=== PATIENT | male | born 1960 | race Caucasian/White ===

== ENCOUNTER 2022-11-27 09:00 | Emergency (ER) | payer OTHER ==
[2022-11-27 09:11] VITALS: RESP 18; TEMP 98
[2022-11-27] MEDS ORDERED: SODIUM CHLORIDE 0.9% 1,000 ML IV STA (09:35)
[2022-11-27] MEDS ORDERED: hydrALAZINE HCL 20 MG/ML 1 ML VIAL IVP STA ×2 (09:36→11:12)
[2022-11-27 10:06] LABS: ALT 23 U/L (4-49); AST 24 U/L (17-59); African American GFR (CKD) >90 (>60 ml/min/1.73 sqM); Albumin 4.6 g/dL (3.5-5.0); Alkaline Phosphatase 79 U/L (38-126); Anion Gap 8 mmol/L; Blood Urea Nitrogen 19 mg/dL (9-20); Calcium 9.2 mg/dL (8.4-10.2); Carbon Dioxide 25 mmol/L (22-30); Chloride 109 mmol/L (98-107); Glucose 100 mg/dL (74-99); Non-African American GFR(CKD) >90 (>60 ml/min/1.73 sqM); Potassium 4.1 mmol/L (3.5-5.1); Sodium 142 mmol/L (137-145); Total Bilirubin 0.6 mg/dL (0.2-1.3); Total Protein 7.4 g/dL (6.3-8.2)
[2022-11-27 10:16] LABS: Basophils # (A) 0.1 k/uL (0-0.2); Basophils % (A) 1 %; Eosinophils # (A) 0.1 k/uL (0-0.7); Eosinophils % (A) 2 %; HCT 49.6 % (39.0-53.0); HGB 16.6 gm/dL (13.0-17.5); Lymphocytes # (A) 1.2 k/uL (1.0-4.8); Lymphocytes % (A) 14 %; MCH 29.5 pg (25.0-35.0); MCHC 33.5 g/dL (31.0-37.0); MCV 88.1 fL (80.0-100.0); Mean Platelet Volume 7.5; Monocytes # (A) 0.4 k/uL (0-1.0); Monocytes % (A) 5 %; Neutrophils # (A) 7.1 k/uL (1.3-7.7); Neutrophils % (A) 78 %; Platelet Count 211 k/uL (150-450); RBC 5.63 m/uL (4.30-5.90); RDW 13.9 % (11.5-15.5)
--- NOTE | 2022-11-27 10:25 | XR ---
EXAMINATION TYPE: XR chest 2V DATE OF EXAM: 11/27/2022 COMPARISON: None HISTORY: 62-year-old male with weakness TECHNIQUE: PA and lateral views FINDINGS: Heart normal size. Aorta shows mild tortuosity. Pulmonary vasculature within normal limits. Some mini mal strandy atelectasis of the left base. No consolidation or pleural effusion. Extensive gauge mid a nd lower thoracic spine. Mild hyperinflation. IMPRESSION: Mild hyperinflation may relate to depth of inspiration or underlying emphysema. No acute cardiopulmon gulshan process. 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
[2022-11-27 10:27] VITALS: PULSE 67
[2022-11-27 10:30] LABS: Prothrombin Time 10.4 sec (9.0-12.0)
[2022-11-27 11:14] VITALS: BP 156/92
--- NOTE | 2022-11-27 11:16 | ED ---
General Adult HPI - General Chief complaint: Recheck/Abnormal Lab/Rx Stated complaint: wants a check up Time Seen by Provider: 11/27/22 09:13 Source: patient, family, RN notes reviewed Mode of arrival: ambulatory Limitations: no limitations - History of Present Illness Initial comments: 62-year-old male presents emergency Department with chief complaint of wanting a regular checkup. Patient states he has not seen a physician in a very long time. Patient states that he is brought in by family has no complaints he denies headache, dizziness, nausea, vomiting, chest pain, shortness of breath he does admit that he is a smoker at least one pack every 3 days. Patient states she does notice he urinates a large amount and friends up to be getting a large amount of water. He denies any leg pain or swelling denies any change in caliber of his stools he denies focal weakness he states he has some blurred vision but he wears glasses for this. - Related Data Previous Rx's Medication Instructions Recorded lisinopriL [Zestril] 10 mg PO DAILY #30 tab 11/27/22 Allergies Allergy/AdvReac Type Severity Reaction Status Date / Time Sulfa (Sulfonamide Allergy Swelling Verified 11/27/22 09:11 Antibiotics) Review of Systems ROS Statement: Those systems with pertinent positive or pertinent negative responses have been documented in the HPI. ROS Other: All systems not noted in ROS Statement are negative. Past Medical History Past Medical History: No Reported History History of Any Multi-Drug Resistant Organisms: None Reported Past Surgical History: No Surgical Hx Reported Past Psychological History: No Psychological Hx Reported Smoking Status: Current every day smoker Past Alcohol Use History: None Reported Past Drug Use History: None Reported General Exam Limitations: no limitations General appearance: alert, in no apparent distress Head exam: Present: atraumatic, normocephalic, normal inspection Eye exam: Present: normal appearance, PERRL, EOMI. Absent: scleral icterus, conjunctival injection, periorbital swelling ENT exam: Present: normal exam, normal oropharynx, mucous membranes moist Neck exam: Present: normal inspection, full ROM. Absent: tenderness, meningismus, lymphadenopathy Respiratory exam: Present: wheezes. Absent: normal lung sounds bilaterally, respiratory distress, rales, rhonchi, stridor Cardiovascular Exam: Present: regular rate, normal rhythm, normal heart sounds. Absent: systolic murmur, diastolic murmur, rubs, gallop, clicks GI/Abdominal exam: Present: soft, normal bowel sounds. Absent: distended, tenderness, guarding, rebound, rigid Neurological exam: Present: alert, oriented X3, CN II-XII intact, reflexes normal. Absent: motor sensory deficit Skin exam: Present: warm, dry, intact, normal color. Absent: rash Course Vital Signs 11/27/22 11/27/22 11/27/22 09:06 09:30 10:00 Temperature 98 F Pulse Rate 72 67 67 Respiratory 18 18 18 Rate Blood Pressure 221/119 195/101 180/89 O2 Sat by Pulse 99 100 100 Oximetry 11/27/22 11/27/22 10:30 11:00 Temperature Pulse Rate 69 67 Respiratory Rate Blood Pressure 176/94 156/92 O2 Sat by Pulse 100 100 Oximetry EKG Findings - EKG Comments: EKG Findings:: EKG performed at 9:28 sinus rhythm rate of 64 OH 1:30 QRS 116 QT/QTC 393/102 - EKG Results: EKG: interpreted by OMAR Medical Decision Making - Medical Decision Making Was pt. sent in by a medical professional or institution (, PA, BREAK OUT WORKER, urgent care, hospital, or skilled nursing...) When possible be specific @ -No Did you speak to anyone other than the patient for history (EMS, parent, family, police, friend...)? What history was obtained from this source @ -No Did you review nursing and triage notes (agree or disagree)? Why? @ -I reviewed and agree with nursing and triage notes Were old charts reviewed (outside hosp., previous admission, EMS record, old EKG, old radiological studies, urgent care reports/EKG's, skilled nursing records)? Report findings @ -No old charts were reviewed Differential Diagnosis (chest pain, altered mental status, abdominal pain women, abdominal pain men, vaginal bleeding, weakness, fever, dyspnea, syncope, headac he, dizziness, GI bleed, back pain, seizure, CVA, palpatations, mental health, musculoskeletal)? @ -[Hypertension, weakness, dehydration, renal failure, diabetes, this list is not all-inclusive EKG interpreted by me (3pts min.). @ -As above X-rays interpreted by me (1pt min.). @ -Chest x-ray shows DISH , otherwise no acute cardiopulmonary process CT interpreted by me (1pt min.). @ -None done U/S interpreted by me (1pt. min.). @ -None done What testing was considered but not performed or refused? (CT, X-rays, U/S, labs)? Why? @ -None What meds were considered but not given or refused? Why? @ -None Did you discuss the management of the patient with other professionals (professionals i.e. , PA, BREAK OUT WORKER, lab, RT, psych nurse, director social welfare, cork insulation installer, teacher, law enforcement officer, welfare case worker)? Give summary @ -No Was smoking cessation discussed for >3mins.? @ -I discussed smoking cessation for greater than 3 minutes. The risk of smoking were discussed with the patient including but not limited to risks of cancer, stroke, coronary artery disease and COPD. Also discussed with patient were multiple methods of quitting smoking. Lastly we discussed the financial cost of smoking. Was critical care preformed (if so, how long)? @ -No Were there social determinants of health that impacted care today? How? (Homelessness, low income, unemployed, alcoholism, drug addiction, transportation, low edu. Level, literacy, decrease access to med. care, fdc, rehab)? @ -No Was there de-escalation of care discussed even if they declined (Discuss DNR or withdrawal of care, Hospice)? DNR status @ -No What co-morbidities impacted this encounter? (DM, HTN, Smoking, COPD, CAD, Cancer, CVA, ARF, Chemo, Hep., AIDS, mental health diagnosis, sleep apnea, morbid obesity)? @ -None Was patient admitted / discharged? Hospital course, mention meds given and route, prescriptions, significant lab abnormalities, going to OR and other pertinent info. @ -Discharge patient does have hypertension blood pressures improved after hydralazine patient is asymptomatic updated lab results did have a long dis cussion regarding need for urgent follow-up close monitoring, smoking cessation Undiagnosed new problem with uncertain prognosis? @ -No Drug Therapy requiring intensive monitoring for toxicity (Heparin, Nitro, Insulin, Cardizem)? @ -No Were any procedures done? @ -No Diagnosis/symptom? @ -Hypertension Acute, or Chronic, or Acute on Chronic? @ -Acute Uncomplicated (without systemic symptoms) or Complicated (systemic symptoms)? @ -Uncomplicated Side effects of treatment? @ -No Exacerbation, Progression, or Severe Exacerbation? @ -No Poses a threat to life or bodily function? How? (Chest pain, [place], [place], pneumonia, PE, COPD, DKA, ARF, appy, cholecystitis, CVA, Diverticulitis, Homicidal, Suicidal, threat to staff... and all critical care pts) @ -No - Lab Data Result diagrams: 11/27/22 09:46 11/27/22 09:46 Lab Results 11/27/22 11/27/22 11/27/22 Range/Units 09:46 09:46 09:46 WBC 9.0 (3.8-10.6) k/uL RBC 5.63 (4.30-5.90) m/uL Hgb 16.6 (13.0-17.5) gm/dL Hct 49.6 (39.0-53.0) % MCV 88.1 (80.0-100.0) fL MCH 29.5 (25.0-35.0) pg MCHC 33.5 (31.0-37.0) g/dL RDW 13.9 (11.5-15.5) % Plt Count 211 (150-450) k/uL MPV 7.5 Neutrophils % 78 % Lymphocytes % 14 % Monocytes % 5 % Eosinophils % 2 % Basophils % 1 % Neutrophils # 7.1 (1.3-7.7) k/uL Lymphocytes # 1.2 (1.0-4.8) k/uL Monocytes # 0.4 (0-1.0) k/uL Eosinophils # 0.1 (0-0.7) k/uL Basophils # 0.1 (0-0.2) k/uL PT 10.4 (9.0-12.0) sec INR 1.0 (<1.2) APTT 22.0 (22.0-30.0) sec Sodium 142 (137-145) mmol/L Potassium 4.1 (3.5-5.1) mmol/L Chloride 109 H (98-107) mmol/L Carbon Dioxide 25 (22-30) mmol/L Anion Gap 8 mmol/L BUN 19 (9-20) mg/dL Creatinine 0.85 (0.66-1.25) mg/dL Est GFR (CKD-EPI)AfAm >90 (>60 ml/min/1.73 sqM) Est GFR (CKD-EPI)NonAf >90 (>60 ml/min/1.73 sqM) Glucose 100 H (74-99) mg/dL Plasma Lactic Acid Alexander (0.7-2.0) mmol/L Calcium 9.2 (8.4-10.2) mg/dL Magnesium 2.0 (1.6-2.3) mg/dL Total Bilirubin 0.6 (0.2-1.3) mg/dL AST 24 (17-59) U/L ALT 23 (4-49) U/L Alkaline Phosphatase 79 (38-126) U/L Troponin I (0.000-0.034) ng/mL Total Protein 7.4 (6.3-8.2) g/dL Albumin 4.6 (3.5-5.0) g/dL Urine Color Urine Appearance (Clear) Urine pH (5.0-8.0) Ur Specific Mcintosh (1.001-1.035) Urine Protein (Negative) Urine Glucose (UA) (Negative) Urine Ketones (Negative) Urine Blood (Negative) Urine Nitrite (Negative) Urine Bilirubin (Negative) Urine Urobilinogen (<2.0) mg/dL Ur Leukocyte Esterase (Negative) Urine RBC (0-5) /hpf Urine WBC (0-5) /hpf 11/27/22 11/27/22 11/27/22 Range/Units 09:46 09:46 09:46 WBC (3.8-10.6) k/uL RBC (4.30-5.90) m/uL Hgb (13.0-17.5) gm/dL Hct (39.0-53.0) % MCV (80.0-100.0) fL MCH (25.0-35.0) pg MCHC (31.0-37.0) g/dL RDW (11.5-15.5) % Plt Count (150-450) k/uL MPV Neutrophils % % Lymphocytes % % Monocytes % % Eosinophils % % Basophils % % Neutrophils # (1.3-7.7) k/uL Lymphocytes # (1.0-4.8) k/uL Monocytes # (0-1.0) k/uL Eosinophils # (0-0.7) k/uL Basophils # (0-0.2) k/uL PT (9.0-12.0) sec INR (<1.2) APTT (22.0-30.0) sec Sodium (137-145) mmol/L Potassium (3.5-5.1) mmol/L Chloride (98-107) mmol/L Carbon Dioxide (22-30) mmol/L Anion Gap mmol/L BUN (9-20) mg/dL Creatinine (0.66-1.25) mg/dL Est GFR (CKD-EPI)AfAm (>60 ml/min/1.73 sqM) Est GFR (CKD-EPI)NonAf (>60 ml/min/1.73 sqM) Glucose (74-99) mg/dL Plasma Lactic Acid Alexander 1.0 (0.7-2.0) mmol/L Calcium (8.4-10.2) mg/dL Magnesium (1.6-2.3) mg/dL Total Bilirubin (0.2-1.3) mg/dL AST (17-59) U/L ALT (4-49) U/L Alkaline Phosphatase (38-126) U/L Troponin I <0.012 (0.000-0.034) ng/mL Total Protein (6.3-8.2) g/dL Albumin (3.5-5.0) g/dL Urine Color Light Yellow Urine Appearance Clear (Clear) Urine pH 7.0 (5.0-8.0) Ur Specific Mcintosh 1.010 (1.001-1.035) Urine Protein Negative (Negative) Urine Glucose (UA) Negative (Negative) Urine Ketones Negative (Negative) Urine Blood Small H (Negative) Urine Nitrite Negative (Negative) Urine Bilirubin Negative (Negative) Urine Urobilinogen <2.0 (<2.0) mg/dL Ur Leukocyte Esterase Negative (Negative) Urine RBC 4 (0-5) /hpf Urine WBC <1 (0-5) /hpf Disposition Clinical Impression: Hypertension Disposition: HOME SELF-CARE Condition: Stable Instructions (If sedation given, give patient instructions): Hypertension (ED) Additional Instructions: Please return to the Emergency Department if symptoms worsen or any other concerns. Prescriptions: lisinopriL [Zestril] 10 mg PO DAILY #30 tab Is patient prescribed a controlled substance at d/c from ED?: No Referrals: Rex Colbert MD [REFERRING] - 1-2 days Time of Disposition: 11:43
[2022-11-27 11:24] LABS: Appearance,Urine Clear (Clear); Bilirubin,Urine Negative (Negative); Blood,Urine Small (Negative); Color,Urine Light Yellow; Glucose,Urine (UA) Negative (Negative); Ketones,Urine Negative (Negative); Leukocyte Esterase,Urine Negative (Negative); Nitrite,Urine Negative (Negative); Protein,Urine Negative (Negative); RBC,Urine 4 /hpf (0-5); Urobilinogen,Urine <2.0 mg/dL (<2.0); WBC,Urine <1 /hpf (0-5)
== END 2022-11-27 12:10 | disposition home or self-care (01) ==
LOC: EC 09:00
DX: I10 Essential (primary) hypertension (principal); F17.200 Nicotine dependence, unspecified, uncomplicated; Z88.2 Allergy status to sulfonamides
CPT/HCPCS: 36415; 93005; 80053; 83605; 83735; 84484; 85025; 85610; 85730; 81001; 71046; 99284; 96374; 96361 ×2; J0360

== ENCOUNTER 2024-01-06 11:03 | Inpatient (IN) | payer OTHER ==
[2024-01-06] MEDS: MIDAZOLAM 1 MG/ML 5 ML VIAL IV STA (11:11)
[2024-01-06] MEDS: SODIUM CHLORIDE 0.9% 1,000 ML IV STA (11:15)
[2024-01-06] MEDS ORDERED: NITROGLYCERIN SL TABS 0.4 MG TAB SUBLINGUAL PRN (11:31)
[2024-01-06] MEDS: AMIODARONE 360 MG in DEXTROSE 5% IN WATER 200 ML IV ONE (11:33)
[2024-01-06] MEDS: NOREPINEPHRINE 4 MG in SODIUM CHLORIDE 0.9% 250 ML IV ONE (11:47)
[2024-01-06 11:48] LABS: Basophils # (A) 0.1 k/uL (0-0.2); Basophils % (A) 1 %; Eosinophils # (A) 0.1 k/uL (0-0.7); Eosinophils % (A) 1 %; HCT 45.5 % (39.0-53.0); HGB 14.1 gm/dL (13.0-17.5); Hypochromasia Slight; Lymphocytes # (A) 4.5 k/uL (1.0-4.8); Lymphocytes % (A) 44 %; MCV 93.6 fL (80.0-100.0); Mean Platelet Volume 8.6; Monocytes # (A) 0.4 k/uL (0-1.0); Monocytes % (A) 4 %; Neutrophils % (A) 49 %; Platelet Count 164 k/uL (150-450); RBC 4.86 m/uL (4.30-5.90); RDW 13.7 % (11.5-15.5); WBC 10.2 k/uL (3.8-10.6)
[2024-01-06 11:52] LABS: INR 1.1 (<1.2); Partial Thromboplastin Time 24.2 sec (22.0-30.0); Prothrombin Time 12.1 sec (10.0-12.5)
[2024-01-06 11:59] LABS: ALT 32 U/L (4-49); AST 46 U/L (17-59); African American GFR (CKD) >90 (>60 ml/min/1.73 sqM); Alkaline Phosphatase 60 U/L (38-126); Anion Gap 12 mmol/L; Blood Urea Nitrogen 14 mg/dL (9-20); Carbon Dioxide 17 mmol/L (22-30); Chloride 111 mmol/L (98-107); Glucose 265 mg/dL (74-99); Non-African American GFR(CKD) 78 (>60 ml/min/1.73 sqM); Potassium 4.1 mmol/L (3.5-5.1); Sodium 140 mmol/L (137-145); Total Bilirubin 0.8 mg/dL (0.2-1.3); Total Protein 5.6 g/dL (6.3-8.2)
[2024-01-06] MEDS: NOREPINEPHRINE 32 MG in SODIUM CHLORIDE 0.9% 218 ML IV ONE (12:13)
[2024-01-06] MEDS ORDERED: NALOXONE 0.4 MG/ML 1 ML VIAL IV PRN (12:22)
[2024-01-06] MEDS: SODIUM CHLORIDE 0.9% 1,000 ML IV ONE ×2 (12:25→13:12)
--- NOTE | 2024-01-06 12:28 | XR ---
EXAMINATION TYPE: XR chest 1V portable DATE OF EXAM: 01/06/2024 12:18 PM CLINICAL INDICATION:Male, 63 years old with history of chest pain; [facility] COMPARISON: Chest radiograph from 11/27/2022 TECHNIQUE: XR chest 1V portable Frontal view of the chest. FINDINGS: ET tube tip 2.7 cm above the wendi. NG tube tip is well within the stomach. Lungs/Pleura: Cephalization of pulmonary venous flow interstitial edema Pulmonary vascularity: Unremarkable. Heart/mediastinum: Cardiomediastinal silhouette is unremarkable. Musculoskeletal: No acute osseous pathology. Other findings: None Lines/Tubes: Tracheostomy cannula tip projecting over the trachea. Nasogastric tube with distal tip projecting over the stomach. IMPRESSION: No acute cardiopulmonary disease/process. Well-positioned support lines and tubes
[2024-01-06] MEDS ORDERED: fentaNYL (PF) 50 MCG/ML 2 ML AMP ONE (12:42)
[2024-01-06] MEDS ORDERED: HEPARIN SODIUM 1,000 UN/ML (10ML VL) ONE (12:42)
--- NOTE | 2024-01-06 12:52 | P.CRDCN ---
History of Present Illness History of present illness: HISTORY OF PRESENTING ILLNESS This is a pleasant 63-year-old who presents secondary to cardiac arrest. Patient apparently had been doing fine and had gone down to the basement and then the followed him a few minutes later and found him collapsed unresponsive on the floor.patient currently unresponsive and not available to provide more history. Patient then had prolonged cardiac arrest with initial shockable rhythm ventricular fibrillation per EMS/E ER report. Patient had p rolonged CPR however good quality with mechanical CPR. Patient has had PEA and eventually had ROSC however is being maintained on norepinephrine with blood pressures in the 70s over 40s. patient with 3 mm pupils responsive to light and apparently had been breathing over the ventilator. EKG showsloss of P waves, what appears to be A. fib with widening QRS and mild ST elevation in V1 and V2. he did receive Versed for sedation. REVIEW OF SYSTEMS At the time of my exam: unable to obtain secondary to being intubated PHYSICAL EXAMINATION Vital signs reviewed. CONSTITUTIONAL: ill-appearing, intubated HEENT: Head is normocephalic. Pupils are equal, round. Sclerae anicteric. Mucous membranes of the mouth are moist. No JVD. No carotid bruit. CHEST EXAMINATION: Lungs are clear to auscultation. No chest wall tenderness is noted on palpation or with deep breathing. HEART EXAMINATION: IRRegular rate and rhythm. S1, S2 heard. No murmurs, gallops or rub. ABDOMEN: Soft, nontender. Positive bowel sounds. EXTREMITIES: trace peripheral pulses, no lower extremity edema and no calf tenderness. NEUROLOGIC EXAMINATION: Patient is intubated and sedated ASSESSMENT cardiac arrest, most likely acute coronary syndrome Non-STEMI Lactic acidosis Altered mental status, rule out hypoxic encephalopathy A. fib cardiogenic shock PLAN patient with cardiac arrest and abnormal EKG. 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 Patient and cardiogenic shock and may need support device. Check 2-D echo. Further recommendations to follow. Past Medical History Past Medical History: No Reported History History of Any Multi-Drug Resistant Organisms: None Reported Past Surgical History: No Surgical Hx Reported Past Psychological History: No Psychological Hx Reported Smoking Status: Current every day smoker Past Alcohol Use History: None Reported Past Drug Use History: None Reported Medications and Allergies Home Medications Medication Instructions Recorded Confirmed Type lisinopriL [Zestril] 10 mg PO DAILY #30 tab 11/27/22 01/06/24 Rx Tamsulosin HCl [Flomax] 0.4 mg PO HS 01/06/24 01/06/24 History Allergies Allergy/AdvReac Type Severity Reaction Status Date / Time Sulfa (Sulfonamide Allergy Swelling Verified 01/06/24 11:10 Antibiotics) Physical Exam Vitals: Vital Signs Temp Pulse Resp BP FiO2 01/06/24 12:15 66 18 78/54 01/06/24 12:10 64 18 78/57 01/06/24 12:05 72/55 01/06/24 12:03 75/57 01/06/24 11:45 61/45 01/06/24 11:40 64/47 01/06/24 11:35 65/54 01/06/24 11:30 82/61 100 01/06/24 11:24 97.2 F L 92/69 Intake and Output 01/05/24 01/06/24 01/06/24 22:59 06:59 14:59 Other: Weight 73.7 kg Results 01/06/24 11:35 01/06/24 11:35 Cardiac Enzymes 01/06/24 01/06/24 Range/Units 11:35 11:35 AST 46 (17-59) U/L Troponin I 0.086 H* (0.000-0.034) ng/mL Coagulation 01/06/24 Range/Units 11:35 PT 12.1 (10.0-12.5) sec APTT 24.2 (22.0-30.0) sec CBC 01/06/24 Range/Units 11:35 WBC 10.2 (3.8-10.6) k/uL RBC 4.86 (4.30-5.90) m/uL Hgb 14.1 (13.0-17.5) gm/dL Hct 45.5 (39.0-53.0) % Plt Count 164 (150-450) k/uL Comprehensive Metabolic Panel 01/06/24 Range/Units 11:35 Sodium 140 (137-145) mmol/L Potassium 4.1 (3.5-5.1) mmol/L Chloride 111 H (98-107) mmol/L Carbon Dioxide 17 L (22-30) mmol/L BUN 14 (9-20) mg/dL Creatinine 1.03 (0.66-1.25) mg/dL Glucose 265 H (74-99) mg/dL Calcium 8.0 L (8.4-10.2) mg/dL AST 46 (17-59) U/L ALT 32 (4-49) U/L Alkaline Phosphatase 60 (38-126) U/L Total Protein 5.6 L (6.3-8.2) g/dL Albumin 3.0 L (3.5-5.0) g/dL Current Medications Generic Name Dose Route Start Last Admin Trade Name Freq PRN Reason Stop Dose Admin Amiodarone HCl 360 mg/ 200 mls @ 33.333 mls/hr 01/06/24 12:00 01/06/24 11:33 Dextrose/Water IV 01/06/24 17:59 1 mg/min .Q6H ONE 33.333 mls/hr Administration Protocol 1 MG/MIN Amiodarone HCl 450 mg/ 250 mls @ 16.667 mls/hr 01/06/24 18:00 Dextrose/Water IV 01/07/24 11:59 .Q15H COREEN Protocol 0.5 MG/MIN Norepinephrine Bitartrate 4 mg 254 mls @ 9.996 mls/hr 01/06/24 11:41 01/06/24 11:47 / Sodium Chloride IV 01/07/24 11:40 0.03 mcg/kg/min .Q24H ONE 9.996 mls/hr Administration Protocol 0.03 MCG/KG/MIN Norepinephrine Bitartrate 32 250 mls @ 1.23 mls/hr 01/06/24 12:02 01/06/24 12:13 mg/ Sodium Chloride IV 01/07/24 12:01 0.03 mcg/kg/min .Q24H ONE 1.23 mls/hr Administration Protocol 0.03 MCG/KG/MIN Sodium Chloride 1,000 mls @ 999 mls/hr 01/06/24 12:24 01/06/24 12:25 Saline 0.9% IV 01/06/24 13:24 999 mls/hr .Q1H1M ONE Administration Naloxone HCl 0.2 mg 01/06/24 12:22 Naloxone 0.4 Mg/Ml 1 Ml Vial IV Q2M PRN Opioid Reversal Nitroglycerin 0.4 mg 01/06/24 11:31 Nitroglycerin Sl Tabs 0.4 Mg Tab SUBLINGUAL Q5M PRN Chest Pain Intake and Output 01/05/24 01/06/24 01/06/24 22:59 06:59 14:59 Other: Weight 73.7 kg Patient Weight 01/07/24 06:59 Weight 73.7 kg 01/06/24 11:35 01/06/24 11:35
[2024-01-06] MEDS: IV FLUID CONTINUATION 1,000 ML IV ONE ×2 (12:56)
[2024-01-06] MEDS: LIDOCAINE 1% INJ 10MG/ML (20 ML MDV) SQ ONE (12:57)
--- NOTE | 2024-01-06 12:58 | CT ---
EXAMINATION TYPE: CT brain wo con CT DLP: 1095.2 mGycm, Automated exposure control for dose reduction was used. DATE OF EXAM: 01/06/2024 12:41 PM COMPARISON: None. CLINICAL INDICATION:Male, 63 years old with history of Cardiac arrest with fall, Cardiac Arrest with Fall TECHNIQUE: Brain: Axial CT images of the brain were obtained with coronal and sagittal reformats created and rev iewed. Contrast used: None. Oral contrast used: None. FINDINGS: Brain: Extra-axial spaces: No abnormal extra-axial fluid collections. Ventricular system: Mildly prominent Cerebral parenchyma: No acute intraparenchymal hemorrhage or mass effect. The bojorquez-white junction is well differentiated Periventricular and deep white matter low attenuation consistent with chronic microangiopathy. Cerebellum: Unremarkable. Mass effect: No evidence of midline shift. Intracranial vasculature: unremarkable Soft tissues: Normal. Calvarium/osseous structures: No depressed skull fracture. Paranasal sinuses and mastoid air cells: Mild scattered paranasal sinus disease. Visualized orbits: Orbital contents are intact. IMPRESSION: No acute intracranial process. Involution and chronic microangiopathy.
[2024-01-06] MEDS ORDERED: ASPIRIN 81 MG ONE (13:04)
--- NOTE | 2024-01-06 13:04 | ED ---
General Adult HPI - General Chief complaint: Cardiac Arrest/CPR Stated complaint: Cardiac arrest Time Seen by Provider: 01/06/24 11:31 Source: family, EMS, RN notes reviewed, old records reviewed Mode of arrival: EMS Limitations: no limitations - History of Present Illness Initial comments: 63-year-old male with out of hospital cardiac arrest. According to family the patient had been not complaining of anything. He was in the basement doing laundry when the family heard him collapse. He was unresponsive without pulses. CPR was initiated by family and paramedics arrived relatively quickly. He was in a shockable rhythm and received 5 total defibrillations by paramedics and fire department. He regained pulses during transport. He had been intubated by paramedics in the field. Patient lost pulses again during transport and presented to the hospital in PEA rhythm. Resuscitation was continued according to ACLS guidelines. - Related Data Home Medications Medication Instructions Recorded Confirmed Tamsulosin HCl [Flomax] 0.4 mg PO HS 01/06/24 01/06/24 Previous Rx's Medication Instructions Recorded lisinopriL [Zestril] 10 mg PO DAILY #30 tab 11/27/22 Allergies Allergy/AdvReac Type Severity Reaction Status Date / Time Sulfa (Sulfonamide Allergy Swelling Verified 01/06/24 11:10 Antibiotics) Review of Systems ROS Statement: Those systems with pertinent positive or pertinent negative responses have been documented in the HPI. ROS Other: All systems not noted in ROS Statement are negative. Past Medical History Past Medical History: No Reported History History of Any Multi-Drug Resistant Organisms: None Reported Past Surgical History: No Surgical Hx Reported Past Psychological History: No Psychological Hx Reported Smoking Status: Current every day smoker Past Alcohol Use History: None Reported Past Drug Use History: None Reported General Exam General appearance: other (Cyanotic, agonal respirations) Eye exam: Present: PERRL (3 mm bilateral, sluggish root) Respiratory exam: Present: other (Decreased breath sounds bilaterally) Cardiovascular Exam: Present: other (No heart sounds) GI/Abdominal exam: Present: distended Extremities exam: Absent: pedal edema Skin exam: Present: cyanosis, pallor Course Vital Signs 01/06/24 01/06/24 01/06/24 11:24 11:30 11:35 Temperature 97.2 F L Pulse Rate [ Media Production Manager ] Respiratory Rate Blood Pressure 92/69 82/61 65/54 [Left Arm Supine] Fraction of 100 Inspired Oxygen (FIO2) 01/06/24 01/06/24 01/06/24 11:40 11:45 12:03 Temperature Pulse Rate [ Media Production Manager ] Respiratory Rate Blood Pressure 64/47 61/45 75/57 [Left Arm Supine] Fraction of Inspired Oxygen (FIO2) 01/06/24 01/06/24 01/06/24 12:05 12:10 12:15 Temperature Pulse Rate [ 64 66 Media Production Manager ] Respiratory 18 18 Rate Blood Pressure 72/55 78/57 78/54 [Left Arm Supine] Fraction of Inspired Oxygen (FIO2) Procedures - Central Line Placement Right Femoral Consent Obtained: emergent situation Patient Placed on Monitor/Pulse Ox: Yes MD Prep: gloves Central Line Prep: Chlorhexidine scrub Ultrasound Used for Placement: Yes Central Line Lumen Inserted: triple Bloods Obtained for Lab: Yes Central Line Position: good blood return, all ports aspirated, flushed, capped, sutured in place with 3-0 nylon Dressing Applied: Tegaderm Patient Tolerated Procedure: well Complications: none - Intubation Sedative: Versed Mg Given: 5 Laryngoscope: Jack Size: 4 ET Tube Size: 7.5 ET Tube Uncuffed: No Tube Secured Depth (cm): 23 Tube Secured Location: lips Tube Placement Confirmation: visualized tube passing through cords, equal breath sounds bilaterally, no breath sounds over epigastrium, confirmation by capnometry Patient Tolerated Procedure: well Intubation Complications: none Medical Decision Making - Medical Decision Making Was pt. sent in by a medical professional or institution (, PA, AEROBICS INSTRUCTOR, urgent care, hospital, or residential...) When possible be specific @ -No Did you speak to anyone other than the patient for history (EMS, parent, family, police, friend...)? What history was obtained from this source @ -No Did you review nursing and triage notes (agree or disagree)? Why? @ -I reviewed and agree with nursing and triage notes Were old charts reviewed (outside hosp., previous admission, EMS record, old EKG, old radiological studies, urgent care reports/EKG's, residential records)? Report findings @ -No old charts were reviewed Differential Diagnosis out of hospital cardiac arrest, pulmonary embolism, myocardial infarction, intracranial hemorrhage, aortic dissection EKG interpreted by me (3pts min.). @Prehospital EKG showing atrial fibrillation with elevation in aVL significant artifact limiting assessment. EKG at 1127 showing atrial fibrillation, wide-complex rhythm with ST segment elevation in V1 and V2 as well as aVL rate of 100, QRS duration 117, QTc 398 X-rays interpreted by me (1pt min.). @ -Postintubation x-ray showing appropriate placed ET tube and gastric tube. There is opacities in the bilateral lung dunlap likely pulmonary contusion from CPR. CT interpreted by me (1pt min.). @CT brain negative for intracranial hemorrhage. CT angiography of the chest negative for pulmonary embolism U/S interpreted by me (1pt. min.). @ -None done What testing was considered but not performed or refused? (CT, X-rays, U/S, labs )? Why? @ -None What meds were considered but not given or refused? Why? @ -None Did you discuss the management of the patient with other professionals (professionals i.e. Dr., PA, AEROBICS INSTRUCTOR, lab, RT, psych nurse, administrator social welfare, hazard waste handler, teacher, police liaison officer, case finisher)? Give summary @ -Case discussed with Dr. June covering for cardiology, Dr. Hagan the work and family life consultant and Dr. Marin the admitting physician. Was smoking cessation discussed for >3mins.? @ -No Was critical care preformed (if so, how long)? @ -Yes, 95 minutes Were there social determinants of health that impacted care today? How? (Homelessness, low income, unemployed, alcoholism, drug addiction, transportation, low edu. Level, literacy, decrease access to med. care, group home, rehab)? @ -No Was there de-escalation of care discussed even if they declined (Discuss DNR or withdrawal of care, Hospice)? DNR status @ -No What co-morbidities impacted this encounter? (DM, HTN, Smoking, COPD, CAD, Cancer, CVA, ARF, Chemo, Hep., AIDS, mental health diagnosis, sleep apnea, morbid obesity)? @ -hypertension Was patient admitted / discharged? Hospital course, mention meds given and route, prescriptions, significant lab abnormalities, going to OR and other pertinent info. @ -63-year-old male who does not regularly follow with a physician presenting with a out of hospital cardiac arrest. Please refer to the nursing documentat ion for details of his in-hospital resuscitation. There was prolonged CPR prior to arrival and CPR continued with intermittent episodes of return of spontaneous circulation. Patient was both in PEA as well as tracheal fibrillation and ventricular tachycardia. Patient was intubated by paramedics and reintubated by myself once in the emergency department. Patient had central line placed. His initial laboratory testing showed an elevated lactic which is consistent with prolonged downtime and and elevated troponin. The resuscitation was continued due to signs of life in the emergency department including pupillary reflex, breathing over the ventilator and cardiac activity on bedside echo. The patient had some improvement and ultimately regained an element of stability with several blood pressures in the 70s. He was continued on amiodarone and Levophed and ultimately taken to the Fisheries Director for the possibility of acute MD as a cause of his arrest. He will be admitted to the ICU. Undiagnosed new problem with uncertain prognosis? @ -No Drug Therapy requiring intensive monitoring for toxicity (Heparin, Nitro, Insulin, Cardizem)? @ -No Were any procedures done? @Yes, intubation and central line Diagnosis/symptom? @ -Out of hospital cardiac arrest with return of spontaneous circulation Acute, or Chronic, or Acute on Chronic? @Acute Uncomplicated (without systemic symptoms) or Complicated (systemic symptoms)? @ -Default Side effects of treatment? @ -No Exacerbation, Progression, or Severe Exacerbation? @ -No Poses a threat to life or bodily function? How? (Chest pain, USA, MD, pneumonia, PE, COPD, DKA, ARF, appy, cholecystitis, CVA, Diverticulitis, Homicidal, Suicidal, threat to staff... and all critical care pts) @ -[Yes, cardiac arrest, ACS - Lab Data Result diagrams: 01/07/24 15:03 01/07/24 10:17 Lab Results 01/05/24 01/06/24 01/06/24 Range/Units 23:25 11:35 11:35 WBC 10.2 (3.8-10.6) k/uL RBC 4.86 (4.30-5.90) m/uL Hgb 14.1 (13.0-17.5) gm/dL Hct 45.5 (39.0-53.0) % MCV 93.6 (80.0-100.0) fL MCH 29.0 (25.0-35.0) pg MCHC 31.0 (31.0-37.0) g/dL RDW 13.7 (11.5-15.5) % Plt Count 164 (150-450) k/uL MPV 8.6 Neutrophils % 49 % Lymphocytes % 44 % Monocytes % 4 % Eosinophils % 1 % Basophils % 1 % Neutrophils # 5.0 (1.3-7.7) k/uL Lymphocytes # 4.5 (1.0-4.8) k/uL Monocytes # 0.4 (0-1.0) k/uL Eosinophils # 0.1 (0-0.7) k/uL Basophils # 0.1 (0-0.2) k/uL Hypochromasia Slight PT 12.1 (10.0-12.5) sec INR 1.1 (<1.2) APTT 24.2 (22.0-30.0) sec ABG Lactic Acid 8.3 H* (0.5-1.6) mmol/L Sodium (137-145) mmol/L Potassium (3.5-5.1) mmol/L Chloride (98-107) mmol/L Carbon Dioxide (22-30) mmol/L Anion Gap mmol/L BUN (9-20) mg/dL Creatinine (0.66-1.25) mg/dL Est GFR (CKD-EPI)AfAm (>60 ml/min/1.73 sqM) Est GFR (CKD-EPI)NonAf (>60 ml/min/1.73 sqM) Glucose (74-99) mg/dL Lactic Ac Sepsis Rflx Plasma Lactic Acid Alexander (0.7-2.0) mmol/L Calcium (8.4-10.2) mg/dL Magnesium (1.6-2.3) mg/dL Total Bilirubin (0.2-1.3) mg/dL AST (17-59) U/L ALT (4-49) U/L Alkaline Phosphatase (38-126) U/L Troponin I (0.000-0.034) ng/mL Total Protein (6.3-8.2) g/dL Albumin (3.5-5.0) g/dL 01/06/24 01/06/24 01/06/24 Range/Units 11:35 11:35 11:35 WBC (3.8-10.6) k/uL RBC (4.30-5.90) m/uL Hgb (13.0-17.5) gm/dL Hct (39.0-53.0) % MCV (80.0-100.0) fL MCH (25.0-35.0) pg MCHC (31.0-37.0) g/dL RDW (11.5-15.5) % Plt Count (150-450) k/uL MPV Neutrophils % % Lymphocytes % % Monocytes % % Eosinophils % % Basophils % % Neutrophils # (1.3-7.7) k/uL Lymphocytes # (1.0-4.8) k/uL Monocytes # (0-1.0) k/uL Eosinophils # (0-0.7) k/uL Basophils # (0-0.2) k/uL Hypochromasia PT (10.0-12.5) sec INR (<1.2) APTT (22.0-30.0) sec ABG Lactic Acid (0.5-1.6) mmol/L Sodium 140 (137-145) mmol/L Potassium 4.1 (3.5-5.1) mmol/L Chloride 111 H (98-107) mmol/L Carbon Dioxide 17 L (22-30) mmol/L Anion Gap 12 mmol/L BUN 14 (9-20) mg/dL Creatinine 1.03 (0.66-1.25) mg/dL Est GFR (CKD-EPI)AfAm >90 (>60 ml/min/1.73 sqM) Est GFR (CKD-EPI)NonAf 78 (>60 ml/min/1.73 sqM) Glucose 265 H (74-99) mg/dL Lactic Ac Sepsis Rflx Plasma Lactic Acid Alexander 7.9 H* (0.7-2.0) mmol/L Calcium 8.0 L (8.4-10.2) mg/dL Magnesium 2.0 (1.6-2.3) mg/dL Total Bilirubin 0.8 (0.2-1.3) mg/dL AST 46 (17-59) U/L ALT 32 (4-49) U/L Alkaline Phosphatase 60 (38-126) U/L Troponin I 0.086 H* (0.000-0.034) ng/mL Total Protein 5.6 L (6.3-8.2) g/dL Albumin 3.0 L (3.5-5.0) g/dL 01/06/24 Range/Units 12:00 WBC (3.8-10.6) k/uL RBC (4.30-5.90) m/uL Hgb (13.0-17.5) gm/dL Hct (39.0-53.0) % MCV (80.0-100.0) fL MCH (25.0-35.0) pg MCHC (31.0-37.0) g/dL RDW (11.5-15.5) % Plt Count (150-450) k/uL MPV Neutrophils % % Lymphocytes % % Monocytes % % Eosinophils % % Basophils % % Neutrophils # (1.3-7.7) k/uL Lymphocytes # (1.0-4.8) k/uL Monocytes # (0-1.0) k/uL Eosinophils # (0-0.7) k/uL Basophils # (0-0.2) k/uL Hypochromasia PT (10.0-12.5) sec INR (<1.2) APTT (22.0-30.0) sec ABG Lactic Acid (0.5-1.6) mmol/L Sodium (137-145) mmol/L Potassium (3.5-5.1) mmol/L Chloride (98-107) mmol/L Carbon Dioxide (22-30) mmol/L Anion Gap mmol/L BUN (9-20) mg/dL Creatinine (0.66-1.25) mg/dL Est GFR (CKD-EPI)AfAm (>60 ml/min/1.73 sqM) Est GFR (CKD-EPI)NonAf (>60 ml/min/1.73 sqM) Glucose (74-99) mg/dL Lactic Ac Sepsis Rflx Y Plasma Lactic Acid Alexander (0.7-2.0) mmol/L Calcium (8.4-10.2) mg/dL Magnesium (1.6-2.3) mg/dL Total Bilirubin (0.2-1.3) mg/dL AST (17-59) U/L ALT (4-49) U/L Alkaline Phosphatase (38-126) U/L Troponin I (0.000-0.034) ng/mL Total Protein (6.3-8.2) g/dL Albumin (3.5-5.0) g/dL Critical Care Time Critical Care Time: Yes Total Critical Care Time: 95 Disposition Clinical Impression: Cardiac arrest Disposition: ADMITTED IP TO THIS HOSP Condition: Serious Is patient prescribed a controlled substance at d/c from ED?: No Time of Disposition: 12:30
[2024-01-06] MEDS: ASPIRIN 81 MG NG-TUBE ONE (13:05)
--- NOTE | 2024-01-06 13:05 | CT ---
EXAMINATION TYPE: CT angio chest CT DLP: 381 mGycm, Automated exposure control for dose reduction was used. DATE OF EXAM: 01/06/2024 12:42 PM COMPARISON: Chest radiograph from same day. CLINICAL INDICATION:Male, 63 years old with history of cardiac arrest; Cardiac Arrest with Fall TECHNIQUE/CONTRAST: CTA scan of the thorax is performed without and with IV Contrast, patient injected with 100 ml mL of Isovue 370, MIP images are created and reviewed these are created on a separate workstation.. FINDINGS: Pulmonary Artery: There is no evidence for a filling defect within the pulmonary vasculature to sugge st acute pulmonary embolism. The pulmonary artery is of normal size. Lungs/Pleura: There are areas of groundglass airspace disease and consolidating airspace disease depe ndently throughout both lungs. This is likely a significant bilateral pneumonia. Correlate clinically .. Airway: Endotracheal tube seen in the trachea. Heart: Heart is within normal limits for size. Vasculature: No evidence of aortic aneurysm. Mediastinum: No gross evidence of adenopathy. Musculoskeletal: No acute osseous abnormalities Soft Tissues: Unremarkable. Lower neck: No significant findings. Upper Abdomen: NG tube tip approaches greater curvature stomach.. IMPRESSION: 1. No evidence of pulmonary embolism. 2. Peripheral groundglass pulmonary opacities and consolidating airspace disease with air bronchogram s. Pleural effusions. Likely pneumonia. Correlate with WBC.
[2024-01-06] MEDS: MIDAZOLAM 2 MG/2 ML VIAL IVP ONE (13:09)
[2024-01-06] MEDS: VERAPAMIL SYRINGE (5 MG/10 ML) INTRAARTER ONE (13:10)
[2024-01-06] MEDS: HEPARIN SODIUM 1,000 UN/ML (10ML VL) IV ONE ×2 (13:11→15:43)
[2024-01-06] MEDS: IOPAMIDOL-370 100ML BTL INJ ONE ×3 (13:26→14:35)
[2024-01-06] MEDS ORDERED: TICAGRELOR 90 MG TAB ONE (13:40)
[2024-01-06] MEDS: TICAGRELOR 90 MG TAB NG-TUBE ONE (13:45)
[2024-01-06] MEDS: TICAGRELOR 90 MG TAB PO ONE (13:45)
[2024-01-06] MEDS: fentaNYL (PF) 50 MCG/ML 2 ML AMP IVP ONE (14:08)
[2024-01-06 14:27] LABS: O2 Sat Blood Gas 95.4 %
[2024-01-06 14:28] LABS: O2 Sat Blood Gas 50.8 %
[2024-01-06 14:29] LABS: O2 Sat Blood Gas 50.2 %
[2024-01-06] MEDS ORDERED: ZOLPIDEM 5 MG TAB PO PRN (14:47)
[2024-01-06] MEDS ORDERED: ATROPINE SULFATE 0.1 MG/ML 10ML SYRINGE IV PRN (14:47)
[2024-01-06] MEDS ORDERED: MAG HYDROX/AL HYDROX/SIMETH 30 ML CUP PO PRN (14:47)
[2024-01-06] MEDS ORDERED: RX INFO: IV CONTRAST WAS GIVEN 1 EACH MISC MISCELLANE PRN (14:47)
[2024-01-06] MEDS ORDERED: DEXTROSE 50% SYRINGE 50 ML IVP PRN ×2 (15:38)
[2024-01-06] MEDS ORDERED: fentaNYL (PF) 50 MCG/ML 2 ML AMP IVP PRN (15:39)
[2024-01-06 15:40] LABS: Glucose,Whole Blood 283 mg/dL (70-110)
[2024-01-06 15:43] LABS: ABG Base Excess -6.5 mmol/L; ABG HCO3 20 mmol/L (21-25); ABG Oxygen Saturation 94.8 % (94-97); ABG PCO2 42 mmHg (35-45); ABG PH 7.29 (7.35-7.45); ABG PO2 76 mmHg (83-108); ABG TCO2 21 mmol/L (19-24); Allen Test Performed? Yes
[2024-01-06] MEDS: SODIUM BICARB (1 MEQ/ML) 12.5 ML in DEXTROSE 5% IN WATER 500 ML IV SCH (15:44)
[2024-01-06] MEDS: propofoL 100 ML IV ONE (15:44)
[2024-01-06] MEDS: SODIUM CHLORIDE 0.9% 1,000 ML IV SCH (15:44)
[2024-01-06] MEDS: SODIUM CHLORIDE 0.9% 1,000 ML in EMPTY BAG 1 BAG IV SCH (15:45)
[2024-01-06] MEDS: CISATRACURIUM 2 MG/ML 5 ML VIAL IV ONE (15:45)
--- NOTE | 2024-01-06 15:51 | P.CNPUL ---
History of Present Illness Consult date: 01/06/24 Requesting physician: Tonya Salguero Reason for consult: other Chief complaint: [id number] cardiopulmonary arrest. History of present illness: Pulmonary consult dated January 06, 2024. 63-year-old male who had a [id number] cardiac arrest. The patient apparently had not been complaining of anything before the arrest. He apparently was down in the basement doing laundry, when the family heard him collapse. He apparently was unresponsive without pulses. CPR was initiated by the family, and when the paramedics arrived, he apparently was defibrillated 5 times, and, was intubated at the scene. In the route, he lost pulses again, and apparently was in PEA. He apparently was resuscitated according to ACLS guidelines. The patient was further resuscitated in the emergency department, and apparently lost his pulse numerous times, with continuation of CPR. The patient is seen in the intensive care unit. He apparently was here in the hospital, in mid November, brought in because he was not feeling well, diagnosed with hypertension, and sent home on a pill for hypertension. I believe he was on both Flomax, and lisinopril. The patient apparently has not seen a doctor in many years. He apparently was a tobacco user. The patient is seen in the intensive care unit. He is currently vented. Ventilator settings include volume assist-control, rate 16, tidal volume 450, FiO2 100%, PEEP of 8. The patient is on amiodarone at 1 mg/min, and norepinephrine at 0.5 mcg/kg/min. We placed a right radial art line. The patient ended up going to the catheterization laboratory, was found to have a 100% LAD lesion, was stented, and an Impella device was placed. Brain CT showed nothing acute. Chest x-ray showed an endotracheal tube about 3 cm above the tracheal wendi. CTA was negative for pulmonary embolism, but did show some groundglass changes, potentially consistent with pneumonia or fluid overload. Repeat chest x-ray shows primarily upper lobe airspace disease. Laboratory data includes a white count 10.2, hemoglobin 14.1, hematocrit 45.5, and a platelet count of 164,000. Sodium 140, potassium 4.1, chlorides 111, CO2 17, anion gap 12, BUN 14, and creatinine 1.03. Lactic acid 7.9. Calcium 8. Troponin 0.086. Albumin is 3. Glucose is 283. Review of Systems REVIEW OF SYSTEMS: Review of systems could not be obtained. CONSTITUTIONAL: [Negative.] NEUROLOGIC: [ Negative.] HEENT: [ Negative.] CARDIAC: [Negative.] PULMONARY: [Negative.] GI: [Negative.] : [Negative.] RHEUMATOLOGIC: [ Negative.] IMMUNOLOGIC: [ Negative.] ENDOCRINE: [Negative. ] DERMATOLOGIC: [Negative.] Past Medical History Past Medical History: No Reported History History of Any Multi-Drug Resistant Organisms: None Reported Past Surgical History: No Surgical Hx Reported Past Psychological History: No Psychological Hx Reported Smoking Status: Current every day smoker Past Alcohol Use History: None Reported Past Drug Use History: None Reported Medications and Allergies Home Medications Medication Instructions Recorded Confirmed Type lisinopriL [Zestril] 10 mg PO DAILY #30 tab 11/27/22 01/06/24 Rx Tamsulosin HCl [Flomax] 0.4 mg PO HS 01/06/24 01/06/24 History Allergies Allergy/AdvReac Type Severity Reaction Status Date / Time Sulfa (Sulfonamide Allergy Swelling Verified 01/06/24 11:10 Antibiotics) Physical Exam Osteopathic Statement: *. No significant issues noted on an osteopathic structural exam other than those noted in the History and Physical/Consult. Vitals: Vital Signs Temp Pulse Resp BP FiO2 01/06/24 13:24 100 01/06/24 12:15 66 18 78/54 01/06/24 12:10 64 18 78/57 01/06/24 12:05 72/55 01/06/24 12:03 75/57 01/06/24 11:45 61/45 01/06/24 11:40 64/47 01/06/24 11:35 65/54 01/06/24 11:30 82/61 100 01/06/24 11:24 97.2 F L 92/69 Intake and Output 01/06/24 01/06/24 01/06/24 06:59 14:59 22:59 Intake Total 450 Balance 450 Intake: IV 450 Other: Weight 73.7 kg No acute distress, sedated, with an orally placed endotracheal tube. HEENT examination is grossly unremarkable. Neck supple. Full range of motion. No adenopathy thyromegaly or neck vein distention. Cardiovascular examination reveals regular rhythm rate. S1-S2 normal. No S3 or S4. No discernible murmur noted. Heart rate 66 bpm. Heart sounds distant. Lungs reveal coarse rhonchi. Breath sounds equal. No wheezes. Few scattered crackles. Breath sounds equal. Abdomen soft without bowel sounds. No masses or tenderness. Extremities are intact. No cyanosis clubbing or edema. Skin is without rash or lesion. Neurologic examination cannot be assessed. Results - Laboratory Findings CBC and BMP: 01/06/24 11:35 01/06/24 11:35 PT/INR, D-dimer PT 12.1 sec (10.0-12.5) 01/06/24 11:35 INR 1.1 (<1.2) 01/06/24 11:35 Abnormal lab findings: Abnormal Labs 01/06/24 01/06/24 01/06/24 11:35 11:35 11:35 Chloride 111 H Carbon Dioxide 17 L Glucose 265 H Plasma Lactic Acid Alexander 7.9 H* Calcium 8.0 L Troponin I 0.086 H* Total Protein 5.6 L Albumin 3.0 L - Diagnostic Findings Chest x-ray: image reviewed CT scan - chest: image reviewed Assessment and Plan Assessment: S/P out of hospital cardiopulmonary arrest, with prolonged resuscitation, and eventual return of spontaneous circulation. S/P intubation, and mechanical ventilation, secondary to cardiopulmonary arrest. 100% LAD lesion, with stenting, and placement of an Impella device. Non-ST segment elevation myocardial infarction. Severe hypotension, secondary to cardiogenic shock. Atrial fibrillation. Lactic acidosis. Non-anion gap metabolic acidosis. Recent diagnosis of hypertension. History of chronic tobacco use. Plan: Plan dated January 06, 2024. The patient is seen in the intensive care unit. We placed a right radial art line. The patient is on amiodarone at 1 mg/min. In addition, the patient is receiving norepinephrine at 0.5 mcg/kg/min. I have asked the nurses to start vasopressin, to maintain a mean arterial pressure of 65 to 70 mmHg. The blood gas showed a pO2 of 76, pCO2 of 42, and a pH of 7.287. I have asked the nurses to give the patient 2 A of sodium bicarbonate. Labs, x-rays, medications are reviewed. The patient is overall prognosis remains very guarded given the fact that he has had such a prolonged period of resuscitation. In fact, the patient developed ventricular tachycardia, on the way to the ICU, and was cardioverted. We will continue to follow make recommendations. Time with Patient: Greater than 30
[2024-01-06 15:55] LABS: Basophils % (A) 0 %; Eosinophils # (A) 0.1 k/uL (0-0.7); Eosinophils % (A) 0 %; HCT 42.9 % (39.0-53.0); HGB 14.1 gm/dL (13.0-17.5); Lymphocytes # (A) 1.3 k/uL (1.0-4.8); Lymphocytes % (A) 6 %; MCH 29.7 pg (25.0-35.0); MCHC 32.9 g/dL (31.0-37.0); MCV 90.5 fL (80.0-100.0); Mean Platelet Volume 8.8; Monocytes # (A) 0.8 k/uL (0-1.0); Monocytes % (A) 4 %; Neutrophils # (A) 19.8 k/uL (1.3-7.7); Neutrophils % (A) 90 %; Platelet Count 208 k/uL (150-450); RBC 4.74 m/uL (4.30-5.90); RDW 14.3 % (11.5-15.5); WBC 22.1 k/uL (3.8-10.6)
[2024-01-06] MEDS: HEPARIN SOD,PORK IN 0.45% NACL 25,000 UNIT in 0.45% NACL 1 250ML.BAG IV SCH (15:56)
[2024-01-06] MEDS: SODIUM BICARB 8.4% 50 ML SYR (1 MEQ/ML) IV STA (15:57)
[2024-01-06] MEDS: INSULIN ASPART (NovoLOG) 100 UNIT/ML VIAL SQ SCH (15:59)
[2024-01-06 16:12] LABS: INR 1.3 (<1.2); Prothrombin Time 13.2 sec (10.0-12.5)
[2024-01-06] MEDS: VASOPRESSIN 60 UNIT in SODIUM CHLORIDE 0.9% 150 ML IV SCH (16:14)
[2024-01-06 16:15] LABS: African American GFR (CKD) 76 (>60 ml/min/1.73 sqM); Anion Gap 10 mmol/L; Blood Urea Nitrogen 18 mg/dL (9-20); Calcium 8.6 mg/dL (8.4-10.2); Carbon Dioxide 19 mmol/L (22-30); Chloride 111 mmol/L (98-107); Glucose 274 mg/dL (74-99); Non-African American GFR(CKD) 66 (>60 ml/min/1.73 sqM); Sodium 140 mmol/L (137-145)
[2024-01-06 16:21] LABS: Potassium 3.6 mmol/L (3.5-5.1)
[2024-01-06 16:22] LABS: Magnesium 3.2 mg/dL (1.6-2.3)
[2024-01-06 16:23] LABS: Partial Thromboplastin Time 185.7 sec (22.0-30.0)
--- NOTE | 2024-01-06 16:23 | XR ---
EXAMINATION TYPE: XR chest 1V portable DATE OF EXAM: 01/06/2024 COMPARISON: 01/06/2024 INDICATION: Line placement TECHNIQUE: Single frontal view of the chest is obtained. FINDINGS: The heart size is mildly prominent. The pulmonary vasculature is prominent. Upper lung dunlap are partially opacified. Correlate for pulmonary edema. Some focal increased infilt rates in the right infrahilar region. Atelectasis and pneumonia could be considered. Atypical pneumon ia could be considered. Endotracheal tube tip is 5.7 cm above the wendi. [place] catheter tip is in the region of the pain pulmonary artery. No pneumothorax is evident. A balloon pump appears to be present on the expected r egion of the ascending thoracic aorta near the level of the pulmonary arteries. Nasogastric tube ingram sverses the thorax with the tip in the abdomen. IMPRESSION: 1. Clinical correlation for worsening pulmonary edema bilateral upper lung dunlap. 2. Aortic pump in the mid ascending thoracic aorta. 3. Placement of a [place] catheter tip in the region of the main pulmonary artery. No pneumothorax.
[2024-01-06] MEDS: AMIODARONE 450 MG in DEXTROSE 5% IN WATER 250 ML IV SCH (17:12)
[2024-01-06 18:43] LABS: Partial Thromboplastin Time 82.9 sec (22.0-30.0)
[2024-01-06 20:41] LABS: Glucose,Whole Blood 185 mg/dL (70-110)
[2024-01-06] MEDS: ATORVASTATIN 40 MG TAB PO SCH (21:21)
[2024-01-06] MEDS: CHLORHEXIDINE GLUCONATE 15 ML CUP MUCOUS MEM SCH (21:22)
[2024-01-06] MEDS: LIDOCAINE-D5W PMX 2G/250ML 2,000 MG in DEXTROSE/WATER 1 250ML.BAG IV SCH (21:26)
--- NOTE | 2024-01-06 21:48 | OP ---
OPERATIVE REPORT DATE OF SERVICE : PROCEDURE PERFORMED: Right radial arterial line. PREOPERATIVE DIAGNOSIS: Hypotension, frequent blood draws. POSTOPERATIVE DIAGNOSIS: Hypotension, frequent blood draws. CO-SURGEON: Dr. Austin. There was informed consent and universal timeout. ARTERIAL LINE PLACEMENT: Indications: Hemodynamic monitoring. A time-out was completed verifying correct patient, procedure, site, positioning, and implant or special equipment if applicable. Lang's test was performed to ensure adequate perfusion. The patient's right wrist was prepped and draped in sterile fashion. 1% Lidocaine was used to anesthetize the area. An 18G [place] arterial line was introduced into the radial/femoral artery. The catheter was threaded over the guide wire and the needle was removed with appropriate pulsatile blood return. Blood loss was minimal. The catheter was then sutured in place to the skin and a sterile dressing applied. Perfusion to the extremity distal to the point of catheter insertion was checked and found to be adequate. There was good blood return and waveform. The patient tolerated the procedure well. The catheter was sutured in place. A sterile dressing was applied by the nurse. There was no immediate complication. The patient tolerated the procedure well. MMODL / IJN: [id number] /
[2024-01-06 22:54] LABS: African American GFR (CKD) 48 (>60 ml/min/1.73 sqM); Anion Gap 12 mmol/L; Blood Urea Nitrogen 20 mg/dL (9-20); Calcium 8.3 mg/dL (8.4-10.2); Carbon Dioxide 16 mmol/L (22-30); Chloride 112 mmol/L (98-107); Glucose 183 mg/dL (74-99); Non-African American GFR(CKD) 42 (>60 ml/min/1.73 sqM); Sodium 140 mmol/L (137-145)
[2024-01-06 23:13] LABS: Potassium 4.5 mmol/L (3.5-5.1)
[2024-01-06 23:46] LABS: HCT 41.6 % (39.0-53.0); HGB 13.4 gm/dL (13.0-17.5); MCH 28.7 pg (25.0-35.0); MCHC 32.1 g/dL (31.0-37.0); MCV 89.3 fL (80.0-100.0); Platelet Count 201 k/uL (150-450); RBC 4.66 m/uL (4.30-5.90); WBC 17.9 k/uL (3.8-10.6)
--- NOTE | 2024-01-07 00:40 | P.PRCINT ---
Percutaneous Coronary Int. - Percutaneous Coronary Intervention Percutaneous Coronary Intervention: PROCEDURES PERFORMED: Left heart catheterization, bilateral coronary angiography, ultrasound guided arterial access, Impella CP placement, left femoral angiogram, PCI proximal to mid LAD with a 5.0 x 18mm Xience ALIVIA, post dilated with a 5.5mm NC balloon, IVUS LAD, right heart catheterization INDICATION: Cardiogenic shock, acute coronary syndrome, cardiac arrest CONSENT:I have discussed the risks, benefits and alternative therapies for the above-mentioned procedure and for both sedation/analgesia as well as necessary blood product administration, if indicated, as they pertain to this patient. The patient has indicated understanding and acceptance of the risks and procedures discussed. PROCEDURE: After the risks, benefits and alternatives of the above mentioned procedure explained in detail with the patient, informed consent was obtained. Patient was taken to the catheterization lab and prepped and draped in usual fashion. Ultrasound guidance was used to assess for arterial access. 1% lidocaine was used to anesthetize the right left femoral artery. A 6-Telugu sheath was placed in the left femoral artery using modified Seldinger technique and ultrasound guidance. A 6FR pigtail catheter was inserted into the left ventricle and LVEDP/ cardiac power were consistent with cardiogenic shock and therefore decision made to place an Impella. 2 Percloses were deployed in the 10 and 2 O'clock positions. Heparin was given. The left femoral angiogram showed adequate anatomy for 14 Fr sheath placement. The Impella CP was placed in the LV over a 0.018 wire. The Impella was turned on with output of 3.2 L/min. Next a 6Fr sheath was placed using micropuncture through the 14 Fr sheath at the 12 O'Clock position. RCA angiography was performed with a 6Fr FR4 catheter. A 6Fr FL 4.0 catheter and a CLS 4.5 catheter were attempted to engage the left main however somewhat superior takeoff. A 6Fr FL 4.5 guide was used to engage the left main. The decision was made to perform PCI of the LAD. A 0.014 BMW wire was advanced into the distal LAD. Balloon angiography was performed of the proximal to mid LAD. IVUS showed reference vessel 5.5mm. A 5.0 x 18mm Xience ALIVIA was placed in the proximal to mid LAD. The stent was post dilated with a 5.5mm NC balloon. Repeat IVUS showed diffuse more proximal disease however good stent expansion and no dissection. Final angiograms were performed. Preintervention there was a 100% stenosis and LEOLA 0 flow and post intervention there was < 10% stenosis and LEOLA 3 flow. Patient did have some V fib which require cardioversion. A 6Fr sheath was placed in the right IJ under ultrasound guidance. Next a 6Fr Castine Nury catheter was placed in the RA, RV, PA, PCWP positions. Thermodilution was performed. Left femoral angiogram through the sheath showed adequate flow around the sheath and therefore 14 Fr sheath was sutured in place. Patient was transported back to the ICU on pressors and with Impella. Conscious Sedation: Patient was monitored under the direct supervision of myself for conscious sedation using Versed and fentanyl for a total duration of 60 minutes HEMODYNAMICS: Ao: 79/65 LV: 70/22, LVEDP 32 PCWP (with Implella): 32 PA: 37/23 RV: 36/11 RA: 17 Left femoral artery pulse ox (on FiO2 100%): 95% PA pulse ox (on FiO2 100%): 50% RA pulse ox (on FiO2 100%): 51% CO by DARIUS: 3.1 L/min CI by DARIUS: 1.7 L.min/m2 CO by thermodilution: 2.1 L/min CI by thermodilution: 1.2 L/min/m2 SELECTIVE CORONARY ARTERIOGRAPHY: LEFT MAIN: The left main is a large caliber vessel which gives off the LAD with an anamolous circumflex. There is 10-20% left main stenosis. LEFT ANTERIOR DESCENDING CORONARY ARTERY: LAD is a very large caliber vessel which wraps around to the apex. There is diffuse mild 20-30% proximal LAD stenosis followed by a proximal to mid 100% LAD stenosis. The LAD stops shortly after this area, only mainly giving off a small caliber diagonal 1 branch with what appears to be a TAX CLERK with right to left collaterals. ANAMOLOUS CIRCUMFLEX CORONARY ARTERY from the RCA: The circumflex is a small to moderate caliber vessel coming off the proximal RCA and has 50% proximal stenosis and a mid circumflex 100% stenosis with right to right collaterals. RIGHT CORONARY ARTERY: The right coronary artery is a large caliber vessel which gives off a PDA and PLV branch and is the dominant vessel. There is proximal RCA 50-60% stenosis and otherwise mild 10-20% stenosis. There are right to left collaterals to circumflex as well as to the apical LAD. FINAL IMPRESSION: 1. CAD as described above including 10-20% left main, 100% proximal to mid LAD, 50-60% RCA, 100% anamolous circumflex, 100% mid LAD 2. Cardiogenic shock 3. S/p Impella CP placement 4. S/p PCI proximal to mid LAD with a 5.0 x 18mm Xience ALIVIA, post dilated with a 5.5mm NC balloon 5. V fib throughout procedure 6. Likely TAX CLERK of mid LAD with flush occlusion and collaterals from the RCA. PLAN: 1. Aggressive risk factor modification per most recent ACC/AHA guidelines. 2. Continue dual antipaltelets with aspirin and Brillinta for 12 months 3. Monitor neuro status 4. Wean Impella as tolerated.
[2024-01-07] MEDS: PANTOPRAZOLE 40 MG/10 ML VIAL IVP ONE (00:53)
[2024-01-07 03:18] LABS: Partial Thromboplastin Time 76.9 sec (22.0-30.0)
[2024-01-07 03:23] LABS: ABG Base Excess -12.9 mmol/L; ABG HCO3 14 mmol/L (21-25); ABG Oxygen Saturation 98.8 % (94-97); ABG PCO2 29 mmHg (35-45); ABG PH 7.28 (7.35-7.45); ABG PO2 142 mmHg (83-108); ABG TCO2 15 mmol/L (19-24); Allen Test Performed? Yes
[2024-01-07 05:34] LABS: Basophils % (A) 0 %; Eosinophils % (A) 0 %; HCT 41.4 % (39.0-53.0); HGB 13.3 gm/dL (13.0-17.5); Lymphocytes # (A) 1.1 k/uL (1.0-4.8); Lymphocytes % (A) 7 %; MCH 29.2 pg (25.0-35.0); MCHC 32.2 g/dL (31.0-37.0); MCV 90.9 fL (80.0-100.0); Mean Platelet Volume 8.4; Monocytes # (A) 0.6 k/uL (0-1.0); Monocytes % (A) 4 %; Neutrophils # (A) 14.7 k/uL (1.3-7.7); Neutrophils % (A) 89 %; Platelet Count 176 k/uL (150-450); RBC 4.56 m/uL (4.30-5.90); RDW 14.2 % (11.5-15.5); WBC 16.6 k/uL (3.8-10.6)
[2024-01-07 06:06] LABS: ALT 423 U/L (4-49); African American GFR (CKD) 33 (>60 ml/min/1.73 sqM); Albumin 2.7 g/dL (3.5-5.0); Alkaline Phosphatase 50 U/L (38-126); Anion Gap 14 mmol/L; Blood Urea Nitrogen 23 mg/dL (9-20); Calcium 8.2 mg/dL (8.4-10.2); Carbon Dioxide 10 mmol/L (22-30); Chloride 114 mmol/L (98-107); Glucose 126 mg/dL (74-99); Non-African American GFR(CKD) 28 (>60 ml/min/1.73 sqM); Phosphorus 6.9 mg/dL (2.5-4.5); Sodium 138 mmol/L (137-145); Total Bilirubin 2.6 mg/dL (0.2-1.3); Total Protein 5.1 g/dL (6.3-8.2)
[2024-01-07 06:08] LABS: Potassium 5.4 mmol/L (3.5-5.1)
[2024-01-07 06:23] LABS: AST 1399 U/L (17-59); LDH 3106 U/L (120-246)
[2024-01-07] MEDS: EPINEPHrine 4 MG in DEXTROSE 5% IN WATER 250 ML IV SCH (06:25)
[2024-01-07] MEDS: SODIUM BICARB 8.4% 50 ML SYR (1 MEQ/ML) IV STA (06:27)
[2024-01-07 06:35] LABS: Glucose,Whole Blood 126 mg/dL (70-110)
[2024-01-07] MEDS: INSULIN ASPART (NovoLOG) 100 UNIT/ML VIAL SQ SCH (06:37)
[2024-01-07] MEDS: DEXTROSE 5% IN WATER 1,000 ML with SODIUM BICARB (1 MEQ/ML) 150 ML IV SCH (06:47)
[2024-01-07 07:13] LABS: Partial Thromboplastin Time 114.1 sec (22.0-30.0)
--- NOTE | 2024-01-07 07:28 | XR ---
EXAMINATION TYPE: XR chest 1V portable DATE OF EXAM: 01/07/2024 COMPARISON: 01/06/2024 HISTORY: SOB, Follow Up FINDINGS: Indwelling tubes and catheters are unchanged. LVAD device is unchanged in position. No change in perihilar opacities. Stable appearance of the cardio-mediastinal structures at this time. IMPRESSION: 1. Stable portable chest. Clinical correlation and follow up until resolution is recommended.
[2024-01-07 08:14] LABS: African American GFR (CKD) 31 (>60 ml/min/1.73 sqM); Non-African American GFR(CKD) 27 (>60 ml/min/1.73 sqM)
[2024-01-07] MEDS: PANTOPRAZOLE 40 MG/10 ML VIAL IVP SCH (08:45)
[2024-01-07 10:41] LABS: ABG Base Excess -11.2 mmol/L; ABG HCO3 17 mmol/L (21-25); ABG Oxygen Saturation 96.5 % (94-97); ABG PCO2 40 mmHg (35-45); ABG PH 7.22 (7.35-7.45); ABG PO2 99 mmHg (83-108); ABG TCO2 18 mmol/L (19-24)
[2024-01-07 10:43] LABS: Allen Test Performed? no
[2024-01-07] MEDS: TICAGRELOR 90 MG TAB PO SCH (10:55)
[2024-01-07] MEDS: ASPIRIN 81 MG PO SCH (10:56)
--- NOTE | 2024-01-07 11:46 | P.PN ---
Subjective Progress Note Date: 01/07/24 Principal diagnosis: Cardiogenic shock. Pulmonary consult dated January 06, 2024. 63-year-old male who had a [id number] cardiac arrest. The patient apparently had not been complaining of anything before the arrest. He apparently was down in the basement doing laundry, when the family heard him collapse. He apparently was unresponsive without pulses. CPR was initiated by the family, and when the paramedics arrived, he apparently was defibrillated 5 times, and, was intubated at the scene. In the route, he lost pulses again, and apparently was in PEA. He apparently was resuscitated according to ACLS guidelines. The patient was further resuscitated in the emergency department, and apparently lost his pulse numerous times, with continuation of CPR. The patient is seen in the intensive care unit. He apparently was here in the hospital, in mid November, brought in because he was not feeling well, diagnosed with hypertension, and sent home on a pill for hypertension. I believe he was on both Flomax, and lisinopril. The patient apparently has not seen a doctor in many years. He apparently was a tobacco user. The patient is seen in the intensive care unit. He is currently vented. Ventilator settings include volume assist-control, rate 16, tidal volume 450, FiO2 100%, PEEP of 8. The patient is on amiodarone at 1 mg/min, and norepinephrine at 0.5 mcg/kg/min. We placed a right radial art line. The patient ended up going to the catheterization laboratory, was found to have a 100% LAD lesion, was stented, and an Impella device was placed. Brain CT showed nothing acute. Chest x-ray showed an endotracheal tube about 3 cm above the tracheal wendi. CTA was negative for pulmonary embolism, but did show some groundglass changes, potentially consistent with pneumonia or fluid overload. Repeat chest x-ray shows primarily upper lobe airspace disease. Laboratory data includes a white count 10.2, hemoglobin 14.1, hematocrit 45.5, and a platelet count of 164,000. Sodium 140, potassium 4.1, chlorides 111, CO2 17, anion gap 12, BUN 14, and creatinine 1.03. Lactic acid 7.9. Calcium 8. Troponin 0.086. Albumin is 3. Glucose is 283. Progress note dated January 07, 2024. 63-year-old male, with an [id number] cardiac arrest, prolonged downtime, and prolonged cardiopulmonary resuscitation. The patient is currently seen in the intensive care unit. He remains on the ventilator. Settings include volume assist-control, rate 16, tidal volume 450, FiO2 100%, to be reduced to 90%, and PEEP of 8. Blood gases on 100% show pO2 142, pCO2 29, pH is 7.28. The patient is on propofol at 30 mcg/kg/min, norepinephrine at 35 mcg/min, lidocaine at 2 mcg/min, vasopressin at 0.03 units/min, amiodarone 0.5 mg/min, epinephrine drip at 0.03 mcg/kg/min, D5W with 3 ampoules of sodium bicarb at 100 cc an hour. In addition, the patient is on a heparin drip via weight-based protocol. Laboratory data includes a white count 16.6, hemoglobin 13.3, hematocrit 41.4, and a platelet count of 176,000. Repeat blood gases show pO2 of 99, pCO2 of 40, pH is 7.22. Sodium 138, potassium 4.3, chlorides 114, CO2 10, anion gap 14, BUN 23, creatinine 2.47. Calcium 8.2, magnesium 3.0. AST is 1399. ALT 423. Albumin is 2.7. LDH is 3106. Chest x-ray is relatively stable. Objective - Vital Signs Vital signs: Vital Signs Temp 98.2 F 01/07/24 08:00 Pulse 65 01/07/24 11:00 Resp 17 01/07/24 11:00 BP 92/76 01/06/24 21:15 Pulse Ox 96 01/06/24 22:15 FiO2 90 01/07/24 11:25 Intake & Output 01/06/24 01/07/24 01/07/24 18:59 06:59 18:59 Intake Total 892.943 0590.989 806.234 Output Total 15 451 15 Balance 309.572 6652.989 791.234 Weight 73.7 kg Intake: IV 750 1142 444 CO/CI 110 20 Dextrose 5% in Water 1, 400 000 ml @ 100 mls/hr IV . [id number] [facility] with Sodium Bicarb (1 Meq/ml) 150 ml Rx#:[id number] Pressure Bag 132 24 Sodium Chloride 0.9% 1, 300 900 000 ml @ 75 mls/hr IV . [id number] [facility] Rx#:[id number] Intake, IV Titration 77.674 451.989 362.234 Amount Amiodarone 450 mg In 223.338 Dextrose 5% in Water 250 ml @ 0.5 MG/MIN 16.667 mls/hr IV .Q15H [facility] Rx#: [id number] Heparin Sod,Pork in 0.45% 25.795 93.231 NaCl 25,000 unit In 0.45 % NaCl 1 250ml.bag @ 12 UNITS/KG/HR 8.844 mls/hr IV .Q24H [facility] Rx#: [id number] Lidocaine-D5w Pmx 2G/ 192.25 250Ml 2,000 mg In Dextrose/Water 1 250ml. bag @ 2 MG/MIN 15 mls/hr IV .[id number] [facility] Rx#: [id number] Norepinephrine 32 mg In 43.005 126.944 3.348 Sodium Chloride 0.9% 218 ml @ 0.03 MCG/KG/MIN 1.23 mls/hr IV .Q24H [facility] Rx#: [id number] Vasopressin 60 unit In 8.874 0 Sodium Chloride 0.9% 150 ml @ 0.03 UNITS/MIN 4.59 mls/hr IV .Q24H [facility] Rx#: [id number] propofoL 1,000 mg In 101.707 73.405 Empty Bag 1 bag @ 15 MCG/ KG/MIN 6.633 mls/hr IV . [id number] [facility] Rx#:[id number] Output: Gastric Drainage 400 Urine 15 51 15 Other: Voiding Method Indwelling Catheter Indwelling Catheter Indwelling Catheter ABP, PAP, CO, CI - Last Documented Arterial Blood Pressure 118/84 Pulmonary Artery Pressure 44/29 Cardiac Output 2 Cardiac Index 1.1 - Exam No acute distress, sedated, with an orally placed endotracheal tube. HEENT examination is grossly unremarkable. Neck supple. Full range of motion. No adenopathy thyromegaly or neck vein distention. Cardiovascular examination reveals regular rhythm rate. S1-S2 normal. No S3 or S4. No discernible murmur noted. Heart rate 71 bpm. Heart sounds distant. Lungs reveal coarse rhonchi. Breath sounds equal. No wheezes. Few scattered crackles. Breath sounds equal. Saturations are 93%. Abdomen soft without bowel sounds. No masses or tenderness. Extremities are intact. No cyanosis clubbing or edema. Skin is without rash or lesion. Neurologic examination cannot be assessed. - Labs CBC & Chem 7: 01/07/24 05:15 01/07/24 10:17 Labs: Abnormal Lab Results - Last 24 Hours (Table) 01/05/24 01/06/24 01/06/24 Range/Units 23:25 11:35 11:35 WBC (3.8-10.6) k/uL Neutrophils # (1.3-7.7) k/uL PT (10.0-12.5) sec INR (<1.2) APTT (22.0-30.0) sec ABG pH (7.35-7.45) ABG pCO2 (35-45) mmHg ABG pO2 (83-108) mmHg ABG HCO3 (21-25) mmol/L ABG Total CO2 (19-24) mmol/L ABG O2 Saturation (94-97) % ABG Lactic Acid 8.3 H* (0.5-1.6) mmol/L Potassium (3.5-5.1) mmol/L Chloride 111 H (98-107) mmol/L Carbon Dioxide 17 L (22-30) mmol/L BUN (9-20) mg/dL Creatinine (0.66-1.25) mg/dL Glucose 265 H (74-99) mg/dL POC Glucose (mg/dL) (70-110) mg/dL Plasma Lactic Acid Alexander (0.7-2.0) mmol/L Calcium 8.0 L (8.4-10.2) mg/dL Phosphorus (2.5-4.5) mg/dL Magnesium (1.6-2.3) mg/dL Total Bilirubin (0.2-1.3) mg/dL AST (17-59) U/L ALT (4-49) U/L Lactate Dehydrogenase (120-246) U/L Troponin I 0.086 H* (0.000-0.034) ng/mL Total Protein 5.6 L (6.3-8.2) g/dL Albumin 3.0 L (3.5-5.0) g/dL 01/06/24 01/06/24 01/06/24 Range/Units 11:35 15:30 15:30 WBC 22.1 H (3.8-10.6) k/uL Neutrophils # 19.8 H (1.3-7.7) k/uL PT (10.0-12.5) sec INR (<1.2) APTT (22.0-30.0) sec ABG pH (7.35-7.45) ABG pCO2 (35-45) mmHg ABG pO2 (83-108) mmHg ABG HCO3 (21-25) mmol/L ABG Total CO2 (19-24) mmol/L ABG O2 Saturation (94-97) % ABG Lactic Acid (0.5-1.6) mmol/L Potassium (3.5-5.1) mmol/L Chloride (98-107) mmol/L Carbon Dioxide (22-30) mmol/L BUN (9-20) mg/dL Creatinine (0.66-1.25) mg/dL Glucose (74-99) mg/dL POC Glucose (mg/dL) (70-110) mg/dL Plasma Lactic Acid Alexander 7.9 H* 5.0 H* (0.7-2.0) mmol/L Calcium (8.4-10.2) mg/dL Phosphorus (2.5-4.5) mg/dL Magnesium (1.6-2.3) mg/dL Total Bilirubin (0.2-1.3) mg/dL AST (17-59) U/L ALT (4-49) U/L Lactate Dehydrogenase (120-246) U/L Troponin I (0.000-0.034) ng/mL Total Protein (6.3-8.2) g/dL Albumin (3.5-5.0) g/dL 01/06/24 01/06/24 01/06/24 Range/Units 15:30 15:30 15:39 WBC (3.8-10.6) k/uL Neutrophils # (1.3-7.7) k/uL PT 13.2 H (10.0-12.5) sec INR 1.3 H (<1.2) APTT 185.7 H* (22.0-30.0) sec ABG pH (7.35-7.45) ABG pCO2 (35-45) mmHg ABG pO2 (83-108) mmHg ABG HCO3 (21-25) mmol/L ABG Total CO2 (19-24) mmol/L ABG O2 Saturation (94-97) % ABG Lactic Acid (0.5-1.6) mmol/L Potassium (3.5-5.1) mmol/L Chloride 111 H (98-107) mmol/L Carbon Dioxide 19 L (22-30) mmol/L BUN (9-20) mg/dL Creatinine (0.66-1.25) mg/dL Glucose 274 H (74-99) mg/dL POC Glucose (mg/dL) 283 H (70-110) mg/dL Plasma Lactic Acid Alexander (0.7-2.0) mmol/L Calcium (8.4-10.2) mg/dL Phosphorus (2.5-4.5) mg/dL Magnesium 3.2 H (1.6-2.3) mg/dL Total Bilirubin (0.2-1.3) mg/dL AST (17-59) U/L ALT (4-49) U/L Lactate Dehydrogenase (120-246) U/L Troponin I (0.000-0.034) ng/mL Total Protein (6.3-8.2) g/dL Albumin (3.5-5.0) g/dL 01/06/24 01/06/24 01/06/24 Range/Units 15:41 18:25 18:25 WBC (3.8-10.6) k/uL Neutrophils # (1.3-7.7) k/uL PT (10.0-12.5) sec INR (<1.2) APTT 82.9 H (22.0-30.0) sec ABG pH 7.29 L (7.35-7.45) ABG pCO2 (35-45) mmHg ABG pO2 76 L (83-108) mmHg ABG HCO3 20 L (21-25) mmol/L ABG Total CO2 (19-24) mmol/L ABG O2 Saturation (94-97) % ABG Lactic Acid (0.5-1.6) mmol/L Potassium (3.5-5.1) mmol/L Chloride (98-107) mmol/L Carbon Dioxide (22-30) mmol/L BUN (9-20) mg/dL Creatinine (0.66-1.25) mg/dL Glucose (74-99) mg/dL POC Glucose (mg/dL) (70-110) mg/dL Plasma Lactic Acid Alexander (0.7-2.0) mmol/L Calcium (8.4-10.2) mg/dL Phosphorus (2.5-4.5) mg/dL Magnesium (1.6-2.3) mg/dL Total Bilirubin (0.2-1.3) mg/dL AST (17-59) U/L ALT (4-49) U/L Lactate Dehydrogenase 1786 H (120-246) U/L Troponin I (0.000-0.034) ng/mL Total Protein (6.3-8.2) g/dL Albumin (3.5-5.0) g/dL 01/06/24 01/06/24 01/06/24 Range/Units 19:54 20:40 22:15 WBC (3.8-10.6) k/uL Neutrophils # (1.3-7.7) k/uL PT (10.0-12.5) sec INR (<1.2) APTT (22.0-30.0) sec ABG pH (7.35-7.45) ABG pCO2 (35-45) mmHg ABG pO2 (83-108) mmHg ABG HCO3 (21-25) mmol/L ABG Total CO2 (19-24) mmol/L ABG O2 Saturation (94-97) % ABG Lactic Acid (0.5-1.6) mmol/L Potassium (3.5-5.1) mmol/L Chloride 112 H (98-107) mmol/L Carbon Dioxide 16 L (22-30) mmol/L BUN (9-20) mg/dL Creatinine 1.73 H (0.66-1.25) mg/dL Glucose 183 H (74-99) mg/dL POC Glucose (mg/dL) 185 H (70-110) mg/dL Plasma Lactic Acid Alexander 6.9 H* (0.7-2.0) mmol/L Calcium 8.3 L (8.4-10.2) mg/dL Phosphorus (2.5-4.5) mg/dL Magnesium 3.0 H (1.6-2.3) mg/dL Total Bilirubin (0.2-1.3) mg/dL AST (17-59) U/L ALT (4-49) U/L Lactate Dehydrogenase (120-246) U/L Troponin I (0.000-0.034) ng/mL Total Protein (6.3-8.2) g/dL Albumin (3.5-5.0) g/dL 01/06/24 01/06/24 01/06/24 Range/Units 22:15 23:00 23:25 WBC 17.9 H (3.8-10.6) k/uL Neutrophils # (1.3-7.7) k/uL PT (10.0-12.5) sec INR (<1.2) APTT 70.9 H (22.0-30.0) sec ABG pH (7.35-7.45) ABG pCO2 (35-45) mmHg ABG pO2 (83-108) mmHg ABG HCO3 (21-25) mmol/L ABG Total CO2 (19-24) mmol/L ABG O2 Saturation (94-97) % ABG Lactic Acid (0.5-1.6) mmol/L Potassium (3.5-5.1) mmol/L Chloride (98-107) mmol/L Carbon Dioxide (22-30) mmol/L BUN (9-20) mg/dL Creatinine (0.66-1.25) mg/dL Glucose (74-99) mg/dL POC Glucose (mg/dL) (70-110) mg/dL Plasma Lactic Acid Alexander (0.7-2.0) mmol/L Calcium (8.4-10.2) mg/dL Phosphorus (2.5-4.5) mg/dL Magnesium (1.6-2.3) mg/dL Total Bilirubin (0.2-1.3) mg/dL AST (17-59) U/L ALT (4-49) U/L Lactate Dehydrogenase 2166 H (120-246) U/L Troponin I (0.000-0.034) ng/mL Total Protein (6.3-8.2) g/dL Albumin (3.5-5.0) g/dL 01/07/24 01/07/24 01/07/24 Range/Units 02:25 02:25 03:22 WBC (3.8-10.6) k/uL Neutrophils # (1.3-7.7) k/uL PT (10.0-12.5) sec INR (<1.2) APTT 76.9 H (22.0-30.0) sec ABG pH 7.28 L (7.35-7.45) ABG pCO2 29 L (35-45) mmHg ABG pO2 142 H (83-108) mmHg ABG HCO3 14 L (21-25) mmol/L ABG Total CO2 15 L (19-24) mmol/L ABG O2 Saturation 98.8 H (94-97) % ABG Lactic Acid (0.5-1.6) mmol/L Potassium (3.5-5.1) mmol/L Chloride (98-107) mmol/L Carbon Dioxide (22-30) mmol/L BUN (9-20) mg/dL Creatinine (0.66-1.25) mg/dL Glucose (74-99) mg/dL POC Glucose (mg/dL) (70-110) mg/dL Plasma Lactic Acid Alexander (0.7-2.0) mmol/L Calcium (8.4-10.2) mg/dL Phosphorus (2.5-4.5) mg/dL Magnesium (1.6-2.3) mg/dL Total Bilirubin (0.2-1.3) mg/dL AST (17-59) U/L ALT (4-49) U/L Lactate Dehydrogenase 2473 H (120-246) U/L Troponin I (0.000-0.034) ng/mL Total Protein (6.3-8.2) g/dL Albumin (3.5-5.0) g/dL 01/07/24 01/07/24 01/07/24 Range/Units 04:00 05:15 05:15 WBC 16.6 H (3.8-10.6) k/uL Neutrophils # 14.7 H (1.3-7.7) k/uL PT (10.0-12.5) sec INR (<1.2) APTT (22.0-30.0) sec ABG pH (7.35-7.45) ABG pCO2 (35-45) mmHg ABG pO2 (83-108) mmHg ABG HCO3 (21-25) mmol/L ABG Total CO2 (19-24) mmol/L ABG O2 Saturation (94-97) % ABG Lactic Acid 10.1 H* (0.5-1.6) mmol/L Potassium 5.4 H (3.5-5.1) mmol/L Chloride 114 H (98-107) mmol/L Carbon Dioxide 10 L (22-30) mmol/L BUN 23 H (9-20) mg/dL Creatinine 2.38 H (0.66-1.25) mg/dL Glucose 126 H (74-99) mg/dL POC Glucose (mg/dL) (70-110) mg/dL Plasma Lactic Acid Alexander (0.7-2.0) mmol/L Calcium 8.2 L (8.4-10.2) mg/dL Phosphorus 6.9 H (2.5-4.5) mg/dL Magnesium 3.0 H (1.6-2.3) mg/dL Total Bilirubin 2.6 H (0.2-1.3) mg/dL AST 1399 H (17-59) U/L ALT 423 H (4-49) U/L Lactate Dehydrogenase 3106 H (120-246) U/L Troponin I (0.000-0.034) ng/mL Total Protein 5.1 L (6.3-8.2) g/dL Albumin 2.7 L (3.5-5.0) g/dL 01/07/24 01/07/24 01/07/24 Range/Units 06:30 06:30 06:34 WBC (3.8-10.6) k/uL Neutrophils # (1.3-7.7) k/uL PT (10.0-12.5) sec INR (<1.2) APTT 114.1 H* (22.0-30.0) sec ABG pH (7.35-7.45) ABG pCO2 (35-45) mmHg ABG pO2 (83-108) mmHg ABG HCO3 (21-25) mmol/L ABG Total CO2 (19-24) mmol/L ABG O2 Saturation (94-97) % ABG Lactic Acid (0.5-1.6) mmol/L Potassium (3.5-5.1) mmol/L Chloride (98-107) mmol/L Carbon Dioxide (22-30) mmol/L BUN (9-20) mg/dL Creatinine 2.47 H (0.66-1.25) mg/dL Glucose (74-99) mg/dL POC Glucose (mg/dL) 126 H (70-110) mg/dL Plasma Lactic Acid Alexander (0.7-2.0) mmol/L Calcium (8.4-10.2) mg/dL Phosphorus (2.5-4.5) mg/dL Magnesium (1.6-2.3) mg/dL Total Bilirubin (0.2-1.3) mg/dL AST (17-59) U/L ALT (4-49) U/L Lactate Dehydrogenase (120-246) U/L Troponin I (0.000-0.034) ng/mL Total Protein (6.3-8.2) g/dL Albumin (3.5-5.0) g/dL 01/07/24 Range/Units 10:40 WBC (3.8-10.6) k/uL Neutrophils # (1.3-7.7) k/uL PT (10.0-12.5) sec INR (<1.2) APTT (22.0-30.0) sec ABG pH 7.22 L (7.35-7.45) ABG pCO2 (35-45) mmHg ABG pO2 (83-108) mmHg ABG HCO3 17 L (21-25) mmol/L ABG Total CO2 18 L (19-24) mmol/L ABG O2 Saturation (94-97) % ABG Lactic Acid (0.5-1.6) mmol/L Potassium (3.5-5.1) mmol/L Chloride (98-107) mmol/L Carbon Dioxide (22-30) mmol/L BUN (9-20) mg/dL Creatinine (0.66-1.25) mg/dL Glucose (74-99) mg/dL POC Glucose (mg/dL) (70-110) mg/dL Plasma Lactic Acid Alexander (0.7-2.0) mmol/L Calcium (8.4-10.2) mg/dL Phosphorus (2.5-4.5) mg/dL Magnesium (1.6-2.3) mg/dL Total Bilirubin (0.2-1.3) mg/dL AST (17-59) U/L ALT (4-49) U/L Lactate Dehydrogenase (120-246) U/L Troponin I (0.000-0.034) ng/mL Total Protein (6.3-8.2) g/dL Albumin (3.5-5.0) g/dL Assessment and Plan Assessment: S/P out of hospital cardiopulmonary arrest, with prolonged resuscitation, and eventual return of spontaneous circulation. Suspected significant cerebral anoxia with anoxic encephalopathy. S/P intubation, and mechanical ventilation, secondary to cardiopulmonary arrest. 100% LAD lesion, with stenting, and placement of an Impella device. Non-ST segment elevation myocardial infarction. Severe hypotension, secondary to cardiogenic shock. Atrial fibrillation. Lactic acidosis. Non-anion gap metabolic acidosis. Recent diagnosis of hypertension. History of chronic tobacco use. Plan: Plan dated January 06, 2024. The patient is seen in the intensive care unit. We placed a right radial art line. The patient is on amiodarone at 1 mg/min. In addition, the patient is receiving norepinephrine at 0.5 mcg/kg/min. I have asked the nurses to start vasopressin, to maintain a mean arterial pressure of 65 to 70 mmHg. The blood gas showed a pO2 of 76, pCO2 of 42, and a pH of 7.287. I have asked the nurses to give the patient 2 A of sodium bicarbonate. Labs, x-rays, medications are reviewed. The patient is overall prognosis remains very guarded given the fact that he has had such a prolonged period of resuscitation. In fact, the patient developed ventricular tachycardia, on the way to the ICU, and was cardioverted. We will continue to follow make recommendations. Plan dated January 07, 2024. The patient's overall prognosis remains extremely poor. His blood gases show pO2 142, pCO2 29, pH is 7.28. The FiO2 was reduced down to 90%. He remains on multiple drips including propofol, norepinephrine, lidocaine, vasopressin, amiodarone, epinephrine, and sodium bicarbonate drip. He is also receiving IV heparin. Labs, x-rays, and medications are all reviewed. We will continue to follow make recommendations along the way. The patient is now a DO NOT RESUSCITATE patient which is very appropriate. We will continue to follow. Time with Patient: Greater than 30
[2024-01-07 11:50] LABS: Glucose,Whole Blood 171 mg/dL (70-110)
--- NOTE | 2024-01-07 12:40 | CA ---
Transthoracic Echo Report Name: Josiah Panda Age: 63 Gender: M : 1960 Exam Date: 01/07/2024 09:02 Exam Location: [facility] Ht (in): 66 Wt (lb): 154 Ordering Physician: Stuart June DO ([email or web address]) Attending/Referring Phys: Tub Operator Alejandra Lozano, TIM Procedure CPT: Indications: impella Cardiac Hx: Impella Technical Quality: Good Contrast 1: Total Dose (mL): Contrast 2: Total Dose (mL): MEASUREMENTS (Male / Female) Normal Values 2D ECHO LA Volume 45.5 cm??? 18 - 58 / 22 - 52 cm??? LA Volume Index 25.1 cm???/m??? 16 - 28 cm???/m??? DOPPLER AI Peak Velocity 316.8 cm/s AI Peak Gradient 40.1 mmHg AI Pressure Half Time 946.1 ms TR Peak Velocity 250.0 cm/s TR Peak Gradient 25.0 mmHg Right Ventricular Systolic Press 40.0 mmHg FINDINGS Left Ventricle Left ventricular ejection fraction is estimated at 15-20 %. Impella cathater in LVOT tract. Severely reduced global left ventricular systolic function. Right Ventricle Mild pulmonary hypertension. Right Atrium Left Atrium Normal left atrial size. Mitral Valve Structurally normal mitral valve. Mild mitral regurgitation. Aortic Valve Mild aortic regurgitation. Tricuspid Valve Structurally normal tricuspid valve. Mild tricuspid regurgitation. Pulmonic Valve Pericardium No pericardial effusion. Aorta CONCLUSIONS Severe LV dysfunction No pericardial effusion Previewed by: Dr. Bar Sharp MD (Electronically Signed) Final Date: 07 January 2024 12:39
--- NOTE | 2024-01-07 12:42 | CA ---
Transthoracic Echo Report Name: Josiah Panda Age: 63 Gender: M : 1960 Exam Date: 01/06/2024 15:41 Exam Location: [facility] Ht (in): 66 Wt (lb): 162 Ordering Physician: Stuart June DO ([email or web address]) Attending/Referring Phys: Bicycle Mechanic Alejandra Lozano RDCS Procedure CPT: Indications: Placement of Left Ventricular Assist Device Cardiac Hx: Technical Quality: Good Contrast 1: Total Dose (mL): Contrast 2: Total Dose (mL): MEASUREMENTS (Male / Female) Normal Values 2D ECHO LV Diastolic Volume MOD BP 84.1 cm??? 67 - 155 / 56 - 104 cm??? LV Systolic Volume MOD BP 68.0 cm??? 22 - 58 / 19 - 49 cm??? LV Ejection Fraction MOD BP 19.2 % >= 55 % LV Cardiac Index MOD BP 743.7 cm???/min???m??? LV Diastolic Volume MOD 4C 86.0 cm??? LV Systolic Volume MOD 4C 71.2 cm??? LV Ejection Fraction MOD 4C 17.2 % LV Cardiac Index MOD 4C 683.9 cm???/min???m??? LV Diastolic Length 4C 8.1 cm LV Systolic Length 4C 7.6 cm LV Diastolic Volume MOD 2C 77.7 cm??? LV Systolic Volume MOD 2C 63.0 cm??? LV Ejection Fraction MOD 2C 18.9 % LV Cardiac Index MOD 2C 678.0 cm???/min???m??? LV Diastolic Length 2C 7.3 cm LV Systolic Length 2C 7.9 cm DOPPLER TR Peak Velocity 253.4 cm/s TR Peak Gradient 25.7 mmHg Right Ventricular Systolic Press 40.2 mmHg FINDINGS Left Ventricle Left ventricular ejection fraction is estimated at 15-20 %. LVAD device in place in LVOT tract. Severely reduced global left ventricular systolic function. Global left ventricular hypokinesis. Right Ventricle Mild pulmonary hypertension. Right Atrium Normal right atrial size. Left Atrium Mitral Valve Structurally normal mitral valve. Mild mitral regurgitation. Aortic Valve Trileaflet aortic valve. Mild aortic regurgitation. Tricuspid Valve Structurally normal tricuspid valve. Mild tricuspid regurgitation. Pulmonic Valve Structurally normal pulmonic valve. Trace pulmonic regurgitation. Pericardium No pericardial effusion. Aorta CONCLUSIONS Severe LV dysfunction No pericardial effusion Previewed by: Dr. Bar Sharp MD (Electronically Signed) Final Date: 07 January 2024 12:42
[2024-01-07 15:17] LABS: HCT 39.1 % (39.0-53.0); HGB 12.6 gm/dL (13.0-17.5); MCH 28.9 pg (25.0-35.0); MCHC 32.2 g/dL (31.0-37.0); MCV 89.8 fL (80.0-100.0); Mean Platelet Volume 8.8; Platelet Count 170 k/uL (150-450); RBC 4.35 m/uL (4.30-5.90); RDW 14.6 % (11.5-15.5); WBC 20.7 k/uL (3.8-10.6)
[2024-01-07] MEDS: NOREPINEPHRINE 32 MG in SODIUM CHLORIDE 0.9% 218 ML IV SCH (15:30)
[2024-01-07 16:01] LABS: Partial Thromboplastin Time 31.8 sec (22.0-30.0)
--- NOTE | 2024-01-07 16:05 | P.PN ---
Subjective HISTORY OF PRESENTING ILLNESS This is a pleasant 63-year-old who presents secondary to cardiac arrest. Patient apparently had been doing fine and had gone down to the basement and then the followed him a few minutes later and found him collapsed unresponsive on the floor.patient currently unresponsive and not available to provide more history. Patient then had prolonged cardiac arrest with initial shockable rhythm ventricular fibrillation per EMS/E ER report. Patient had prolonged CPR however good quality with mechanical CPR. Patient has had PEA and eventually had ROSC however is being maintained on norepinephrine with blood p ressures in the 70s over 40s. patient with 3 mm pupils responsive to light and apparently had been breathing over the ventilator. EKG showsloss of P waves, what appears to be A. fib with widening QRS and mild ST elevation in V1 and V2. he did receive Versed for sedation. 01/06 patient seen and examined. Patient underwent left heart catheterization 01/05 with finding of proximal to mid LAD 100% stenosis and underwent PCI of LAD with additional Impella CP placement from a left femoral approach. He had 2 episodes of V. fib requiring cardioversion and second time cardioverted back into sinus r hythm. He was switched from amiodarone to lidocaine given continued frequent ectopy. He has had varying degrees of blood pressures and has more recently required up titration of vasopressors. At approximate 7 AM he lost pulsatility and was started on epinephrine drip. Additionally he was started on norepinephrine and vasopressin. His blood pressures significantly elevated currently with a map in the 90s. We discussed the goal of 65. His lactic acid is also increased up to 11, has become more acidotic and is currently on a bicarbonate drip at 100. He has had issues with hemolysis and initially was decreased on the P7 overnight however became more hypotensive and therefore this was increased up to P8, P9. He has continued to have issues with hemolysis however able to let run blood work. he is currently intubated and sedated however not making any purposeful movements. PHYSICAL EXAMINATION Vital signs reviewed. CONSTITUTIONAL: ill-appearing, intubated HEENT: Head is normocephalic. Pupils are equal, round. Sclerae anicteric. Mucous membranes of the mouth are moist. No JVD. No carotid bruit. CHEST EXAMINATION: Lungs are clear to auscultation. No chest wall tenderness is noted on palpation or with deep breathing. HEART EXAMINATION: IRRegular rate and rhythm. S1, S2 heard. No murmurs, gallops or rub. ABDOMEN: Soft, nontender. Positive bowel sounds. EXTREMITIES: trace peripheral pulses, no lower extremity edema and no calf tenderness. NEUROLOGIC EXAMINATION: Patient is intubated and sedated ASSESSMENT cardiac arrest Non-STEMI Lactic acidosis Altered mental status, rule out hypoxic encephalopathy A. fib cardiogenic shock CAD status post PCI of LAD Acute kidney injury PLAN Echo showing severe decreased EF and right heart catheterization consistent with cardiogenic shock. Discussed with ICU and we will decrease vasopressors with goal map 65. Continue with heparin drip. He is hemolyzing and we will decrease down to P8. Patient unfortunately has been having multiorgan failure and additionally unclear what his neurologic recovery will be. Continue with cur rent supportive care however prognosis appears very poor. DO NOT RESUSCITATE is appropriate as if he suffers another cardiac arrest likely meaningful recovery will be unlikely. Objective - Vital Signs Vital signs: Vital Signs Temp 98.4 F 01/07/24 12:00 Pulse 71 01/07/24 15:30 Resp 18 01/07/24 15:30 BP 92/76 01/06/24 21:15 Pulse Ox 96 01/06/24 22:15 FiO2 90 01/07/24 15:12 Intake & Output 01/06/24 01/07/24 01/07/24 18:59 06:59 18:59 Intake Total 443.090 5810.989 1360.937 Output Total 15 451 30 Balance 457.112 9722.989 1330.937 Weight 73.7 kg Intake: IV 750 1142 922 CO/CI 110 50 Dextrose 5% in Water 1, 800 000 ml @ 100 mls/hr IV . [id number] [facility] with Sodium Bicarb (1 Meq/ml) 150 ml Rx#:[id number] Pressure Bag 132 72 Sodium Chloride 0.9% 1, 300 900 000 ml @ 75 mls/hr IV . [id number] [facility] Rx#:[id number] Intake, IV Titration 77.674 451.989 438.937 Amount Amiodarone 450 mg In 223.338 Dextrose 5% in Water 250 ml @ 0.5 MG/MIN 16.667 mls/hr IV .Q15H [facility] Rx#: [id number] Heparin Sod,Pork in 0.45% 25.795 93.231 NaCl 25,000 unit In 0.45 % NaCl 1 250ml.bag @ 12 UNITS/KG/HR 8.844 mls/hr IV .Q24H [facility] Rx#: [id number] Lidocaine-D5w Pmx 2G/ 192.25 250Ml 2,000 mg In Dextrose/Water 1 250ml. bag @ 2 MG/MIN 15 mls/hr IV .[id number] [facility] Rx#: [id number] Norepinephrine 32 mg In 43.005 126.944 80.051 Sodium Chloride 0.9% 218 ml @ 0.03 MCG/KG/MIN 1.23 mls/hr IV .Q24H [facility] Rx#: [id number] Vasopressin 60 unit In 8.874 0 Sodium Chloride 0.9% 150 ml @ 0.03 UNITS/MIN 4.59 mls/hr IV .Q24H [facility] Rx#: [id number] propofoL 1,000 mg In 101.707 73.405 Empty Bag 1 bag @ 15 MCG/ KG/MIN 6.633 mls/hr IV . [id number] [facility] Rx#:[id number] Output: Gastric Drainage 400 Urine 15 51 30 Other: Voiding Method Indwelling Catheter Indwelling Catheter Indwelling Catheter ABP, PAP, CO, CI - Last Documented Arterial Blood Pressure 117/82 Pulmonary Artery Pressure 46/22 Cardiac Output 2.4 Cardiac Index 1.3 - Labs CBC & Chem 7: 01/07/24 15:03 01/07/24 10:17 Labs: Abnormal Lab Results - Last 24 Hours (Table) 01/05/24 01/06/24 01/06/24 Range/Units 23:25 15:30 15:30 WBC (3.8-10.6) k/uL Hgb (13.0-17.5) gm/dL Neutrophils # (1.3-7.7) k/uL PT 13.2 H (10.0-12.5) sec INR 1.3 H (<1.2) APTT 185.7 H* (22.0-30.0) sec ABG pH (7.35-7.45) ABG pCO2 (35-45) mmHg ABG pO2 (83-108) mmHg ABG HCO3 (21-25) mmol/L ABG Total CO2 (19-24) mmol/L ABG O2 Saturation (94-97) % ABG Lactic Acid 8.3 H* (0.5-1.6) mmol/L Potassium (3.5-5.1) mmol/L Chloride (98-107) mmol/L Carbon Dioxide (22-30) mmol/L BUN (9-20) mg/dL Creatinine (0.66-1.25) mg/dL Glucose (74-99) mg/dL POC Glucose (mg/dL) (70-110) mg/dL Plasma Lactic Acid Alexander 5.0 H* (0.7-2.0) mmol/L Calcium (8.4-10.2) mg/dL Phosphorus (2.5-4.5) mg/dL Magnesium (1.6-2.3) mg/dL Total Bilirubin (0.2-1.3) mg/dL AST (17-59) U/L ALT (4-49) U/L Lactate Dehydrogenase (120-246) U/L Total Protein (6.3-8.2) g/dL Albumin (3.5-5.0) g/dL 01/06/24 01/06/24 01/06/24 Range/Units 15:30 18:25 18:25 WBC (3.8-10.6) k/uL Hgb (13.0-17.5) gm/dL Neutrophils # (1.3-7.7) k/uL PT (10.0-12.5) sec INR (<1.2) APTT 82.9 H (22.0-30.0) sec ABG pH (7.35-7.45) ABG pCO2 (35-45) mmHg ABG pO2 (83-108) mmHg ABG HCO3 (21-25) mmol/L ABG Total CO2 (19-24) mmol/L ABG O2 Saturation (94-97) % ABG Lactic Acid (0.5-1.6) mmol/L Potassium (3.5-5.1) mmol/L Chloride 111 H (98-107) mmol/L Carbon Dioxide 19 L (22-30) mmol/L BUN (9-20) mg/dL Creatinine (0.66-1.25) mg/dL Glucose 274 H (74-99) mg/dL POC Glucose (mg/dL) (70-110) mg/dL Plasma Lactic Acid Alexander (0.7-2.0) mmol/L Calcium (8.4-10.2) mg/dL Phosphorus (2.5-4.5) mg/dL Magnesium 3.2 H (1.6-2.3) mg/dL Total Bilirubin (0.2-1.3) mg/dL AST (17-59) U/L ALT (4-49) U/L Lactate Dehydrogenase 1786 H (120-246) U/L Total Protein (6.3-8.2) g/dL Albumin (3.5-5.0) g/dL 01/06/24 01/06/24 01/06/24 Range/Units 19:54 20:40 22:15 WBC (3.8-10.6) k/uL Hgb (13.0-17.5) gm/dL Neutrophils # (1.3-7.7) k/uL PT (10.0-12.5) sec INR (<1.2) APTT (22.0-30.0) sec ABG pH (7.35-7.45) ABG pCO2 (35-45) mmHg ABG pO2 (83-108) mmHg ABG HCO3 (21-25) mmol/L ABG Total CO2 (19-24) mmol/L ABG O2 Saturation (94-97) % ABG Lactic Acid (0.5-1.6) mmol/L Potassium (3.5-5.1) mmol/L Chloride 112 H (98-107) mmol/L Carbon Dioxide 16 L (22-30) mmol/L BUN (9-20) mg/dL Creatinine 1.73 H (0.66-1.25) mg/dL Glucose 183 H (74-99) mg/dL POC Glucose (mg/dL) 185 H (70-110) mg/dL Plasma Lactic Acid Alexander 6.9 H* (0.7-2.0) mmol/L Calcium 8.3 L (8.4-10.2) mg/dL Phosphorus (2.5-4.5) mg/dL Magnesium 3.0 H (1.6-2.3) mg/dL Total Bilirubin (0.2-1.3) mg/dL AST (17-59) U/L ALT (4-49) U/L Lactate Dehydrogenase (120-246) U/L Total Protein (6.3-8.2) g/dL Albumin (3.5-5.0) g/dL 01/06/24 01/06/24 01/06/24 Range/Units 22:15 23:00 23:25 WBC 17.9 H (3.8-10.6) k/uL Hgb (13.0-17.5) gm/dL Neutrophils # (1.3-7.7) k/uL PT (10.0-12.5) sec INR (<1.2) APTT 70.9 H (22.0-30.0) sec ABG pH (7.35-7.45) ABG pCO2 (35-45) mmHg ABG pO2 (83-108) mmHg ABG HCO3 (21-25) mmol/L ABG Total CO2 (19-24) mmol/L ABG O2 Saturation (94-97) % ABG Lactic Acid (0.5-1.6) mmol/L Potassium (3.5-5.1) mmol/L Chloride (98-107) mmol/L Carbon Dioxide (22-30) mmol/L BUN (9-20) mg/dL Creatinine (0.66-1.25) mg/dL Glucose (74-99) mg/dL POC Glucose (mg/dL) (70-110) mg/dL Plasma Lactic Acid Alexander (0.7-2.0) mmol/L Calcium (8.4-10.2) mg/dL Phosphorus (2.5-4.5) mg/dL Magnesium (1.6-2.3) mg/dL Total Bilirubin (0.2-1.3) mg/dL AST (17-59) U/L ALT (4-49) U/L Lactate Dehydrogenase 2166 H (120-246) U/L Total Protein (6.3-8.2) g/dL Albumin (3.5-5.0) g/dL 01/07/24 01/07/24 01/07/24 Range/Units 02:25 02:25 03:22 WBC (3.8-10.6) k/uL Hgb (13.0-17.5) gm/dL Neutrophils # (1.3-7.7) k/uL PT (10.0-12.5) sec INR (<1.2) APTT 76.9 H (22.0-30.0) sec ABG pH 7.28 L (7.35-7.45) ABG pCO2 29 L (35-45) mmHg ABG pO2 142 H (83-108) mmHg ABG HCO3 14 L (21-25) mmol/L ABG Total CO2 15 L (19-24) mmol/L ABG O2 Saturation 98.8 H (94-97) % ABG Lactic Acid (0.5-1.6) mmol/L Potassium (3.5-5.1) mmol/L Chloride (98-107) mmol/L Carbon Dioxide (22-30) mmol/L BUN (9-20) mg/dL Creatinine (0.66-1.25) mg/dL Glucose (74-99) mg/dL POC Glucose (mg/dL) (70-110) mg/dL Plasma Lactic Acid Alexander (0.7-2.0) mmol/L Calcium (8.4-10.2) mg/dL Phosphorus (2.5-4.5) mg/dL Magnesium (1.6-2.3) mg/dL Total Bilirubin (0.2-1.3) mg/dL AST (17-59) U/L ALT (4-49) U/L Lactate Dehydrogenase 2473 H (120-246) U/L Total Protein (6.3-8.2) g/dL Albumin (3.5-5.0) g/dL 01/07/24 01/07/24 01/07/24 Range/Units 04:00 05:15 05:15 WBC 16.6 H (3.8-10.6) k/uL Hgb (13.0-17.5) gm/dL Neutrophils # 14.7 H (1.3-7.7) k/uL PT (10.0-12.5) sec INR (<1.2) APTT (22.0-30.0) sec ABG pH (7.35-7.45) ABG pCO2 (35-45) mmHg ABG pO2 (83-108) mmHg ABG HCO3 (21-25) mmol/L ABG Total CO2 (19-24) mmol/L ABG O2 Saturation (94-97) % ABG Lactic Acid 10.1 H* (0.5-1.6) mmol/L Potassium 5.4 H (3.5-5.1) mmol/L Chloride 114 H (98-107) mmol/L Carbon Dioxide 10 L (22-30) mmol/L BUN 23 H (9-20) mg/dL Creatinine 2.38 H (0.66-1.25) mg/dL Glucose 126 H (74-99) mg/dL POC Glucose (mg/dL) (70-110) mg/dL Plasma Lactic Acid Alexander (0.7-2.0) mmol/L Calcium 8.2 L (8.4-10.2) mg/dL Phosphorus 6.9 H (2.5-4.5) mg/dL Magnesium 3.0 H (1.6-2.3) mg/dL Total Bilirubin 2.6 H (0.2-1.3) mg/dL AST 1399 H (17-59) U/L ALT 423 H (4-49) U/L Lactate Dehydrogenase 3106 H (120-246) U/L Total Protein 5.1 L (6.3-8.2) g/dL Albumin 2.7 L (3.5-5.0) g/dL 01/07/24 01/07/24 01/07/24 Range/Units 06:30 06:30 06:34 WBC (3.8-10.6) k/uL Hgb (13.0-17.5) gm/dL Neutrophils # (1.3-7.7) k/uL PT (10.0-12.5) sec INR (<1.2) APTT 114.1 H* (22.0-30.0) sec ABG pH (7.35-7.45) ABG pCO2 (35-45) mmHg ABG pO2 (83-108) mmHg ABG HCO3 (21-25) mmol/L ABG Total CO2 (19-24) mmol/L ABG O2 Saturation (94-97) % ABG Lactic Acid (0.5-1.6) mmol/L Potassium (3.5-5.1) mmol/L Chloride (98-107) mmol/L Carbon Dioxide (22-30) mmol/L BUN (9-20) mg/dL Creatinine 2.47 H (0.66-1.25) mg/dL Glucose (74-99) mg/dL POC Glucose (mg/dL) 126 H (70-110) mg/dL Plasma Lactic Acid Alexander (0.7-2.0) mmol/L Calcium (8.4-10.2) mg/dL Phosphorus (2.5-4.5) mg/dL Magnesium (1.6-2.3) mg/dL Total Bilirubin (0.2-1.3) mg/dL AST (17-59) U/L ALT (4-49) U/L Lactate Dehydrogenase (120-246) U/L Total Protein (6.3-8.2) g/dL Albumin (3.5-5.0) g/dL 01/07/24 01/07/24 01/07/24 Range/Units 10:40 11:48 12:21 WBC (3.8-10.6) k/uL Hgb (13.0-17.5) gm/dL Neutrophils # (1.3-7.7) k/uL PT (10.0-12.5) sec INR (<1.2) APTT (22.0-30.0) sec ABG pH 7.22 L (7.35-7.45) ABG pCO2 (35-45) mmHg ABG pO2 (83-108) mmHg ABG HCO3 17 L (21-25) mmol/L ABG Total CO2 18 L (19-24) mmol/L ABG O2 Saturation (94-97) % ABG Lactic Acid 11.5 H* (0.5-1.6) mmol/L Potassium (3.5-5.1) mmol/L Chloride (98-107) mmol/L Carbon Dioxide (22-30) mmol/L BUN (9-20) mg/dL Creatinine (0.66-1.25) mg/dL Glucose (74-99) mg/dL POC Glucose (mg/dL) 171 H (70-110) mg/dL Plasma Lactic Acid Alexander (0.7-2.0) mmol/L Calcium (8.4-10.2) mg/dL Phosphorus (2.5-4.5) mg/dL Magnesium (1.6-2.3) mg/dL Total Bilirubin (0.2-1.3) mg/dL AST (17-59) U/L ALT (4-49) U/L Lactate Dehydrogenase (120-246) U/L Total Protein (6.3-8.2) g/dL Albumin (3.5-5.0) g/dL 01/07/24 Range/Units 15:03 WBC 20.7 H (3.8-10.6) k/uL Hgb 12.6 L (13.0-17.5) gm/dL Neutrophils # (1.3-7.7) k/uL PT (10.0-12.5) sec INR (<1.2) APTT (22.0-30.0) sec ABG pH (7.35-7.45) ABG pCO2 (35-45) mmHg ABG pO2 (83-108) mmHg ABG HCO3 (21-25) mmol/L ABG Total CO2 (19-24) mmol/L ABG O2 Saturation (94-97) % ABG Lactic Acid (0.5-1.6) mmol/L Potassium (3.5-5.1) mmol/L Chloride (98-107) mmol/L Carbon Dioxide (22-30) mmol/L BUN (9-20) mg/dL Creatinine (0.66-1.25) mg/dL Glucose (74-99) mg/dL POC Glucose (mg/dL) (70-110) mg/dL Plasma Lactic Acid Alexander (0.7-2.0) mmol/L Calcium (8.4-10.2) mg/dL Phosphorus (2.5-4.5) mg/dL Magnesium (1.6-2.3) mg/dL Total Bilirubin (0.2-1.3) mg/dL AST (17-59) U/L ALT (4-49) U/L Lactate Dehydrogenase (120-246) U/L Total Protein (6.3-8.2) g/dL Albumin (3.5-5.0) g/dL Microbiology - Last 24 Hours (Table) 01/06/24 20:27 Gram Stain - Preliminary Sputum
[2024-01-07] MEDS: HEPARIN SODIUM 1,000 UN/ML (10ML VL) IV PRN (16:32)
[2024-01-07 17:25] LABS: Glucose,Whole Blood 204 mg/dL (70-110)
--- NOTE | 2024-01-07 17:31 | P.HPIM ---
History of Present Illness H&P Date: 01/06/24 Chief Complaint: cardiac arrest Patient is a 63-year-old male with known hypertension and prostate disorder who presented to the emergency department as CPR in progress. From review of EMS records the patient suffered a cardiac arrest at approximately 950 and they arrived within to fire department administering CPR third 3 defibrillations. They obtained ROSC at 1032 and proceeded with transportation to our facility patient was intubated in the field. There was concerns for possible ST segment elevated myocardial infarction on field EKG. During transportation to the emergency department the patient again lost pulses and CPR was administered. The lumen central line placed and was intubated with confirmed ET tube placement. In the emergency department he was noted to remain hypotensive and started on Levophed. After ROSC had been obtained he was transferred to the cardiac [employer] where he underwent 1 stent to the mid LAD. During his stay in [employer] he again went into V-fib requiring defibrillation x 2, amiodarone drip was started and an Impella was placed. He was subsequently transferred to the ICU. Patient seen and examined at bedside. He is unresponsive and intubated. Per nursing when arterial line was being placed by ICU team patient did have some movements in his extremities. Vital signs reviewed General: Ill-appearing, appears older than stated age, disheveled Derm: warm, dry Eyes: Pulls pinpoint, not reactive to light, anicteric sclera ENT: Nose and ears atraumatic Cardiovascular: S1S2 irregular, no murmur, no edema Lungs: Breath sounds bilaterally, on vent, Impella in place Abdominal: soft, nontender to palpation, no guarding Ext: no gross muscle atrophy, no contractures Neuro: Was gven nimbex and unable to assess at this time. Psych: Sedated on vent Assessment/Plan: Out of hospital V fib adn PEA arrest: Total down time is greater than 60 minutes NSTEMI s/p PCI to the LAD VF storm Cardiogenic shock s/p Impella lactic acidosis resulting in non anion gap metabolic acidosis HTN - await echo - case discussed with cardio with recurent V fib will change to lidocaine if again goes into V fib - Pulm consult reviewed continue marry - Repat CXR in AM - wean levo as able Aspirin 81 mg, kevon agreeable or 90 mg twice daily, Lipitor 40 mg at night -Heparin drip -High probability of anoxic injury. Monitor neurologic status closely with sedation holiday. Hyperglycemia without history of diabetes -Sliding scale insulin every 6 hours, follow blood sugars -Check A1c Nicotine dependency Imaging: Reviewed by myself demonstrates increased pulmonary vascular congestion bilaterally and a batwing pattern, ET tube in place Data Review: Include CBC, coags, CMP, troponin, and lactic acid which are remarkable for lactic acid 7.9, chloride 111, carbon dioxide 17, troponin 0.068 Overall poor prognosis. Family updated at beside The patient is admitted with an anticipated greater than 2 midnight stay for evaluation of out of hospital cardiac arrest. Surrogate decision-maker: CODE STATUS:full DVT prophylaxis: Heparin gtt Anticipated discharge date: Pending Clinical Course Anticipated discharge place: Pending Clinical Course This dictation was prepared using [employer] voice recognition software. Though every attempt is made to correct errors during dictation some may still exist. Past Medical History Past Medical History: No Reported History, Hypertension Additional Past Medical History / Comment(s): HLD History of Any Multi-Drug Resistant Organisms: None Reported Past Surgical History: No Surgical Hx Reported Past Psychological History: No Psychological Hx Reported Smoking Status: Current every day smoker Past Alcohol Use History: None Reported Past Drug Use History: None Reported Medications and Allergies Home Medications Medication Instructions Recorded Confirmed Type lisinopriL [Zestril] 10 mg PO DAILY #30 tab 11/27/22 01/06/24 Rx Tamsulosin HCl [Flomax] 0.4 mg PO HS 01/06/24 01/06/24 History Allergies Allergy/AdvReac Type Severity Reaction Status Date / Time Sulfa (Sulfonamide Allergy Swelling Verified 01/06/24 11:10 Antibiotics) Physical Exam Osteopathic Statement: *. No significant issues noted on an osteopathic structural exam other than those noted in the History and Physical/Consult. Vitals: Vital Signs Temp Pulse Pulse Resp BP BP Pulse Ox 01/06/24 16:15 78 16 125/99 97 01/06/24 16:00 104 H 16 117/93 96 01/06/24 15:50 01/06/24 15:45 81 16 117/93 95 01/06/24 15:30 76 16 110/89 96 01/06/24 15:15 81 8 L 110/88 01/06/24 15:03 77 28 H 01/06/24 13:24 01/06/24 12:15 66 18 78/54 04/23/24 12:10 64 18 78/57 01/06/24 12:05 72/55 01/06/24 12:03 75/57 01/06/24 11:45 61/45 01/06/24 11:40 64/47 01/06/24 11:35 65/54 01/06/24 11:30 82/61 01/06/24 11:24 97.2 F L 92/69 FiO2 01/06/24 16:15 01/06/24 16:00 01/06/24 15:50 100 01/06/24 15:45 01/06/24 15:30 100 01/06/24 15:15 01/06/24 15:03 01/06/24 13:24 100 01/06/24 12:15 01/06/24 12:10 01/06/24 12:05 01/06/24 12:03 01/06/24 11:45 01/06/24 11:40 01/06/24 11:35 01/06/24 11:30 100 01/06/24 11:24 Intake and Output 01/06/24 01/06/24 01/06/24 06:59 14:59 22:59 Intake Total 450 154.613 Balance 450 154.613 Intake: IV 450 150 Sodium Chloride 0.9% 1, 150 000 ml @ 75 mls/hr IV . [id number] [facility] Rx#:[id number] Intake, IV Titration 4.613 Amount Norepinephrine 32 mg In 4.613 Sodium Chloride 0.9% 218 ml @ 0.03 MCG/KG/MIN 1.23 mls/hr IV .Q24H [facility] Rx#: [id number] Other: Weight 73.7 kg ABP, PAP, CO, CI - Last 8 Hours Arterial Blood Pressure 105/84 Arterial Blood Pressure 122/83 Arterial Blood Pressure 132/93 Arterial Blood Pressure 126/92 Pulmonary Artery Pressure 38/32 Pulmonary Artery Pressure 46/39 Pulmonary Artery Pressure 43/36 Cardiac Output 2.4 Cardiac Output 2.4 Cardiac Index 1.3 Cardiac Index 1.3 Results CBC & Chem 7: 01/06/24 15:30 01/06/24 15:30 Labs: Abnormal Lab Results - Last 24 Hours (Table) 01/06/24 01/06/24 01/06/24 Range/Units 11:35 11:35 11:35 WBC (3.8-10.6) k/uL Neutrophils # (1.3-7.7) k/uL ABG pH (7.35-7.45) ABG pO2 (83-108) mmHg ABG HCO3 (21-25) mmol/L Chloride 111 H (98-107) mmol/L Carbon Dioxide 17 L (22-30) mmol/L Glucose 265 H (74-99) mg/dL POC Glucose (mg/dL) (70-110) mg/dL Plasma Lactic Acid Alexander 7.9 H* (0.7-2.0) mmol/L Calcium 8.0 L (8.4-10.2) mg/dL Troponin I 0.086 H* (0.000-0.034) ng/mL Total Protein 5.6 L (6.3-8.2) g/dL Albumin 3.0 L (3.5-5.0) g/dL 01/06/24 01/06/24 01/06/24 Range/Units 15:30 15:39 15:41 WBC 22.1 H (3.8-10.6) k/uL Neutrophils # 19.8 H (1.3-7.7) k/uL ABG pH 7.29 L (7.35-7.45) ABG pO2 76 L (83-108) mmHg ABG HCO3 20 L (21-25) mmol/L Chloride (98-107) mmol/L Carbon Dioxide (22-30) mmol/L Glucose (74-99) mg/dL POC Glucose (mg/dL) 283 H (70-110) mg/dL Plasma Lactic Acid Alexander (0.7-2.0) mmol/L Calcium (8.4-10.2) mg/dL Troponin I (0.000-0.034) ng/mL Total Protein (6.3-8.2) g/dL Albumin (3.5-5.0) g/dL
--- NOTE | 2024-01-07 17:53 | P.PN ---
Subjective Progress Note Date: 01/07/24 (cornell charting seen at 1015) Patient is a 63-year-old male with known hypertension and prostate disorder who presented to the emergency department as CPR in progress. From review of EMS records the patient suffered a cardiac arrest at approximately 950 and they arrived within to fire department administering CPR third 3 defibrillations. They obtained ROSC at 1032 and proceeded with transportation to our facility patient was intubated in the field. There was concerns for possible ST segment elevated myocardial infarction on field EKG. During transportation to the emergency department the patient again lost pulses and CPR was administered. The lumen central line placed and was intubated with confirmed ET tube placement. In the emergency department he was noted to remain hypotensive and started on Levophed. After ROSC had been obtained he was transferred to the cardiac [facility] where he underwent 1 stent to the mid LAD. During his stay in [facility] he again went into V-fib requiring defibrillation x 2, amiodarone drip was started and an Impella was placed. He was subsequently transferred to the ICU. The night after admission he had decreasing blood pressures and urine o utput. He ultimately was started on epinephrine drip in addition to norepinephrine and lidocaine was added due to arrhythmia. He was noted to have significant hemolysis associated with his Impella device, however every time they attempted to wean Impella support patient became hypotensive. By the morning of 01/06 he was noted to have oliguric acute kidney injury, ischemic hepatitis, and continued cardiogenic shock. Patient seen and examined at bedside. Sedated on vent. Blood from all access devices and in NGT Vital signs reviewed General: Nontoxic, no distress, appears at stated age, pulls equal round reactive to light though sluggish, breathing over the vent Cardiovascular: S1S2 reg, no murmur Lungs: Course bs bilateral, no rhonchi, no rales, no accessory muscle use Abdominal: Soft, nontender to palpation, no guarding Ext: No gross muscle atrophy, no edema b/l lower extremities, no contractures Neuro:sedated on vent Psych: sedated on vent Assessment/Plan: Out of hospital V fib adn PEA arrest: Total down time is greater than 60 minutes NSTEMI s/p PCI to the LAD VF storm Cardiogenic shock s/p Impella Iscemic cardiomyopathy with ejection fraction 15 to 20% lactic acidosis Acute hypoxic, vent dependent respiratory failure oliguic acute kidney injury, suspect ATN Ischemic hepatitis Multiorgan failure Impella related hemolysis vs DIC P. A. fib Probable anoxic encephalopathy -Cardiology note reviewed and case discussed with Dr. June. Worsening overall status. Cardiogenic shock. Overall poor prognosis. -Wean levo, vaso, and epinephrine as able. -Lidocaine drip -Heparin drip - Aspirin 81 mg, Hrymffdna27 mg twice daily, Lipitor 40 mg at night -High probability of anoxic injury. Not stable enough for sedation holiday. EEG in AM -Consult nephrology, monitor his I's and O's, repeat BMP at 2039 5 AM in a.m. -Continue to monitor fibrinogen and LDH -Repeat CBC at 2099 and in a.m. -Repeat CMP in a.m. Hyperglycemia without diabetes -Sliding scale insulin every 6 hours, follow blood sugars -A1c 5.7 Nicotine dependency HX HTN Imaging: CXR- conitnued pulm vascular congestion Limited echo- severe LV dysfunction with EF 15-20% Data Review: Labs reviewed from today include CBC and CMP, coags, magnesium, phosphorus, A1c, LDH with multiple abnormalities. Family updated on poor prognosis and worsening of status overnight leading to multiorgan failure. After a prolonged discussion and daugther in agreement with DVT prophylaxis: Heparin gtt Anticipated discharge date: Poor overall prognosis Anticipated discharge place: Poor overall prognosis This dictation was prepared using [employer] voice recognition software. Though every attempt is made to correct errors during dictation some may still exist. Objective - Vital Signs Vital signs: Vital Signs Temp 99.1 F 01/07/24 16:00 Pulse 63 01/07/24 17:30 Resp 21 01/07/24 17:30 BP 92/76 01/06/24 21:15 Pulse Ox 96 01/06/24 22:15 FiO2 90 01/07/24 16:00 Intake & Output 01/06/24 01/07/24 01/07/24 18:59 06:59 18:59 Intake Total 542.297 4432.989 1809.079 Output Total 15 451 30 Balance 240.048 0932.989 1779.079 Weight 73.7 kg Intake: IV 750 1142 1166 CO/CI 110 70 Dextrose 5% in Water 1, 1000 000 ml @ 100 mls/hr IV . [id number] [facility] with Sodium Bicarb (1 Meq/ml) 150 ml Rx#:[id number] Pressure Bag 132 96 Sodium Chloride 0.9% 1, 300 900 000 ml @ 75 mls/hr IV . [id number] [facility] Rx#:[id number] Intake, IV Titration 77.674 451.989 643.079 Amount Amiodarone 450 mg In 223.338 Dextrose 5% in Water 250 ml @ 0.5 MG/MIN 16.667 mls/hr IV .Q15H [facility] Rx#: [id number] EPINEPHrine 4 mg In 79.455 Dextrose 5% in Water 250 ml @ 0.03 MCG/KG/MIN 8. 291 mls/hr IV .Q24H [facility] Rx#:[id number] Heparin Sod,Pork in 0.45% 25.795 132.697 NaCl 25,000 unit In 0.45 % NaCl 1 250ml.bag @ 12 UNITS/KG/HR 8.844 mls/hr IV .Q24H [facility] Rx#: [id number] Lidocaine-D5w Pmx 2G/ 192.25 250Ml 2,000 mg In Dextrose/Water 1 250ml. bag @ 2 MG/MIN 15 mls/hr IV .[id number] [facility] Rx#: [id number] Norepinephrine 32 mg In 43.005 126.944 80.051 Sodium Chloride 0.9% 218 ml @ 0.03 MCG/KG/MIN 1.23 mls/hr IV .Q24H [facility] Rx#: [id number] Vasopressin 60 unit In 8.874 0 85.221 Sodium Chloride 0.9% 150 ml @ 0.03 UNITS/MIN 4.59 mls/hr IV .Q24H [facility] Rx#: [id number] propofoL 1,000 mg In 101.707 73.405 Empty Bag 1 bag @ 15 MCG/ KG/MIN 6.633 mls/hr IV . [id number] [facility] Rx#:[id number] Output: Gastric Drainage 400 Urine 15 51 30 Other: Voiding Method Indwelling Catheter Indwelling Catheter Indwelling Catheter ABP, PAP, CO, CI - Last Documented Arterial Blood Pressure 80/65 Pulmonary Artery Pressure 34/24 Cardiac Output 2.2 Cardiac Index 1.2 - Labs CBC & Chem 7: 01/07/24 15:03 01/07/24 10:17 Labs: Abnormal Lab Results - Last 24 Hours (Table) 04/22/24 04/23/24 04/23/24 Range/Units 23:25 18:25 18:25 WBC (3.8-10.6) k/uL Hgb (13.0-17.5) gm/dL Neutrophils # (1.3-7.7) k/uL APTT 82.9 H (22.0-30.0) sec ABG pH (7.35-7.45) ABG pCO2 (35-45) mmHg ABG pO2 (83-108) mmHg ABG HCO3 (21-25) mmol/L ABG Total CO2 (19-24) mmol/L ABG O2 Saturation (94-97) % ABG Lactic Acid 8.3 H* (0.5-1.6) mmol/L Potassium (3.5-5.1) mmol/L Chloride (98-107) mmol/L Carbon Dioxide (22-30) mmol/L BUN (9-20) mg/dL Creatinine (0.66-1.25) mg/dL Glucose (74-99) mg/dL POC Glucose (mg/dL) (70-110) mg/dL Plasma Lactic Acid Alexander (0.7-2.0) mmol/L Calcium (8.4-10.2) mg/dL Phosphorus (2.5-4.5) mg/dL Magnesium (1.6-2.3) mg/dL Total Bilirubin (0.2-1.3) mg/dL AST (17-59) U/L ALT (4-49) U/L Lactate Dehydrogenase 1786 H (120-246) U/L Total Protein (6.3-8.2) g/dL Albumin (3.5-5.0) g/dL 01/06/24 01/06/24 01/06/24 Range/Units 19:54 20:40 22:15 WBC (3.8-10.6) k/uL Hgb (13.0-17.5) gm/dL Neutrophils # (1.3-7.7) k/uL APTT (22.0-30.0) sec ABG pH (7.35-7.45) ABG pCO2 (35-45) mmHg ABG pO2 (83-108) mmHg ABG HCO3 (21-25) mmol/L ABG Total CO2 (19-24) mmol/L ABG O2 Saturation (94-97) % ABG Lactic Acid (0.5-1.6) mmol/L Potassium (3.5-5.1) mmol/L Chloride 112 H (98-107) mmol/L Carbon Dioxide 16 L (22-30) mmol/L BUN (9-20) mg/dL Creatinine 1.73 H (0.66-1.25) mg/dL Glucose 183 H (74-99) mg/dL POC Glucose (mg/dL) 185 H (70-110) mg/dL Plasma Lactic Acid Alexander 6.9 H* (0.7-2.0) mmol/L Calcium 8.3 L (8.4-10.2) mg/dL Phosphorus (2.5-4.5) mg/dL Magnesium 3.0 H (1.6-2.3) mg/dL Total Bilirubin (0.2-1.3) mg/dL AST (17-59) U/L ALT (4-49) U/L Lactate Dehydrogenase (120-246) U/L Total Protein (6.3-8.2) g/dL Albumin (3.5-5.0) g/dL 01/06/24 01/06/24 01/06/24 Range/Units 22:15 23:00 23:25 WBC 17.9 H (3.8-10.6) k/uL Hgb (13.0-17.5) gm/dL Neutrophils # (1.3-7.7) k/uL APTT 70.9 H (22.0-30.0) sec ABG pH (7.35-7.45) ABG pCO2 (35-45) mmHg ABG pO2 (83-108) mmHg ABG HCO3 (21-25) mmol/L ABG Total CO2 (19-24) mmol/L ABG O2 Saturation (94-97) % ABG Lactic Acid (0.5-1.6) mmol/L Potassium (3.5-5.1) mmol/L Chloride (98-107) mmol/L Carbon Dioxide (22-30) mmol/L BUN (9-20) mg/dL Creatinine (0.66-1.25) mg/dL Glucose (74-99) mg/dL POC Glucose (mg/dL) (70-110) mg/dL Plasma Lactic Acid Alexander (0.7-2.0) mmol/L Calcium (8.4-10.2) mg/dL Phosphorus (2.5-4.5) mg/dL Magnesium (1.6-2.3) mg/dL Total Bilirubin (0.2-1.3) mg/dL AST (17-59) U/L ALT (4-49) U/L Lactate Dehydrogenase 2166 H (120-246) U/L Total Protein (6.3-8.2) g/dL Albumin (3.5-5.0) g/dL 01/07/24 01/07/24 01/07/24 Range/Units 02:25 02:25 03:22 WBC (3.8-10.6) k/uL Hgb (13.0-17.5) gm/dL Neutrophils # (1.3-7.7) k/uL APTT 76.9 H (22.0-30.0) sec ABG pH 7.28 L (7.35-7.45) ABG pCO2 29 L (35-45) mmHg ABG pO2 142 H (83-108) mmHg ABG HCO3 14 L (21-25) mmol/L ABG Total CO2 15 L (19-24) mmol/L ABG O2 Saturation 98.8 H (94-97) % ABG Lactic Acid (0.5-1.6) mmol/L Potassium (3.5-5.1) mmol/L Chloride (98-107) mmol/L Carbon Dioxide (22-30) mmol/L BUN (9-20) mg/dL Creatinine (0.66-1.25) mg/dL Glucose (74-99) mg/dL POC Glucose (mg/dL) (70-110) mg/dL Plasma Lactic Acid Alexander (0.7-2.0) mmol/L Calcium (8.4-10.2) mg/dL Phosphorus (2.5-4.5) mg/dL Magnesium (1.6-2.3) mg/dL Total Bilirubin (0.2-1.3) mg/dL AST (17-59) U/L ALT (4-49) U/L Lactate Dehydrogenase 2473 H (120-246) U/L Total Protein (6.3-8.2) g/dL Albumin (3.5-5.0) g/dL 01/07/24 01/07/24 01/07/24 Range/Units 04:00 05:15 05:15 WBC 16.6 H (3.8-10.6) k/uL Hgb (13.0-17.5) gm/dL Neutrophils # 14.7 H (1.3-7.7) k/uL APTT (22.0-30.0) sec ABG pH (7.35-7.45) ABG pCO2 (35-45) mmHg ABG pO2 (83-108) mmHg ABG HCO3 (21-25) mmol/L ABG Total CO2 (19-24) mmol/L ABG O2 Saturation (94-97) % ABG Lactic Acid 10.1 H* (0.5-1.6) mmol/L Potassium 5.4 H (3.5-5.1) mmol/L Chloride 114 H (98-107) mmol/L Carbon Dioxide 10 L (22-30) mmol/L BUN 23 H (9-20) mg/dL Creatinine 2.38 H (0.66-1.25) mg/dL Glucose 126 H (74-99) mg/dL POC Glucose (mg/dL) (70-110) mg/dL Plasma Lactic Acid Alexander (0.7-2.0) mmol/L Calcium 8.2 L (8.4-10.2) mg/dL Phosphorus 6.9 H (2.5-4.5) mg/dL Magnesium 3.0 H (1.6-2.3) mg/dL Total Bilirubin 2.6 H (0.2-1.3) mg/dL AST 1399 H (17-59) U/L ALT 423 H (4-49) U/L Lactate Dehydrogenase 3106 H (120-246) U/L Total Protein 5.1 L (6.3-8.2) g/dL Albumin 2.7 L (3.5-5.0) g/dL 01/07/24 01/07/24 01/07/24 Range/Units 06:30 06:30 06:34 WBC (3.8-10.6) k/uL Hgb (13.0-17.5) gm/dL Neutrophils # (1.3-7.7) k/uL APTT 114.1 H* (22.0-30.0) sec ABG pH (7.35-7.45) ABG pCO2 (35-45) mmHg ABG pO2 (83-108) mmHg ABG HCO3 (21-25) mmol/L ABG Total CO2 (19-24) mmol/L ABG O2 Saturation (94-97) % ABG Lactic Acid (0.5-1.6) mmol/L Potassium (3.5-5.1) mmol/L Chloride (98-107) mmol/L Carbon Dioxide (22-30) mmol/L BUN (9-20) mg/dL Creatinine 2.47 H (0.66-1.25) mg/dL Glucose (74-99) mg/dL POC Glucose (mg/dL) 126 H (70-110) mg/dL Plasma Lactic Acid Alexander (0.7-2.0) mmol/L Calcium (8.4-10.2) mg/dL Phosphorus (2.5-4.5) mg/dL Magnesium (1.6-2.3) mg/dL Total Bilirubin (0.2-1.3) mg/dL AST (17-59) U/L ALT (4-49) U/L Lactate Dehydrogenase (120-246) U/L Total Protein (6.3-8.2) g/dL Albumin (3.5-5.0) g/dL 01/07/24 01/07/24 01/07/24 Range/Units 10:40 11:48 12:21 WBC (3.8-10.6) k/uL Hgb (13.0-17.5) gm/dL Neutrophils # (1.3-7.7) k/uL APTT (22.0-30.0) sec ABG pH 7.22 L (7.35-7.45) ABG pCO2 (35-45) mmHg ABG pO2 (83-108) mmHg ABG HCO3 17 L (21-25) mmol/L ABG Total CO2 18 L (19-24) mmol/L ABG O2 Saturation (94-97) % ABG Lactic Acid 11.5 H* (0.5-1.6) mmol/L Potassium (3.5-5.1) mmol/L Chloride (98-107) mmol/L Carbon Dioxide (22-30) mmol/L BUN (9-20) mg/dL Creatinine (0.66-1.25) mg/dL Glucose (74-99) mg/dL POC Glucose (mg/dL) 171 H (70-110) mg/dL Plasma Lactic Acid Alexander (0.7-2.0) mmol/L Calcium (8.4-10.2) mg/dL Phosphorus (2.5-4.5) mg/dL Magnesium (1.6-2.3) mg/dL Total Bilirubin (0.2-1.3) mg/dL AST (17-59) U/L ALT (4-49) U/L Lactate Dehydrogenase (120-246) U/L Total Protein (6.3-8.2) g/dL Albumin (3.5-5.0) g/dL 01/07/24 01/07/24 01/07/24 Range/Units 15:03 15:03 15:03 WBC 20.7 H (3.8-10.6) k/uL Hgb 12.6 L (13.0-17.5) gm/dL Neutrophils # (1.3-7.7) k/uL APTT 31.8 H (22.0-30.0) sec ABG pH (7.35-7.45) ABG pCO2 (35-45) mmHg ABG pO2 (83-108) mmHg ABG HCO3 (21-25) mmol/L ABG Total CO2 (19-24) mmol/L ABG O2 Saturation (94-97) % ABG Lactic Acid (0.5-1.6) mmol/L Potassium (3.5-5.1) mmol/L Chloride (98-107) mmol/L Carbon Dioxide (22-30) mmol/L BUN (9-20) mg/dL Creatinine (0.66-1.25) mg/dL Glucose (74-99) mg/dL POC Glucose (mg/dL) (70-110) mg/dL Plasma Lactic Acid Alexander (0.7-2.0) mmol/L Calcium (8.4-10.2) mg/dL Phosphorus (2.5-4.5) mg/dL Magnesium (1.6-2.3) mg/dL Total Bilirubin (0.2-1.3) mg/dL AST (17-59) U/L ALT (4-49) U/L Lactate Dehydrogenase >24286 H (120-246) U/L Total Protein (6.3-8.2) g/dL Albumin (3.5-5.0) g/dL 01/07/24 01/07/24 Range/Units 16:11 17:24 WBC (3.8-10.6) k/uL Hgb (13.0-17.5) gm/dL Neutrophils # (1.3-7.7) k/uL APTT (22.0-30.0) sec ABG pH (7.35-7.45) ABG pCO2 (35-45) mmHg ABG pO2 (83-108) mmHg ABG HCO3 (21-25) mmol/L ABG Total CO2 (19-24) mmol/L ABG O2 Saturation (94-97) % ABG Lactic Acid (0.5-1.6) mmol/L Potassium (3.5-5.1) mmol/L Chloride (98-107) mmol/L Carbon Dioxide (22-30) mmol/L BUN (9-20) mg/dL Creatinine (0.66-1.25) mg/dL Glucose (74-99) mg/dL POC Glucose (mg/dL) 204 H (70-110) mg/dL Plasma Lactic Acid Alexander 9.3 H* (0.7-2.0) mmol/L Calcium (8.4-10.2) mg/dL Phosphorus (2.5-4.5) mg/dL Magnesium (1.6-2.3) mg/dL Total Bilirubin (0.2-1.3) mg/dL AST (17-59) U/L ALT (4-49) U/L Lactate Dehydrogenase (120-246) U/L Total Protein (6.3-8.2) g/dL Albumin (3.5-5.0) g/dL Microbiology - Last 24 Hours (Table) 01/06/24 20:27 Gram Stain - Preliminary Sputum
[2024-01-07 18:02] LABS: Glucose,Whole Blood 151 mg/dL (70-110)
[2024-01-07 21:00] LABS: Basophils % (A) 0 %; Eosinophils # (A) 0.1 k/uL (0-0.7); Eosinophils % (A) 0 %; HCT 36.5 % (39.0-53.0); HGB 12.2 gm/dL (13.0-17.5); Lymphocytes # (A) 1.5 k/uL (1.0-4.8); Lymphocytes % (A) 9 %; MCH 29.5 pg (25.0-35.0); MCHC 33.6 g/dL (31.0-37.0); MCV 87.9 fL (80.0-100.0); Mean Platelet Volume 8.8; Monocytes # (A) 0.4 k/uL (0-1.0); Monocytes % (A) 2 %; Neutrophils # (A) 14.2 k/uL (1.3-7.7); Neutrophils % (A) 88 %; Platelet Count 139 k/uL (150-450); RBC 4.15 m/uL (4.30-5.90); RDW 14.1 % (11.5-15.5); WBC 16.2 k/uL (3.8-10.6)
[2024-01-07 21:11] LABS: Partial Thromboplastin Time 38.1 sec (22.0-30.0)
[2024-01-07 21:27] LABS: African American GFR (CKD) 21 (>60 ml/min/1.73 sqM); Anion Gap 13 mmol/L; Blood Urea Nitrogen 33 mg/dL (9-20); Calcium 7.4 mg/dL (8.4-10.2); Carbon Dioxide 20 mmol/L (22-30); Chloride 103 mmol/L (98-107); Glucose 142 mg/dL (74-99); Non-African American GFR(CKD) 18 (>60 ml/min/1.73 sqM); Potassium 5.3 mmol/L (3.5-5.1); Sodium 136 mmol/L (137-145)
[2024-01-07 23:46] LABS: Glucose,Whole Blood 150 mg/dL (70-110)
[2024-01-08 03:17] LABS: HCT 31.1 % (39.0-53.0); HGB 10.9 gm/dL (13.0-17.5); MCH 30.5 pg (25.0-35.0); Mean Platelet Volume 9.5; RBC 3.58 m/uL (4.30-5.90); RDW 14.3 % (11.5-15.5); WBC 14.4 k/uL (3.8-10.6)
[2024-01-08 03:28] LABS: Partial Thromboplastin Time 40.4 sec (22.0-30.0)
[2024-01-08 03:46] VITALS: BP 114/50
[2024-01-08 03:46] LABS: Platelet Count 98 k/uL (150-450)
[2024-01-08 04:35] LABS: African American GFR (CKD) 18 (>60 ml/min/1.73 sqM); Albumin 2.2 g/dL (3.5-5.0); Alkaline Phosphatase 47 U/L (38-126); Anion Gap 8 mmol/L; Blood Urea Nitrogen 40 mg/dL (9-20); Calcium 7.1 mg/dL (8.4-10.2); Carbon Dioxide 24 mmol/L (22-30); Chloride 103 mmol/L (98-107); Glucose 128 mg/dL (74-99); Magnesium 2.5 mg/dL (1.6-2.3); Non-African American GFR(CKD) 16 (>60 ml/min/1.73 sqM); Phosphorus 6.4 mg/dL (2.5-4.5); Potassium 4.9 mmol/L (3.5-5.1); Sodium 135 mmol/L (137-145); Total Bilirubin 1.9 mg/dL (0.2-1.3); Total Protein 4.3 g/dL (6.3-8.2)
[2024-01-08 05:58] LABS: AST 12342 U/L (17-59)
[2024-01-08 05:59] LABS: ALT 7935 U/L (4-49)
[2024-01-08 06:04] LABS: Glucose,Whole Blood 97 mg/dL (70-110)
[2024-01-08 06:12] LABS: ABG Base Excess 5.2 mmol/L; ABG HCO3 29 mmol/L (21-25); ABG Oxygen Saturation 99.7 % (94-97); ABG PCO2 38 mmHg (35-45); ABG PH 7.49 (7.35-7.45); ABG PO2 196 mmHg (83-108); ABG TCO2 30 mmol/L (19-24); Allen Test Performed? Yes
--- NOTE | 2024-01-08 08:13 | XR ---
EXAMINATION TYPE: XR chest 1V portable DATE OF EXAM: 01/08/2024 COMPARISON: 01/07/2024 HISTORY: SOB, Follow Up FINDINGS: Indwelling tubes and catheters are unchanged.LVAD device is unchanged in position. No change in perihilar opacities. Stable appearance of the cardio-mediastinal structures at this time. Pleural effusion unchanged. IMPRESSION: 1. Stable portable chest. Clinical correlation and follow up until resolution is recommended.
--- NOTE | 2024-01-08 10:17 | P.NPCON ---
History of Present Illness - Reason for Consult acute renal failure - History of Present Illness Reason for consultation: Acute kidney injury History of present illness: Patient is a 63-year-old male seen in renal consultation for acute kidney injury. Baseline creatinine near 1 and is up to 3.86 today. Patient is oliguric. Patient was brought to the hospital due to cardiac arrest. It appears in the records that the patient had multiple cardiac arrests with prolonged downtime. He did undergo cardiac catheterization with 1 stent placed to the mid LAD. Patient coded while in the [facility] Clinician as well. Patient was subsequently on 3 different vasopressors but were all discontinued this morning. Patient is oliguric. I do see lisinopril and his home medication list as well as Flomax and both are currently held. He is currently on bicarb drip. Acidosis has resolved. Patient is intubated. He is on 75% FiO2. Vital signs are stable. General: Resting in bed. HEENT: Intubated. LUNGS: No audible rhonchi or wheezes. HEART: Rate and Rhythm are regular. ABDOMEN: No distention. EXTREMITITES: No edema. Past Medical History Past Medical History: No Reported History Additional Past Medical History / Comment(s): HLD History of Any Multi-Drug Resistant Organisms: None Reported Past Surgical History: No Surgical Hx Reported Past Psychological History: No Psychological Hx Reported Smoking Status: Current every day smoker Past Alcohol Use History: None Reported Past Drug Use History: None Reported Medications and Allergies Home Medications Medication Instructions Recorded Confirmed Type lisinopriL [Zestril] 10 mg PO DAILY #30 tab 11/27/22 01/06/24 Rx Tamsulosin HCl [Flomax] 0.4 mg PO HS 01/06/24 01/06/24 History Allergies Allergy/AdvReac Type Severity Reaction Status Date / Time Sulfa (Sulfonamide Allergy Swelling Verified 01/06/24 11:10 Antibiotics) Physical Exam Vitals: Vital Signs Temp Pulse Resp BP Pulse Ox FiO2 01/08/24 10:00 58 L 16 01/08/24 09:47 75 01/08/24 09:45 57 L 16 01/08/24 09:35 75 01/08/24 09:30 59 L 16 01/08/24 09:15 59 L 16 01/08/24 09:00 57 L 16 01/08/24 08:45 56 L 16 01/08/24 08:30 56 L 16 01/08/24 08:15 56 L 16 01/08/24 08:00 55 L 16 75 01/08/24 07:58 75 01/08/24 07:45 56 L 16 01/08/24 07:30 57 L 16 01/08/24 07:15 56 L 16 01/08/24 07:00 55 L 16 01/08/24 06:45 56 L 16 01/08/24 06:30 57 L 16 01/08/24 06:15 56 L 16 01/08/24 06:14 75 01/08/24 06:00 59 L 16 01/08/24 05:45 57 L 16 01/08/24 05:30 60 16 01/08/24 05:15 60 17 01/08/24 05:00 59 L 17 01/08/24 04:45 60 16 01/08/24 04:30 59 L 17 01/08/24 04:15 57 L 17 90 01/08/24 04:00 98.3 F 57 L 16 90 01/08/24 03:45 57 L 16 01/08/24 03:30 57 L 16 01/08/24 03:25 90 01/08/24 03:15 58 L 16 01/08/24 03:00 57 L 16 114/50 01/08/24 02:45 114/50 01/08/24 02:30 58 L 22 114/50 01/08/24 02:15 58 L 20 114/50 01/08/24 02:00 57 L 18 01/08/24 01:45 58 L 17 01/08/24 01:30 57 L 18 01/08/24 01:15 60 17 01/08/24 01:00 60 17 01/08/24 00:45 60 17 01/08/24 00:33 61 17 01/08/24 00:30 60 18 01/08/24 00:15 61 19 01/08/24 00:00 98.6 F 61 20 90 01/07/24 23:45 62 20 01/07/24 23:30 63 19 01/07/24 23:29 90 01/07/24 23:15 64 19 01/07/24 23:00 64 20 90 01/07/24 22:45 65 20 01/07/24 22:30 65 22 50 L 01/07/24 22:15 66 20 01/07/24 22:00 66 22 90 01/07/24 21:45 67 20 01/07/24 21:30 66 22 01/07/24 21:15 66 22 01/07/24 21:00 66 24 90 01/07/24 20:45 65 24 01/07/24 20:30 64 25 H 01/07/24 20:23 90 01/07/24 20:15 64 26 H 01/07/24 20:00 99.5 F 64 27 H 90 01/07/24 19:45 65 26 H 01/07/24 19:30 64 26 H 01/07/24 19:15 64 26 H 01/07/24 19:00 63 26 H 01/07/24 18:45 62 25 H 01/07/24 18:30 62 24 01/07/24 18:15 62 23 01/07/24 18:00 61 23 01/07/24 17:45 61 23 01/07/24 17:30 63 21 01/07/24 17:15 64 20 01/07/24 17:00 64 20 01/07/24 16:45 67 21 01/07/24 16:30 69 20 01/07/24 16:15 70 20 01/07/24 16:00 99.1 F 70 19 90 01/07/24 15:45 71 20 01/07/24 15:30 71 18 01/07/24 15:15 71 19 01/07/24 15:12 90 01/07/24 15:00 71 19 01/07/24 14:45 71 18 01/07/24 14:30 71 18 01/07/24 14:15 71 18 01/07/24 14:00 70 18 01/07/24 13:45 70 18 01/07/24 13:30 70 18 01/07/24 13:15 70 17 01/07/24 13:00 69 16 01/07/24 12:45 68 17 01/07/24 12:30 66 16 01/07/24 12:15 64 16 01/07/24 12:00 98.4 F 65 16 90 01/07/24 11:48 90 01/07/24 11:45 64 17 01/07/24 11:30 64 17 01/07/24 11:25 90 01/07/24 11:15 64 17 01/07/24 11:00 65 17 01/07/24 10:47 90 01/07/24 10:45 64 17 01/07/24 10:30 65 17 01/07/24 10:15 65 17 Intake and Output 01/07/24 01/08/24 01/08/24 22:59 06:59 14:59 Intake Total 4845.526 8691.427 450.777 Output Total 20 2 0 Balance 0846.661 1211.427 450.777 Intake: IV 936 946 443 CO/CI 40 50 20 Dextrose 5% in Water 1, 800 800 300 000 ml @ 100 mls/hr IV . [id number] [facility] with Sodium Bicarb (1 Meq/ml) 150 ml Rx#:[id number] Pressure Bag 96 96 48 Sodium Chloride 0.9% 1, 75 000 ml @ 75 mls/hr IV . [id number] [facility] Rx#:[id number] Intake, IV Titration 383.239 354.427 7.777 Amount EPINEPHrine 4 mg In 98.481 Dextrose 5% in Water 250 ml @ 0.03 MCG/KG/MIN 8. 291 mls/hr IV .Q24H [facility] Rx#:[id number] Heparin Sod,Pork in 0.45% 75.456 58.223 NaCl 25,000 unit In 0.45 % NaCl 1 250ml.bag @ 12 UNITS/KG/HR 8.844 mls/hr IV .Q24H [facility] Rx#: [id number] Lidocaine-D5w Pmx 2G/ 208.75 250Ml 2,000 mg In Dextrose/Water 1 250ml. bag @ 2 MG/MIN 15 mls/hr IV .[id number] [facility] Rx#: [id number] Norepinephrine 32 mg In 23.528 Sodium Chloride 0.9% 218 ml @ 0.24 MCG/KG/MIN 8. 291 mls/hr IV .Q24H [facility] Rx#:[id number] Vasopressin 60 unit In 85.221 45.925 7.777 Sodium Chloride 0.9% 150 ml @ 0.03 UNITS/MIN 4.59 mls/hr IV .Q24H [facility] Rx#: [id number] propofoL 1,000 mg In 100.553 41.529 Empty Bag 1 bag @ 15 MCG/ KG/MIN 6.633 mls/hr IV . [id number] [facility] Rx#:[id number] Output: Urine 20 2 0 Other: Voiding Method Indwelling Catheter Indwelling Catheter Indwelling Catheter Weight 79.333 kg ABP, PAP, CO, CI - Last 8 Hours Arterial Blood Pressure 94/64 Arterial Blood Pressure 94/65 Arterial Blood Pressure 95/65 Arterial Blood Pressure 93/65 Arterial Blood Pressure 92/64 Arterial Blood Pressure 91/64 Arterial Blood Pressure 90/63 Arterial Blood Pressure 86/62 Arterial Blood Pressure 88/64 Arterial Blood Pressure 91/66 Arterial Blood Pressure 89/65 Arterial Blood Pressure 89/65 Arterial Blood Pressure 85/62 Arterial Blood Pressure 83/61 Arterial Blood Pressure 82/60 Arterial Blood Pressure 80/59 Arterial Blood Pressure 83/59 Arterial Blood Pressure 81/58 Arterial Blood Pressure 81/58 Arterial Blood Pressure 81/58 Arterial Blood Pressure 82/58 Arterial Blood Pressure 83/59 Arterial Blood Pressure 85/62 Arterial Blood Pressure 89/66 Arterial Blood Pressure 89/66 Arterial Blood Pressure 87/66 Arterial Blood Pressure 85/65 Arterial Blood Pressure 85/64 Arterial Blood Pressure 86/59 Arterial Blood Pressure 82/64 Arterial Blood Pressure 80/63 Pulmonary Artery Pressure 34/19 Pulmonary Artery Pressure 35/19 Pulmonary Artery Pressure 35/20 Pulmonary Artery Pressure 36/20 Pulmonary Artery Pressure 35/19 Pulmonary Artery Pressure 35/19 Pulmonary Artery Pressure 35/19 Pulmonary Artery Pressure 34/20 Pulmonary Artery Pressure 34/20 Pulmonary Artery Pressure 35/20 Pulmonary Artery Pressure 34/21 Pulmonary Artery Pressure 34/21 Pulmonary Artery Pressure 33/20 Pulmonary Artery Pressure 34/20 Pulmonary Artery Pressure 33/19 Pulmonary Artery Pressure 32/19 Pulmonary Artery Pressure 31/15 Pulmonary Artery Pressure 33/18 Pulmonary Artery Pressure 34/18 Pulmonary Artery Pressure 35/18 Pulmonary Artery Pressure 36/19 Pulmonary Artery Pressure 36/19 Pulmonary Artery Pressure 36/20 Pulmonary Artery Pressure 36/21 Pulmonary Artery Pressure 37/21 Pulmonary Artery Pressure 36/22 Pulmonary Artery Pressure 36/22 Pulmonary Artery Pressure 35/21 Pulmonary Artery Pressure 35/19 Pulmonary Artery Pressure 33/20 Pulmonary Artery Pressure 35/21 Pulmonary Artery Pressure 34/21 Cardiac Output 1.8 Cardiac Output 1.8 Cardiac Output 1.8 Cardiac Output 1.8 Cardiac Output 1.8 Cardiac Output 1.8 Cardiac Output 1.8 Cardiac Output 1.8 Cardiac Output 1.8 Cardiac Output 2 Cardiac Output 2 Cardiac Output 2.0 Cardiac Output 1.9 Cardiac Index 1 Cardiac Index 1 Cardiac Index 1 Cardiac Index 1 Cardiac Index 1 Cardiac Index 1 Cardiac Index 1 Cardiac Index 1 Cardiac Index 1 Cardiac Index 1.1 Cardiac Index 1.1 Cardiac Index 1.1 Cardiac Index 1.1 Results - Lab Results Most recent lab results ABG pH 7.49 (7.35-7.45) H 01/08/24 06:10 ABG pCO2 38 mmHg (35-45) 01/08/24 06:10 ABG pO2 196 mmHg (83-108) H 01/08/24 06:10 ABG HCO3 29 mmol/L (21-25) H 01/08/24 06:10 ABG O2 Saturation 99.7 % (94-97) H 01/08/24 06:10 Calcium 7.1 mg/dL (8.4-10.2) L 01/08/24 03:00 Phosphorus 6.4 mg/dL (2.5-4.5) H 01/08/24 03:00 Magnesium 2.5 mg/dL (1.6-2.3) H 01/08/24 03:00 01/08/24 03:00 01/08/24 03:00 Assessment and Plan Plan: Assessment: 1. Acute kidney injury secondary to ATN secondary to cardiac arrest. Baseline creatinine near 1 and is up to 3.86 today. Oliguric. 2. Status post cardiac arrest including V-fib arrest requiring defibrillator. 3. Coronary artery disease status post mid LAD stent placement on January 06, 2024. 4. Metabolic acidosis secondary to acute kidney injury improved with bicarb drip. 5. Acute hypoxic respiratory failure. Intubated. 6. Cardiogenic shock. Currently off vasopressors. Plan: Change bicarb drip to normal saline. Currently undergoing EEG. With worsening renal function, oliguria, initiate renal replacement therapy if family agreeable. Comfort measures will also be discussed. Thank you for the consultation. I will continue to follow the patient with you during his hospital stay.
[2024-01-08] MEDS ORDERED: SODIUM BICARB 8.4% 50 ML SYR (1 MEQ/ML) ONE (10:58)
[2024-01-08] MEDS ORDERED: CALCIUM CHLORIDE 100 MG/ML 10 ML SYRINGE ONE (10:58)
[2024-01-08] MEDS ORDERED: MAGNESIUM SULFATE SYG 4.06 MEQ/ML SYRINGE ONE (10:58)
[2024-01-08] MEDS ORDERED: AMIODARONE 50 MG/ML 3 ML VIAL IV ONE (10:58)
[2024-01-08] MEDS ORDERED: EPINEPHrine 10 ML SYRINGE (0.1 MG/ML) ONE (10:58)
[2024-01-08] MEDS ORDERED: DEXTROSE 5% IN WATER 50 ML BAG ONE (10:58)
[2024-01-08] MEDS: SODIUM CHLORIDE 0.9% 1,000 ML IV SCH (11:10)
--- NOTE | 2024-01-08 11:11 | P.PN ---
Subjective Progress Note Date: 01/08/24 Patient is a 63-year-old male with known hypertension and prostate disorder who presented to the emergency department as CPR in progress. From review of EMS records the patient suffered a cardiac arrest at approximately 950 and they arrived within to fire department administering CPR third 3 defibrillations. They obtained ROSC at 1032 and proceeded with transportation to our facility patient was intubated in the field. There was concerns for possible ST segment elevated myocardial infarction on field EKG. During transportation to the emergency department the patient again lost pulses and CPR was administered. The lumen central line placed and was intubated with confirmed ET tube danny cement. In the emergency department he was noted to remain hypotensive and started on Levophed. After ROSC had been obtained he was transferred to the cardiac [facility] where he underwent 1 stent to the mid LAD. During his stay in [facility] he again went into V-fib requiring defibrillation x 2, amiodarone drip was started and an Impella was placed. He was subsequently transferred to the ICU. The night after admission he had decreasing blood pressures and urine output. He ultimately was started on epinephrine drip in addition to norepinephrine and lidocaine was added due to arrhythmia. He was noted to have significant hemolysis associated with his Impella device, however every time they attempted to wean Impella support patient became hypotensive. By the morning of 01/06 he was noted to have oliguric acute kidney injury, ischemic hepatitis, and continued cardiogenic shock. Nephrology also following. Patient getting EEG to help with further prognostication. Neurology also consulted. Patient seen and examined at bedside. Intubated. Per nurse, no significant neurofunction since being off of sedation. Vital signs reviewed General: Intubated Cardiovascular: S1S2 reg, no murmur Lungs: Course bs bilateral, no rhonchi, no rales, no accessory muscle use Abdominal: Soft, nontender to palpation, no guarding Ext: No gross muscle atrophy, no edema b/l lower extremities, no contractures Neuro: No significant meaningful neuro activity Psych: Unable to assess Assessment/Plan: Out of hospital V fib adn PEA arrest: Total down time is greater than 60 minutes Multiorgan failure NSTEMI s/p PCI to the LAD VF storm Cardiogenic shock s/p Impella Iscemic cardiomyopathy with ejection fraction 15 to 20% lactic acidosis Acute hypoxic, vent dependent respiratory failure Anuric acute kidney injury, suspect ATN Ischemic hepatitis Impella related hemolysis vs DIC P. A. fib Probable anoxic encephalopathy Nephrology note reviewed, will likely need renal replacement therapy if renal function continues to worsen drip changed to normal saline 75 cc an hour -Cardiology, MICU following -Wean levo, vaso, as able -Lidocaine drip -Heparin drip - Aspirin 81 mg, [id number] mg twice daily, Lipitor 40 mg at night -High probability of anoxic injury. EEG pending, neurology consulted -Continue to monitor fibrinogen and LDH Hyperglycemia without diabetes -Sliding scale insulin every 6 hours, follow blood sugars -A1c 5.7 Nicotine dependency HX HTN Imaging: CXR- conitnued pulm vascular congestion Limited echo- severe LV dysfunction with EF 15-20% Data Review: WBC 14.4, hemoglobin 10.9, platelet 98, pH 7.49, pCO2 38, pO2 196, lactic acid 4.3, sodium 135, creatinine 3.86, magnesium 2.5, total bili 1.9, AST 12,000, ALT 8000, LDH greater than 10,000. Will attempt to talk to family again today with regards to further goals of care discussion. Given poor prognosis, patient should be considered for comfort care measures. DVT prophylaxis: Heparin gtt Anticipated discharge date: Poor overall prognosis Anticipated discharge place: Poor overall prognosis Objective - Vital Signs Vital signs: Vital Signs Temp 98.3 F 01/08/24 04:00 Pulse 58 L 01/08/24 11:00 Resp 16 01/08/24 11:00 BP 114/50 01/08/24 03:00 Pulse Ox 50 L 01/07/24 22:30 FiO2 75 01/08/24 09:47 Intake & Output 01/07/24 01/08/24 01/08/24 18:59 06:59 18:59 Intake Total 3630.152 8484.576 537.777 Output Total 35 12 0 Balance 3218.495 3383.576 537.777 Weight 79.333 kg Intake: IV 1278 1414 530 CO/CI 70 70 20 Dextrose 5% in Water 1, 1100 1200 300 000 ml @ 100 mls/hr IV . [id number] [facility] with Sodium Bicarb (1 Meq/ml) 150 ml Rx#:[id number] Pressure Bag 108 144 60 Sodium Chloride 0.9% 1, 150 000 ml @ 75 mls/hr IV . [id number] [facility] Rx#:[id number] Intake, IV Titration 655.027 521.576 7.777 Amount EPINEPHrine 4 mg In 79.455 19.026 Dextrose 5% in Water 250 ml @ 0.03 MCG/KG/MIN 8. 291 mls/hr IV .Q24H [facility] [place] Rx#:[id number] Heparin Sod,Pork in 0.45% 132.697 94.213 NaCl 25,000 unit In 0.45 % NaCl 1 250ml.bag @ 12 UNITS/KG/HR 8.844 mls/hr IV .Q24H [facility] Rx#: [id number] Lidocaine-D5w Pmx 2G/ 192.25 208.75 250Ml 2,000 mg In Dextrose/Water 1 250ml. bag @ 2 MG/MIN 15 mls/hr IV .[id number] [facility] [place] Rx#: [id number] Norepinephrine 32 mg In 80.051 Sodium Chloride 0.9% 218 ml @ 0.03 MCG/KG/MIN 1.23 mls/hr IV .Q24H [facility] Rx#: [id number] Norepinephrine 32 mg In 11.948 11.580 Sodium Chloride 0.9% 218 ml @ 0.24 MCG/KG/MIN 8. 291 mls/hr IV .Q24H [facility] [place] Rx#:[id number] Vasopressin 60 unit In 85.221 45.925 7.777 Sodium Chloride 0.9% 150 ml @ 0.03 UNITS/MIN 4.59 mls/hr IV .Q24H [facility] [place] Rx#: [id number] propofoL 1,000 mg In 73.405 142.082 Empty Bag 1 bag @ 15 MCG/ KG/MIN 6.633 mls/hr IV . Q15H5M [facility] [place] Rx#:[id number] Output: Urine 35 12 0 Other: Voiding Method Indwelling Catheter Indwelling Catheter Indwelling Catheter ABP, PAP, CO, CI - Last Documented Arterial Blood Pressure 94/65 Pulmonary Artery Pressure 36/21 Cardiac Output 1.8 Cardiac Index 1 - Labs CBC & Chem 7: 01/08/24 03:00 01/08/24 03:00 Labs: Abnormal Lab Results - Last 24 Hours (Table) 01/07/24 01/07/24 01/07/24 Range/Units 11:48 12:21 15:03 WBC (3.8-10.6) k/uL RBC (4.30-5.90) m/uL Hgb (13.0-17.5) gm/dL Hct (39.0-53.0) % Plt Count (150-450) k/uL Neutrophils # (1.3-7.7) k/uL APTT 31.8 H (22.0-30.0) sec ABG pH (7.35-7.45) ABG pO2 (83-108) mmHg ABG HCO3 (21-25) mmol/L ABG Total CO2 (19-24) mmol/L ABG O2 Saturation (94-97) % ABG Lactic Acid 11.5 H* (0.5-1.6) mmol/L Sodium (137-145) mmol/L Potassium (3.5-5.1) mmol/L Carbon Dioxide (22-30) mmol/L BUN (9-20) mg/dL Creatinine (0.66-1.25) mg/dL Glucose (74-99) mg/dL POC Glucose (mg/dL) 171 H (70-110) mg/dL Plasma Lactic Acid Alexander (0.7-2.0) mmol/L Calcium (8.4-10.2) mg/dL Phosphorus (2.5-4.5) mg/dL Magnesium (1.6-2.3) mg/dL Total Bilirubin (0.2-1.3) mg/dL AST (17-59) U/L ALT (4-49) U/L Lactate Dehydrogenase (120-246) U/L Total Protein (6.3-8.2) g/dL Albumin (3.5-5.0) g/dL 01/07/24 01/07/24 01/07/24 Range/Units 15:03 15:03 16:11 WBC 20.7 H (3.8-10.6) k/uL RBC (4.30-5.90) m/uL Hgb 12.6 L (13.0-17.5) gm/dL Hct (39.0-53.0) % Plt Count (150-450) k/uL Neutrophils # (1.3-7.7) k/uL APTT (22.0-30.0) sec ABG pH (7.35-7.45) ABG pO2 (83-108) mmHg ABG HCO3 (21-25) mmol/L ABG Total CO2 (19-24) mmol/L ABG O2 Saturation (94-97) % ABG Lactic Acid (0.5-1.6) mmol/L Sodium (137-145) mmol/L Potassium (3.5-5.1) mmol/L Carbon Dioxide (22-30) mmol/L BUN (9-20) mg/dL Creatinine (0.66-1.25) mg/dL Glucose (74-99) mg/dL POC Glucose (mg/dL) (70-110) mg/dL Plasma Lactic Acid Alexander 9.3 H* (0.7-2.0) mmol/L Calcium (8.4-10.2) mg/dL Phosphorus (2.5-4.5) mg/dL Magnesium (1.6-2.3) mg/dL Total Bilirubin (0.2-1.3) mg/dL AST (17-59) U/L ALT (4-49) U/L Lactate Dehydrogenase >75590 H (120-246) U/L Total Protein (6.3-8.2) g/dL Albumin (3.5-5.0) g/dL 01/07/24 01/07/24 01/07/24 Range/Units 17:24 18:00 19:03 WBC (3.8-10.6) k/uL RBC (4.30-5.90) m/uL Hgb (13.0-17.5) gm/dL Hct (39.0-53.0) % Plt Count (150-450) k/uL Neutrophils # (1.3-7.7) k/uL APTT (22.0-30.0) sec ABG pH (7.35-7.45) ABG pO2 (83-108) mmHg ABG HCO3 (21-25) mmol/L ABG Total CO2 (19-24) mmol/L ABG O2 Saturation (94-97) % ABG Lactic Acid 6.5 H* (0.5-1.6) mmol/L Sodium (137-145) mmol/L Potassium (3.5-5.1) mmol/L Carbon Dioxide (22-30) mmol/L BUN (9-20) mg/dL Creatinine (0.66-1.25) mg/dL Glucose (74-99) mg/dL POC Glucose (mg/dL) 204 H 151 H (70-110) mg/dL Plasma Lactic Acid Alexander (0.7-2.0) mmol/L Calcium (8.4-10.2) mg/dL Phosphorus (2.5-4.5) mg/dL Magnesium (1.6-2.3) mg/dL Total Bilirubin (0.2-1.3) mg/dL AST (17-59) U/L ALT (4-49) U/L Lactate Dehydrogenase (120-246) U/L Total Protein (6.3-8.2) g/dL Albumin (3.5-5.0) g/dL 01/07/24 01/07/24 01/07/24 Range/Units 20:42 20:42 20:42 WBC 16.2 H (3.8-10.6) k/uL RBC 4.15 L (4.30-5.90) m/uL Hgb 12.2 L (13.0-17.5) gm/dL Hct 36.5 L (39.0-53.0) % Plt Count 139 L (150-450) k/uL Neutrophils # 14.2 H (1.3-7.7) k/uL APTT 38.1 H (22.0-30.0) sec ABG pH (7.35-7.45) ABG pO2 (83-108) mmHg ABG HCO3 (21-25) mmol/L ABG Total CO2 (19-24) mmol/L ABG O2 Saturation (94-97) % ABG Lactic Acid (0.5-1.6) mmol/L Sodium 136 L (137-145) mmol/L Potassium 5.3 H (3.5-5.1) mmol/L Carbon Dioxide 20 L (22-30) mmol/L BUN 33 H (9-20) mg/dL Creatinine 3.43 H (0.66-1.25) mg/dL Glucose 142 H (74-99) mg/dL POC Glucose (mg/dL) (70-110) mg/dL Plasma Lactic Acid Alexander (0.7-2.0) mmol/L Calcium 7.4 L (8.4-10.2) mg/dL Phosphorus (2.5-4.5) mg/dL Magnesium (1.6-2.3) mg/dL Total Bilirubin (0.2-1.3) mg/dL AST (17-59) U/L ALT (4-49) U/L Lactate Dehydrogenase (120-246) U/L Total Protein (6.3-8.2) g/dL Albumin (3.5-5.0) g/dL 01/07/24 01/07/24 01/07/24 Range/Units 22:25 23:44 23:45 WBC (3.8-10.6) k/uL RBC (4.30-5.90) m/uL Hgb (13.0-17.5) gm/dL Hct (39.0-53.0) % Plt Count (150-450) k/uL Neutrophils # (1.3-7.7) k/uL APTT (22.0-30.0) sec ABG pH (7.35-7.45) ABG pO2 (83-108) mmHg ABG HCO3 (21-25) mmol/L ABG Total CO2 (19-24) mmol/L ABG O2 Saturation (94-97) % ABG Lactic Acid 5.5 H* (0.5-1.6) mmol/L Sodium (137-145) mmol/L Potassium (3.5-5.1) mmol/L Carbon Dioxide (22-30) mmol/L BUN (9-20) mg/dL Creatinine (0.66-1.25) mg/dL Glucose (74-99) mg/dL POC Glucose (mg/dL) 150 H (70-110) mg/dL Plasma Lactic Acid Alexander (0.7-2.0) mmol/L Calcium (8.4-10.2) mg/dL Phosphorus (2.5-4.5) mg/dL Magnesium (1.6-2.3) mg/dL Total Bilirubin (0.2-1.3) mg/dL AST (17-59) U/L ALT (4-49) U/L Lactate Dehydrogenase >69570 H (120-246) U/L Total Protein (6.3-8.2) g/dL Albumin (3.5-5.0) g/dL 01/08/24 01/08/24 01/08/24 Range/Units 03:00 03:00 03:00 WBC 14.4 H (3.8-10.6) k/uL RBC 3.58 L (4.30-5.90) m/uL Hgb 10.9 L (13.0-17.5) gm/dL Hct 31.1 L (39.0-53.0) % Plt Count 98 L (150-450) k/uL Neutrophils # (1.3-7.7) k/uL APTT 40.4 H (22.0-30.0) sec ABG pH (7.35-7.45) ABG pO2 (83-108) mmHg ABG HCO3 (21-25) mmol/L ABG Total CO2 (19-24) mmol/L ABG O2 Saturation (94-97) % ABG Lactic Acid (0.5-1.6) mmol/L Sodium 135 L (137-145) mmol/L Potassium (3.5-5.1) mmol/L Carbon Dioxide (22-30) mmol/L BUN 40 H (9-20) mg/dL Creatinine 3.86 H (0.66-1.25) mg/dL Glucose 128 H (74-99) mg/dL POC Glucose (mg/dL) (70-110) mg/dL Plasma Lactic Acid Alexander (0.7-2.0) mmol/L Calcium 7.1 L (8.4-10.2) mg/dL Phosphorus 6.4 H (2.5-4.5) mg/dL Magnesium 2.5 H (1.6-2.3) mg/dL Total Bilirubin 1.9 H (0.2-1.3) mg/dL AST 70160 H (17-59) U/L ALT 7935 H (4-49) U/L Lactate Dehydrogenase (120-246) U/L Total Protein 4.3 L (6.3-8.2) g/dL Albumin 2.2 L (3.5-5.0) g/dL 01/08/24 01/08/24 01/08/24 Range/Units 03:00 06:00 06:10 WBC (3.8-10.6) k/uL RBC (4.30-5.90) m/uL Hgb (13.0-17.5) gm/dL Hct (39.0-53.0) % Plt Count (150-450) k/uL Neutrophils # (1.3-7.7) k/uL APTT (22.0-30.0) sec ABG pH 7.49 H (7.35-7.45) ABG pO2 196 H (83-108) mmHg ABG HCO3 29 H (21-25) mmol/L ABG Total CO2 30 H (19-24) mmol/L ABG O2 Saturation 99.7 H (94-97) % ABG Lactic Acid 4.3 H* (0.5-1.6) mmol/L Sodium (137-145) mmol/L Potassium (3.5-5.1) mmol/L Carbon Dioxide (22-30) mmol/L BUN (9-20) mg/dL Creatinine (0.66-1.25) mg/dL Glucose (74-99) mg/dL POC Glucose (mg/dL) (70-110) mg/dL Plasma Lactic Acid Alexander (0.7-2.0) mmol/L Calcium (8.4-10.2) mg/dL Phosphorus (2.5-4.5) mg/dL Magnesium (1.6-2.3) mg/dL Total Bilirubin (0.2-1.3) mg/dL AST (17-59) U/L ALT (4-49) U/L Lactate Dehydrogenase >46607 H (120-246) U/L Total Protein (6.3-8.2) g/dL Albumin (3.5-5.0) g/dL Microbiology - Last 24 Hours (Table) 01/06/24 20:27 Gram Stain - Preliminary Sputum
[2024-01-08 11:38] LABS: Glucose,Whole Blood 85 mg/dL (70-110)
[2024-01-08 11:43] VITALS: BMI 28.2
--- NOTE | 2024-01-08 12:16 | P.PN ---
Subjective Progress Note Date: 01/08/24 Principal diagnosis: Cardiogenic shock. Pulmonary consult dated January 06, 2024. 63-year-old male who had a [id number] cardiac arrest. The patient apparently had not been complaining of anything before the arrest. He apparently was down in the basement doing laundry, when the family heard him collapse. He apparently was unresponsive without pulses. CPR was initiated by the family, and when the paramedics arrived, he apparently was defibrillated 5 times, and, was intubated at the scene. In the route, he lost pulses again, and apparently was in PEA. He apparently was resuscitated according to ACLS guidelines. The patient was further resuscitated in the emergency department, and apparently lost his pulse numerous times, with continuation of CPR. The patient is seen in the intensive care unit. He apparently was here in the hospital, in mid November, brought in because he was not feeling well, diagnosed with hypertension, and sent home on a pill for hypertension. I believe he was on both Flomax, and lisinopril. The patient apparently has not seen a doctor in many years. He apparently was a tobacco user. The patient is seen in the intensive care unit. He is currently vented. Ventilator settings include volume assist-control, rate 16, tidal volume 450, FiO2 100%, PEEP of 8. The patient is on amiodarone at 1 mg/min, and norepinephrine at 0.5 mcg/kg/min. We placed a right radial art line. The patient ended up going to the catheterization laboratory, was found to have a 100% LAD lesion, was stented, and an Impella device was placed. Brain CT showed nothing acute. Chest x-ray showed an endotracheal tube about 3 cm above the tracheal wendi. CTA was negative for pulmonary embolism, but did show some groundglass changes, potentially consistent with pneumonia or fluid overload. Repeat chest x-ray shows primarily upper lobe airspace disease. Laboratory data includes a white count 10.2, hemoglobin 14.1, hematocrit 45.5, and a platelet count of 164,000. Sodium 140, potassium 4.1, chlorides 111, CO2 17, anion gap 12, BUN 14, and creatinine 1.03. Lactic acid 7.9. Calcium 8. Troponin 0.086. Albumin is 3. Glucose is 283. Progress note dated January 07, 2024. 63-year-old male, with an [id number] cardiac arrest, prolonged downtime, and prolonged cardiopulmonary resuscitation. The patient is currently seen in the intensive care unit. He remains on the ventilator. Settings include volume assist-control, rate 16, tidal volume 450, FiO2 100%, to be reduced to 90%, and PEEP of 8. Blood gases on 100% show pO2 142, pCO2 29, pH is 7.28. The patient is on propofol at 30 mcg/kg/min, norepinephrine at 35 mcg/min, lidocaine at 2 mcg/min, vasopressin at 0.03 units/min, amiodarone 0.5 mg/min, epinephrine drip at 0.03 mcg/kg/min, D5W with 3 ampoules of sodium bicarb at 100 cc an hour. In addition, the patient is on a heparin drip via weight-based protocol. Laboratory data includes a white count 16.6, hemoglobin 13.3, hematocrit 41.4, and a platelet count of 176,000. Repeat blood gases show pO2 of 99, pCO2 of 40, pH is 7.22. Sodium 138, potassium 4.3, chlorides 114, CO2 10, anion gap 14, BUN 23, creatinine 2.47. Calcium 8.2, magnesium 3.0. AST is 1399. ALT 423. Albumin is 2.7. LDH is 3106. Chest x-ray is relatively stable. Progress note dated January 08, 2024. 63-year-old male, with a [id number] cardiac arrest, prolonged resuscitation, and eventual return of spontaneous circulation. The patient is seen in the intensive care unit, room 255. He remains on the ventilator. Ventilator settings include volume assist-control, rate 16, tidal volume 450, FiO2 75%, PEEP of 8. Blood gases show pO2 196, CO2 is 38, pH 7.49. Those blood gases were done on 90%. He is on D5W with 3 ampoules of sodium bicarb at 100 cc an hour, and lidocaine drip at 2 mg/min. He is getting saline at KVO. The Impella device is remaining. The patient is now a DO NOT RESUSCITATE patient. White count 14.4, hemoglobin 10.9, hematocrit 31.1, platelet count 98,000. Sodium 135, potassium 4.9, chlorides 103, CO2 24, BUN 40, creatinine 3.86. Glucose is 85. Calcium 7.1, phosphorus 6.4, magnesium 2.5. AST is 12,342. ALT is 7935. LDH is greater than 10,000. Albumin is 2.2. Cultures are thus far negative. Chest x-ray shows an unchanged chest x-ray from yesterday. Objective - Vital Signs Vital signs: Vital Signs Temp 98.3 F 01/08/24 04:00 Pulse 58 L 01/08/24 11:00 Resp 16 01/08/24 11:00 BP 114/50 01/08/24 03:00 Pulse Ox 50 L 01/07/24 22:30 FiO2 75 01/08/24 11:59 Intake & Output 01/07/24 01/08/24 01/08/24 18:59 06:59 18:59 Intake Total 1092.126 9289.576 537.777 Output Total 35 12 0 Balance 1445.030 6798.576 537.777 Weight 79.333 kg 79.333 kg Intake: IV 1278 1414 530 CO/CI 70 70 20 Dextrose 5% in Water 1, 1100 1200 300 000 ml @ 100 mls/hr IV . [id number] [facility] with Sodium Bicarb (1 Meq/ml) 150 ml Rx#:[id number] Pressure Bag 108 144 60 Sodium Chloride 0.9% 1, 150 000 ml @ 75 mls/hr IV . [id number] [facility] Rx#:[id number] Intake, IV Titration 655.027 521.576 7.777 Amount EPINEPHrine 4 mg In 79.455 19.026 Dextrose 5% in Water 250 ml @ 0.03 MCG/KG/MIN 8. 291 mls/hr IV .Q24H [facility] Rx#:[id number] Heparin Sod,Pork in 0.45% 132.697 94.213 NaCl 25,000 unit In 0.45 % NaCl 1 250ml.bag @ 12 UNITS/KG/HR 8.844 mls/hr IV .Q24H [facility] Rx#: [id number] Lidocaine-D5w Pmx 2G/ 192.25 208.75 250Ml 2,000 mg In Dextrose/Water 1 250ml. bag @ 2 MG/MIN 15 mls/hr IV .[id number] [facility] Rx#: [id number] Norepinephrine 32 mg In 80.051 Sodium Chloride 0.9% 218 ml @ 0.03 MCG/KG/MIN 1.23 mls/hr IV .Q24H ONE Rx#: [id number] Norepinephrine 32 mg In 11.948 11.580 Sodium Chloride 0.9% 218 ml @ 0.24 MCG/KG/MIN 8. 291 mls/hr IV .Q24H [facility] Rx#:[id number] Vasopressin 60 unit In 85.221 45.925 7.777 Sodium Chloride 0.9% 150 ml @ 0.03 UNITS/MIN 4.59 mls/hr IV .Q24H [facility] Rx#: [id number] propofoL 1,000 mg In 73.405 142.082 Empty Bag 1 bag @ 15 MCG/ KG/MIN 6.633 mls/hr IV . [id number] [facility] Rx#:[id number] Output: Urine 35 12 0 Other: Voiding Method Indwelling Catheter Indwelling Catheter Indwelling Catheter ABP, PAP, CO, CI - Last Documented Arterial Blood Pressure 94/65 Pulmonary Artery Pressure 36/21 Cardiac Output 1.8 Cardiac Index 1 - Exam No acute distress, sedated, with an orally placed endotracheal tube. HEENT examination is grossly unremarkable. Neck supple. Full range of motion. No adenopathy thyromegaly or neck vein distention. Cardiovascular examination reveals regular rhythm rate. S1-S2 normal. No S3 or S4. No discernible murmur noted. Heart rate 60 bpm. Heart sounds distant. Lungs reveal coarse rhonchi. Breath sounds equal. No wheezes. Few scattered crackles. Breath sounds equal. Saturations are 95 %. Abdomen soft without bowel sounds. No masses or tenderness. Extremities are intact. No cyanosis clubbing or edema. Skin is without rash or lesion. Neurologic examination cannot be assessed. - Labs CBC & Chem 7: 01/08/24 03:00 01/08/24 03:00 Labs: Abnormal Lab Results - Last 24 Hours (Table) 01/07/24 01/07/24 01/07/24 Range/Units 12:21 15:03 15:03 WBC (3.8-10.6) k/uL RBC (4.30-5.90) m/uL Hgb (13.0-17.5) gm/dL Hct (39.0-53.0) % Plt Count (150-450) k/uL Neutrophils # (1.3-7.7) k/uL APTT 31.8 H (22.0-30.0) sec ABG pH (7.35-7.45) ABG pO2 (83-108) mmHg ABG HCO3 (21-25) mmol/L ABG Total CO2 (19-24) mmol/L ABG O2 Saturation (94-97) % ABG Lactic Acid 11.5 H* (0.5-1.6) mmol/L Sodium (137-145) mmol/L Potassium (3.5-5.1) mmol/L Carbon Dioxide (22-30) mmol/L BUN (9-20) mg/dL Creatinine (0.66-1.25) mg/dL Glucose (74-99) mg/dL POC Glucose (mg/dL) (70-110) mg/dL Plasma Lactic Acid Alexander (0.7-2.0) mmol/L Calcium (8.4-10.2) mg/dL Phosphorus (2.5-4.5) mg/dL Magnesium (1.6-2.3) mg/dL Total Bilirubin (0.2-1.3) mg/dL AST (17-59) U/L ALT (4-49) U/L Lactate Dehydrogenase >51829 H (120-246) U/L Total Protein (6.3-8.2) g/dL Albumin (3.5-5.0) g/dL 01/07/24 01/07/24 01/07/24 Range/Units 15:03 16:11 17:24 WBC 20.7 H (3.8-10.6) k/uL RBC (4.30-5.90) m/uL Hgb 12.6 L (13.0-17.5) gm/dL Hct (39.0-53.0) % Plt Count (150-450) k/uL Neutrophils # (1.3-7.7) k/uL APTT (22.0-30.0) sec ABG pH (7.35-7.45) ABG pO2 (83-108) mmHg ABG HCO3 (21-25) mmol/L ABG Total CO2 (19-24) mmol/L ABG O2 Saturation (94-97) % ABG Lactic Acid (0.5-1.6) mmol/L Sodium (137-145) mmol/L Potassium (3.5-5.1) mmol/L Carbon Dioxide (22-30) mmol/L BUN (9-20) mg/dL Creatinine (0.66-1.25) mg/dL Glucose (74-99) mg/dL POC Glucose (mg/dL) 204 H (70-110) mg/dL Plasma Lactic Acid Alexander 9.3 H* (0.7-2.0) mmol/L Calcium (8.4-10.2) mg/dL Phosphorus (2.5-4.5) mg/dL Magnesium (1.6-2.3) mg/dL Total Bilirubin (0.2-1.3) mg/dL AST (17-59) U/L ALT (4-49) U/L Lactate Dehydrogenase (120-246) U/L Total Protein (6.3-8.2) g/dL Albumin (3.5-5.0) g/dL 01/07/24 01/07/24 01/07/24 Range/Units 18:00 19:03 20:42 WBC (3.8-10.6) k/uL RBC (4.30-5.90) m/uL Hgb (13.0-17.5) gm/dL Hct (39.0-53.0) % Plt Count (150-450) k/uL Neutrophils # (1.3-7.7) k/uL APTT 38.1 H (22.0-30.0) sec ABG pH (7.35-7.45) ABG pO2 (83-108) mmHg ABG HCO3 (21-25) mmol/L ABG Total CO2 (19-24) mmol/L ABG O2 Saturation (94-97) % ABG Lactic Acid 6.5 H* (0.5-1.6) mmol/L Sodium (137-145) mmol/L Potassium (3.5-5.1) mmol/L Carbon Dioxide (22-30) mmol/L BUN (9-20) mg/dL Creatinine (0.66-1.25) mg/dL Glucose (74-99) mg/dL POC Glucose (mg/dL) 151 H (70-110) mg/dL Plasma Lactic Acid Alexander (0.7-2.0) mmol/L Calcium (8.4-10.2) mg/dL Phosphorus (2.5-4.5) mg/dL Magnesium (1.6-2.3) mg/dL Total Bilirubin (0.2-1.3) mg/dL AST (17-59) U/L ALT (4-49) U/L Lactate Dehydrogenase (120-246) U/L Total Protein (6.3-8.2) g/dL Albumin (3.5-5.0) g/dL 01/07/24 01/07/24 01/07/24 Range/Units 20:42 20:42 22:25 WBC 16.2 H (3.8-10.6) k/uL RBC 4.15 L (4.30-5.90) m/uL Hgb 12.2 L (13.0-17.5) gm/dL Hct 36.5 L (39.0-53.0) % Plt Count 139 L (150-450) k/uL Neutrophils # 14.2 H (1.3-7.7) k/uL APTT (22.0-30.0) sec ABG pH (7.35-7.45) ABG pO2 (83-108) mmHg ABG HCO3 (21-25) mmol/L ABG Total CO2 (19-24) mmol/L ABG O2 Saturation (94-97) % ABG Lactic Acid (0.5-1.6) mmol/L Sodium 136 L (137-145) mmol/L Potassium 5.3 H (3.5-5.1) mmol/L Carbon Dioxide 20 L (22-30) mmol/L BUN 33 H (9-20) mg/dL Creatinine 3.43 H (0.66-1.25) mg/dL Glucose 142 H (74-99) mg/dL POC Glucose (mg/dL) (70-110) mg/dL Plasma Lactic Acid Alexander (0.7-2.0) mmol/L Calcium 7.4 L (8.4-10.2) mg/dL Phosphorus (2.5-4.5) mg/dL Magnesium (1.6-2.3) mg/dL Total Bilirubin (0.2-1.3) mg/dL AST (17-59) U/L ALT (4-49) U/L Lactate Dehydrogenase >59967 H (120-246) U/L Total Protein (6.3-8.2) g/dL Albumin (3.5-5.0) g/dL 01/07/24 01/07/24 01/08/24 Range/Units 23:44 23:45 03:00 WBC (3.8-10.6) k/uL RBC (4.30-5.90) m/uL Hgb (13.0-17.5) gm/dL Hct (39.0-53.0) % Plt Count (150-450) k/uL Neutrophils # (1.3-7.7) k/uL APTT 40.4 H (22.0-30.0) sec ABG pH (7.35-7.45) ABG pO2 (83-108) mmHg ABG HCO3 (21-25) mmol/L ABG Total CO2 (19-24) mmol/L ABG O2 Saturation (94-97) % ABG Lactic Acid 5.5 H* (0.5-1.6) mmol/L Sodium (137-145) mmol/L Potassium (3.5-5.1) mmol/L Carbon Dioxide (22-30) mmol/L BUN (9-20) mg/dL Creatinine (0.66-1.25) mg/dL Glucose (74-99) mg/dL POC Glucose (mg/dL) 150 H (70-110) mg/dL Plasma Lactic Acid Alexander (0.7-2.0) mmol/L Calcium (8.4-10.2) mg/dL Phosphorus (2.5-4.5) mg/dL Magnesium (1.6-2.3) mg/dL Total Bilirubin (0.2-1.3) mg/dL AST (17-59) U/L ALT (4-49) U/L Lactate Dehydrogenase (120-246) U/L Total Protein (6.3-8.2) g/dL Albumin (3.5-5.0) g/dL 01/08/24 01/08/24 01/08/24 Range/Units 03:00 03:00 03:00 WBC 14.4 H (3.8-10.6) k/uL RBC 3.58 L (4.30-5.90) m/uL Hgb 10.9 L (13.0-17.5) gm/dL Hct 31.1 L (39.0-53.0) % Plt Count 98 L (150-450) k/uL Neutrophils # (1.3-7.7) k/uL APTT (22.0-30.0) sec ABG pH (7.35-7.45) ABG pO2 (83-108) mmHg ABG HCO3 (21-25) mmol/L ABG Total CO2 (19-24) mmol/L ABG O2 Saturation (94-97) % ABG Lactic Acid 4.3 H* (0.5-1.6) mmol/L Sodium 135 L (137-145) mmol/L Potassium (3.5-5.1) mmol/L Carbon Dioxide (22-30) mmol/L BUN 40 H (9-20) mg/dL Creatinine 3.86 H (0.66-1.25) mg/dL Glucose 128 H (74-99) mg/dL POC Glucose (mg/dL) (70-110) mg/dL Plasma Lactic Acid Alexander (0.7-2.0) mmol/L Calcium 7.1 L (8.4-10.2) mg/dL Phosphorus 6.4 H (2.5-4.5) mg/dL Magnesium 2.5 H (1.6-2.3) mg/dL Total Bilirubin 1.9 H (0.2-1.3) mg/dL AST 05743 H (17-59) U/L ALT 7935 H (4-49) U/L Lactate Dehydrogenase (120-246) U/L Total Protein 4.3 L (6.3-8.2) g/dL Albumin 2.2 L (3.5-5.0) g/dL 01/08/24 01/08/24 Range/Units 06:00 06:10 WBC (3.8-10.6) k/uL RBC (4.30-5.90) m/uL Hgb (13.0-17.5) gm/dL Hct (39.0-53.0) % Plt Count (150-450) k/uL Neutrophils # (1.3-7.7) k/uL APTT (22.0-30.0) sec ABG pH 7.49 H (7.35-7.45) ABG pO2 196 H (83-108) mmHg ABG HCO3 29 H (21-25) mmol/L ABG Total CO2 30 H (19-24) mmol/L ABG O2 Saturation 99.7 H (94-97) % ABG Lactic Acid (0.5-1.6) mmol/L Sodium (137-145) mmol/L Potassium (3.5-5.1) mmol/L Carbon Dioxide (22-30) mmol/L BUN (9-20) mg/dL Creatinine (0.66-1.25) mg/dL Glucose (74-99) mg/dL POC Glucose (mg/dL) (70-110) mg/dL Plasma Lactic Acid Alexander (0.7-2.0) mmol/L Calcium (8.4-10.2) mg/dL Phosphorus (2.5-4.5) mg/dL Magnesium (1.6-2.3) mg/dL Total Bilirubin (0.2-1.3) mg/dL AST (17-59) U/L ALT (4-49) U/L Lactate Dehydrogenase >95327 H (120-246) U/L Total Protein (6.3-8.2) g/dL Albumin (3.5-5.0) g/dL Microbiology - Last 24 Hours (Table) 01/06/24 20:27 Gram Stain - Preliminary Sputum Assessment and Plan Assessment: S/P out of hospital cardiopulmonary arrest, with prolonged resuscitation, and eventual return of spontaneous circulation. Suspected significant cerebral anoxia with anoxic encephalopathy. S/P intubation, and mechanical ventilation, secondary to cardiopulmonary arrest. 100% LAD lesion, with stenting, and placement of an Impella device. Non-ST segment elevation myocardial infarction. Severe hypotension, secondary to cardiogenic shock. Atrial fibrillation. Lactic acidosis. Non-anion gap metabolic acidosis. Recent diagnosis of hypertension. History of chronic tobacco use. Plan: Plan dated January 06, 2024. The patient is seen in the intensive care unit. We placed a right radial art line. The patient is on amiodarone at 1 mg/min. In addition, the patient is receiving norepinephrine at 0.5 mcg/kg/min. I have asked the nurses to start vasopressin, to maintain a mean arterial pressure of 65 to 70 mmHg. The blood gas showed a pO2 of 76, pCO2 of 42, and a pH of 7.287. I have asked the nurses to give the patient 2 A of sodium bicarbonate. Labs, x-rays, medications are reviewed. The patient is overall prognosis remains very guarded given the fact that he has had such a prolonged period of resuscitation. In fact, the patient developed ventricular tachycardia, on the way to the ICU, and was cardioverted. We will continue to follow make recommendations. Plan dated January 07, 2024. The patient's overall prognosis remains extremely poor. His blood gases show pO2 142, pCO2 29, pH is 7.28. The FiO2 was reduced down to 90%. He remains on multiple drips including propofol, norepinephrine, lidocaine, vasopressin, amiodarone, epinephrine, and sodium bicarbonate drip. He is also receiving IV heparin. Labs, x-rays, and medications are all reviewed. We will continue to follow make recommendations along the way. The patient is now a DO NOT RESUSCITATE patient which is very appropriate. We will continue to follow. Plan dated January 08, 2024. The patient's overall situation is very poor. The patient is currently just on lidocaine at 2 mg/min, and a sodium bicarbonate drip. Blood gases show pO2 196, pCO2 of 38, pH of 7.49. The Impella device remains in place. The patient is a DO NOT RESUSCITATE patient. Labs, x-rays, and medications are all reviewed. The patient's overall prognosis remains very poor. Yesterday, he was on propofol, norepinephrine, lidocaine, vasopressin, amiodarone, epinephrine, and a sodium bicarbonate drip. We will continue to follow make recommendations. The nurse will talk to the family about additional changes in CODE STATUS, i.e. comfort care. Time with Patient: Greater than 30
[2024-01-08 12:29] VITALS: TEMP 96.8
--- NOTE | 2024-01-08 12:56 | P.CNNES ---
History of Present Illness Consult date: 01/08/24 Requesting physician: Kareem Ibrahim Reason for Consult: post cardiac arrest History of Present Illness: This is a 63-year-old gentleman who presents to emergency department after he suffered out of the hospital cardiopulmonary arrest. History is obtained from medical records. Patient presented to our facility on 01/06/2024. the patient did not have any complaints prior to his arrest and was down in the basement d [facility] laundry and the family heard him collapse. He was unresponsive without pulses. She does initiate by family. EMS was contacted and the patient was defibrillated 5 times and was intubated the seen and on route he lost pulses again and was in PEA the ROSC was achieved. It seems total down time in total was prolonged and per nurse about 1 hour. during his hospital visit per the nurse he continued to be intubated on a ventilator and that his sedation was stopped at midnight and the and he was on IV propofol 10mcg/kg/min but stopped. Per nurse no movement and felt the eyes were dilated and at time right is bigger than left or vice versa. Cardiac cath was done and it showed 100% stenosis in mid LAD and anamolous circumflex. Is on Impella It seems the family decided to make him DN&R. Some of the work-up during this hospital visit consisted of: Patient is hypotensive during this admission as low as 60/50's. AST 12K ALT is close to 8K. Lactated dehydrogenase is >51160 Creatninne is trending up of 3.[address] head it is reported as no acute intracranial process. I personally reviewed CT and agree Review of Systems Limited and the positive and negative as per HPI. Past Medical History Past Medical History: No Reported History Additional Past Medical History / Comment(s): HLD History of Any Multi-Drug Resistant Organisms: None Reported Past Surgical History: No Surgical Hx Reported Past Psychological History: No Psychological Hx Reported Smoking Status: Current every day smoker Past Alcohol Use History: None Reported Past Drug Use History: None Reported Medications and Allergies Home Medications Medication Instructions Recorded Confirmed Type lisinopriL [Zestril] 10 mg PO DAILY #30 tab 11/27/22 01/06/24 Rx Tamsulosin HCl [Flomax] 0.4 mg PO HS 01/06/24 01/06/24 History Allergies Allergy/AdvReac Type Severity Reaction Status Date / Time Sulfa (Sulfonamide Allergy Swelling Verified 01/06/24 11:10 Antibiotics) Physical Examination - Vital Signs Vital Signs: Vital Signs Temp Pulse Resp BP Pulse Ox FiO2 01/08/24 12:00 96.8 F L 59 L 16 01/08/24 11:59 75 01/08/24 11:45 57 L 16 01/08/24 11:39 75 01/08/24 11:30 58 L 16 01/08/24 11:15 57 L 16 01/08/24 11:00 58 L 16 01/08/24 10:45 59 L 16 01/08/24 10:30 60 16 01/08/24 10:15 58 L 16 01/08/24 10:00 58 L 16 01/08/24 09:47 75 01/08/24 09:45 57 L 16 01/08/24 09:35 75 01/08/24 09:30 59 L 16 01/08/24 09:15 59 L 16 01/08/24 09:00 57 L 16 01/08/24 08:45 56 L 16 01/08/24 08:30 56 L 16 01/08/24 08:15 56 L 16 01/08/24 08:00 55 L 16 75 01/08/24 07:58 75 01/08/24 07:45 56 L 16 01/08/24 07:30 57 L 16 01/08/24 07:15 56 L 16 01/08/24 07:00 55 L 16 01/08/24 06:45 56 L 16 01/08/24 06:30 57 L 16 01/08/24 06:15 56 L 16 01/08/24 06:14 75 01/08/24 06:00 59 L 16 01/08/24 05:45 57 L 16 01/08/24 05:30 60 16 01/08/24 05:15 60 17 01/08/24 05:00 59 L 17 01/08/24 04:45 60 16 01/08/24 04:30 59 L 17 01/08/24 04:15 57 L 17 90 01/08/24 04:00 98.3 F 57 L 16 90 01/08/24 03:45 57 L 16 01/08/24 03:30 57 L 16 01/08/24 03:25 90 01/08/24 03:15 58 L 16 01/08/24 03:00 57 L 16 114/50 01/08/24 02:45 114/50 01/08/24 02:30 58 L 22 114/50 01/08/24 02:15 58 L 20 114/50 01/08/24 02:00 57 L 18 01/08/24 01:45 58 L 17 01/08/24 01:30 57 L 18 01/08/24 01:15 60 17 01/08/24 01:00 60 17 01/08/24 00:45 60 17 01/08/24 00:33 61 17 01/08/24 00:30 60 18 01/08/24 00:15 61 19 01/08/24 00:00 98.6 F 61 20 90 01/07/24 23:45 62 20 01/07/24 23:30 63 19 01/07/24 23:29 90 01/07/24 23:15 64 19 01/07/24 23:00 64 20 90 01/07/24 22:45 65 20 01/07/24 22:30 65 22 50 L 01/07/24 22:15 66 20 01/07/24 22:00 66 22 90 01/07/24 21:45 67 20 01/07/24 21:30 66 22 01/07/24 21:15 66 22 01/07/24 21:00 66 24 90 01/07/24 20:45 65 24 01/07/24 20:30 64 25 H 01/07/24 20:23 90 01/07/24 20:15 64 26 H 01/07/24 20:00 99.5 F 64 27 H 90 01/07/24 19:45 65 26 H 01/07/24 19:30 64 26 H 01/07/24 19:15 64 26 H 01/07/24 19:00 63 26 H 01/07/24 18:45 62 25 H 01/07/24 18:30 62 24 01/07/24 18:15 62 23 01/07/24 18:00 61 23 01/07/24 17:45 61 23 01/07/24 17:30 63 21 01/07/24 17:15 64 20 01/07/24 17:00 64 20 01/07/24 16:45 67 21 01/07/24 16:30 69 20 01/07/24 16:15 70 20 01/07/24 16:00 99.1 F 70 19 90 01/07/24 15:45 71 20 01/07/24 15:30 71 18 01/07/24 15:15 71 19 01/07/24 15:12 90 01/07/24 15:00 71 19 01/07/24 14:45 71 18 01/07/24 14:30 71 18 01/07/24 14:15 71 18 01/07/24 14:00 70 18 01/07/24 13:45 70 18 01/07/24 13:30 70 18 01/07/24 13:15 70 17 01/07/24 13:00 69 16 01/07/24 12:45 68 17 01/07/24 12:30 66 16 Intake and Output 01/07/24 01/08/24 01/08/24 22:59 06:59 14:59 Intake Total 2952.903 3174.427 644.777 Output Total 20 2 0 Balance 3898.858 8186.427 644.777 Intake: IV 936 946 637 CO/CI 40 50 40 Dextrose 5% in Water 1, 800 800 300 000 ml @ 100 mls/hr IV . [id number] COREEN with Sodium Bicarb (1 Meq/ml) 150 ml Rx#:[id number] Pressure Bag 96 96 72 Sodium Chloride 0.9% 1, 225 000 ml @ 75 mls/hr IV . [id number] COREEN Rx#:[id number] Intake, IV Titration 383.239 354.427 7.777 Amount EPINEPHrine 4 mg In 98.481 Dextrose 5% in Water 250 ml @ 0.03 MCG/KG/MIN 8. 291 mls/hr IV .Q24H COREEN Rx#:[id number] Heparin Sod,Pork in 0.45% 75.456 58.223 NaCl 25,000 unit In 0.45 % NaCl 1 250ml.bag @ 12 UNITS/KG/HR 8.844 mls/hr IV .Q24H COREEN Rx#: [id number] Lidocaine-D5w Pmx 2G/ 208.75 250Ml 2,000 mg In Dextrose/Water 1 250ml. bag @ 2 MG/MIN 15 mls/hr IV .[id number] COREEN Rx#: [id number] Norepinephrine 32 mg In 23.528 Sodium Chloride 0.9% 218 ml @ 0.24 MCG/KG/MIN 8. 291 mls/hr IV .Q24H COREEN Rx#:[id number] Vasopressin 60 unit In 85.221 45.925 7.777 Sodium Chloride 0.9% 150 ml @ 0.03 UNITS/MIN 4.59 mls/hr IV .Q24H COREEN Rx#: [id number] propofoL 1,000 mg In 100.553 41.529 Empty Bag 1 bag @ 15 MCG/ KG/MIN 6.633 mls/hr IV . [id number] COREEN Rx#:[id number] Output: Urine 20 2 0 Other: Voiding Method Indwelling Catheter Indwelling Catheter Indwelling Catheter Weight 79.333 kg 79.333 kg ABP, PAP, CO, CI - Last 8 Hours Arterial Blood Pressure 94/65 Arterial Blood Pressure 95/65 Arterial Blood Pressure 96/66 Arterial Blood Pressure 94/65 Arterial Blood Pressure 94/65 Arterial Blood Pressure 99/68 Arterial Blood Pressure 96/66 Arterial Blood Pressure 95/65 Arterial Blood Pressure 94/64 Arterial Blood Pressure 94/65 Arterial Blood Pressure 95/65 Arterial Blood Pressure 93/65 Arterial Blood Pressure 92/64 Arterial Blood Pressure 91/64 Arterial Blood Pressure 90/63 Arterial Blood Pressure 86/62 Arterial Blood Pressure 88/64 Arterial Blood Pressure 91/66 Arterial Blood Pressure 89/65 Arterial Blood Pressure 89/65 Arterial Blood Pressure 85/62 Arterial Blood Pressure 83/61 Arterial Blood Pressure 82/60 Arterial Blood Pressure 80/59 Arterial Blood Pressure 83/59 Arterial Blood Pressure 81/58 Arterial Blood Pressure 81/58 Arterial Blood Pressure 81/58 Arterial Blood Pressure 82/58 Arterial Blood Pressure 83/59 Pulmonary Artery Pressure 35/21 Pulmonary Artery Pressure 36/21 Pulmonary Artery Pressure 36/21 Pulmonary Artery Pressure 35/21 Pulmonary Artery Pressure 36/21 Pulmonary Artery Pressure 37/22 Pulmonary Artery Pressure 34/19 Pulmonary Artery Pressure 34/19 Pulmonary Artery Pressure 35/19 Pulmonary Artery Pressure 35/20 Pulmonary Artery Pressure 36/20 Pulmonary Artery Pressure 35/19 Pulmonary Artery Pressure 35/19 Pulmonary Artery Pressure 35/19 Pulmonary Artery Pressure 34/20 Pulmonary Artery Pressure 34/20 Pulmonary Artery Pressure 35/20 Pulmonary Artery Pressure 34/21 Pulmonary Artery Pressure 34/21 Pulmonary Artery Pressure 33/20 Pulmonary Artery Pressure 34/20 Pulmonary Artery Pressure 33/19 Pulmonary Artery Pressure 32/19 Pulmonary Artery Pressure 31/15 Pulmonary Artery Pressure 33/18 Pulmonary Artery Pressure 34/18 Pulmonary Artery Pressure 35/18 Pulmonary Artery Pressure 36/19 Pulmonary Artery Pressure 36/19 Pulmonary Artery Pressure 36/20 Cardiac Output 2.3 Cardiac Output 1.8 Cardiac Output 1.8 Cardiac Output 1.8 Cardiac Output 1.8 Cardiac Output 1.8 Cardiac Output 1.8 Cardiac Output 1.8 Cardiac Output 1.8 Cardiac Output 1.8 Cardiac Output 1.8 Cardiac Output 1.8 Cardiac Output 1.8 Cardiac Output 1.8 Cardiac Output 1.8 Cardiac Output 1.8 Cardiac Output 1.8 Cardiac Output 2 Cardiac Output 2 Cardiac Index 1.3 Cardiac Index 1 Cardiac Index 1 Cardiac Index 1 Cardiac Index 1 Cardiac Index 1 Cardiac Index 1 Cardiac Index 1 Cardiac Index 1 Cardiac Index 1 Cardiac Index 1 Cardiac Index 1 Cardiac Index 1 Cardiac Index 1 Cardiac Index 1 Cardiac Index 1 Cardiac Index 1 Cardiac Index 1.1 Cardiac Index 1.1 General: This is an obese gentleman who is lying in bed and is not in acute distress. Resp: Intubated on ventilator. Neuro: Very limited. Sedation (IV Propofol 10mcg/kg/min has been stopped since midnight). Is comatose. GCS 3 (E1, VT1, M1). I had to manually open his eyes. Primary gaze is midline. Right pupil is 4mm and left is 6mm and nonreactive to light. Has positive corneal over the left eye. Negative cough, occulocephalic. Is not breathing over the vent when took setting from 16 to 2. Motor: No spontaneous movement. Has decrease tone throughout. No withdrawal to painful stimuli. Reflex: 1+ throughout. Plantars: Mute Results - Laboratory Findings CBC and BMP: 01/08/24 03:00 01/08/24 03:00 Abnormal Lab Findings: Abnormal Labs 01/05/24 01/06/24 01/06/24 23:25 11:35 11:35 WBC RBC Hgb Hct Plt Count Neutrophils # PT INR APTT ABG pH ABG pCO2 ABG pO2 ABG HCO3 ABG Total CO2 ABG O2 Saturation ABG Lactic Acid 8.3 H* Sodium Potassium Chloride 111 H Carbon Dioxide 17 L BUN Creatinine Glucose 265 H POC Glucose (mg/dL) Plasma Lactic Acid Alexander Calcium 8.0 L Phosphorus Magnesium Total Bilirubin AST ALT Lactate Dehydrogenase Troponin I 0.086 H* Total Protein 5.6 L Albumin 3.0 L 01/06/24 01/06/24 01/06/24 11:35 15:30 15:30 WBC 22.1 H RBC Hgb Hct Plt Count Neutrophils # 19.8 H PT INR APTT ABG pH ABG pCO2 ABG pO2 ABG HCO3 ABG Total CO2 ABG O2 Saturation ABG Lactic Acid Sodium Potassium Chloride Carbon Dioxide BUN Creatinine Glucose POC Glucose (mg/dL) Plasma Lactic Acid Alexander 7.9 H* 5.0 H* Calcium Phosphorus Magnesium Total Bilirubin AST ALT Lactate Dehydrogenase Troponin I Total Protein Albumin 01/06/24 01/06/24 01/06/24 15:30 15:30 15:39 WBC RBC Hgb Hct Plt Count Neutrophils # PT 13.2 H INR 1.3 H APTT 185.7 H* ABG pH ABG pCO2 ABG pO2 ABG HCO3 ABG Total CO2 ABG O2 Saturation ABG Lactic Acid Sodium Potassium Chloride 111 H Carbon Dioxide 19 L BUN Creatinine Glucose 274 H POC Glucose (mg/dL) 283 H Plasma Lactic Acid Alexander Calcium Phosphorus Magnesium 3.2 H Total Bilirubin AST ALT Lactate Dehydrogenase Troponin I Total Protein Albumin 01/06/24 01/06/24 01/06/24 15:41 18:25 18:25 WBC RBC Hgb Hct Plt Count Neutrophils # PT INR APTT 82.9 H ABG pH 7.29 L ABG pCO2 ABG pO2 76 L ABG HCO3 20 L ABG Total CO2 ABG O2 Saturation ABG Lactic Acid Sodium Potassium Chloride Carbon Dioxide BUN Creatinine Glucose POC Glucose (mg/dL) Plasma Lactic Acid Alexander Calcium Phosphorus Magnesium Total Bilirubin AST ALT Lactate Dehydrogenase 1786 H Troponin I Total Protein Albumin 01/06/24 01/06/24 01/06/24 19:54 20:40 22:15 WBC RBC Hgb Hct Plt Count Neutrophils # PT INR APTT ABG pH ABG pCO2 ABG pO2 ABG HCO3 ABG Total CO2 ABG O2 Saturation ABG Lactic Acid Sodium Potassium Chloride 112 H Carbon Dioxide 16 L BUN Creatinine 1.73 H Glucose 183 H POC Glucose (mg/dL) 185 H Plasma Lactic Acid Alexander 6.9 H* Calcium 8.3 L Phosphorus Magnesium 3.0 H Total Bilirubin AST ALT Lactate Dehydrogenase Troponin I Total Protein Albumin 01/06/24 01/06/24 01/06/24 22:15 23:00 23:25 WBC 17.9 H RBC Hgb Hct Plt Count Neutrophils # PT INR APTT 70.9 H ABG pH ABG pCO2 ABG pO2 ABG HCO3 ABG Total CO2 ABG O2 Saturation ABG Lactic Acid Sodium Potassium Chloride Carbon Dioxide BUN Creatinine Glucose POC Glucose (mg/dL) Plasma Lactic Acid Alexander Calcium Phosphorus Magnesium Total Bilirubin AST ALT Lactate Dehydrogenase 2166 H Troponin I Total Protein Albumin 01/07/24 01/07/24 01/07/24 02:25 02:25 03:22 WBC RBC Hgb Hct Plt Count Neutrophils # PT INR APTT 76.9 H ABG pH 7.28 L ABG pCO2 29 L ABG pO2 142 H ABG HCO3 14 L ABG Total CO2 15 L ABG O2 Saturation 98.8 H ABG Lactic Acid Sodium Potassium Chloride Carbon Dioxide BUN Creatinine Glucose POC Glucose (mg/dL) Plasma Lactic Acid Alexander Calcium Phosphorus Magnesium Total Bilirubin AST ALT Lactate Dehydrogenase 2473 H Troponin I Total Protein Albumin 01/07/24 01/07/24 01/07/24 04:00 05:15 05:15 WBC 16.6 H RBC Hgb Hct Plt Count Neutrophils # 14.7 H PT INR APTT ABG pH ABG pCO2 ABG pO2 ABG HCO3 ABG Total CO2 ABG O2 Saturation ABG Lactic Acid 10.1 H* Sodium Potassium 5.4 H Chloride 114 H Carbon Dioxide 10 L BUN 23 H Creatinine 2.38 H Glucose 126 H POC Glucose (mg/dL) Plasma Lactic Acid Alexander Calcium 8.2 L Phosphorus 6.9 H Magnesium 3.0 H Total Bilirubin 2.6 H AST 1399 H ALT 423 H Lactate Dehydrogenase 3106 H Troponin I Total Protein 5.1 L Albumin 2.7 L 01/07/24 01/07/24 01/07/24 06:30 06:30 06:34 WBC RBC Hgb Hct Plt Count Neutrophils # PT INR APTT 114.1 H* ABG pH ABG pCO2 ABG pO2 ABG HCO3 ABG Total CO2 ABG O2 Saturation ABG Lactic Acid Sodium Potassium Chloride Carbon Dioxide BUN Creatinine 2.47 H Glucose POC Glucose (mg/dL) 126 H Plasma Lactic Acid Alexander Calcium Phosphorus Magnesium Total Bilirubin AST ALT Lactate Dehydrogenase Troponin I Total Protein Albumin 01/07/24 01/07/24 01/07/24 10:40 11:48 12:21 WBC RBC Hgb Hct Plt Count Neutrophils # PT INR APTT ABG pH 7.22 L ABG pCO2 ABG pO2 ABG HCO3 17 L ABG Total CO2 18 L ABG O2 Saturation ABG Lactic Acid 11.5 H* Sodium Potassium Chloride Carbon Dioxide BUN Creatinine Glucose POC Glucose (mg/dL) 171 H Plasma Lactic Acid Alexander Calcium Phosphorus Magnesium Total Bilirubin AST ALT Lactate Dehydrogenase Troponin I Total Protein Albumin 01/07/24 01/07/24 01/07/24 15:03 15:03 15:03 WBC 20.7 H RBC Hgb 12.6 L Hct Plt Count Neutrophils # PT INR APTT 31.8 H ABG pH ABG pCO2 ABG pO2 ABG HCO3 ABG Total CO2 ABG O2 Saturation ABG Lactic Acid Sodium Potassium Chloride Carbon Dioxide BUN Creatinine Glucose POC Glucose (mg/dL) Plasma Lactic Acid Alexander Calcium Phosphorus Magnesium Total Bilirubin AST ALT Lactate Dehydrogenase >39235 H Troponin I Total Protein Albumin 01/07/24 01/07/24 01/07/24 16:11 17:24 18:00 WBC RBC Hgb Hct Plt Count Neutrophils # PT INR APTT ABG pH ABG pCO2 ABG pO2 ABG HCO3 ABG Total CO2 ABG O2 Saturation ABG Lactic Acid Sodium Potassium Chloride Carbon Dioxide BUN Creatinine Glucose POC Glucose (mg/dL) 204 H 151 H Plasma Lactic Acid Alexander 9.3 H* Calcium Phosphorus Magnesium Total Bilirubin AST ALT Lactate Dehydrogenase Troponin I Total Protein Albumin 01/07/24 01/07/24 01/07/24 19:03 20:42 20:42 WBC RBC Hgb Hct Plt Count Neutrophils # PT INR APTT 38.1 H ABG pH ABG pCO2 ABG pO2 ABG HCO3 ABG Total CO2 ABG O2 Saturation ABG Lactic Acid 6.5 H* Sodium 136 L Potassium 5.3 H Chloride Carbon Dioxide 20 L BUN 33 H Creatinine 3.43 H Glucose 142 H POC Glucose (mg/dL) Plasma Lactic Acid Alexander Calcium 7.4 L Phosphorus Magnesium Total Bilirubin AST ALT Lactate Dehydrogenase Troponin I Total Protein Albumin 01/07/24 01/07/24 01/07/24 20:42 22:25 23:44 WBC 16.2 H RBC 4.15 L Hgb 12.2 L Hct 36.5 L Plt Count 139 L Neutrophils # 14.2 H PT INR APTT ABG pH ABG pCO2 ABG pO2 ABG HCO3 ABG Total CO2 ABG O2 Saturation ABG Lactic Acid Sodium Potassium Chloride Carbon Dioxide BUN Creatinine Glucose POC Glucose (mg/dL) 150 H Plasma Lactic Acid Alexander Calcium Phosphorus Magnesium Total Bilirubin AST ALT Lactate Dehydrogenase >23456 H Troponin I Total Protein Albumin 01/07/24 01/08/24 01/08/24 23:45 03:00 03:00 WBC RBC Hgb Hct Plt Count Neutrophils # PT INR APTT 40.4 H ABG pH ABG pCO2 ABG pO2 ABG HCO3 ABG Total CO2 ABG O2 Saturation ABG Lactic Acid 5.5 H* Sodium 135 L Potassium Chloride Carbon Dioxide BUN 40 H Creatinine 3.86 H Glucose 128 H POC Glucose (mg/dL) Plasma Lactic Acid Alexander Calcium 7.1 L Phosphorus 6.4 H Magnesium 2.5 H Total Bilirubin 1.9 H AST 90715 H ALT 7935 H Lactate Dehydrogenase Troponin I Total Protein 4.3 L Albumin 2.2 L 01/08/24 01/08/24 01/08/24 03:00 03:00 06:00 WBC 14.4 H RBC 3.58 L Hgb 10.9 L Hct 31.1 L Plt Count 98 L Neutrophils # PT INR APTT ABG pH ABG pCO2 ABG pO2 ABG HCO3 ABG Total CO2 ABG O2 Saturation ABG Lactic Acid 4.3 H* Sodium Potassium Chloride Carbon Dioxide BUN Creatinine Glucose POC Glucose (mg/dL) Plasma Lactic Acid Alexander Calcium Phosphorus Magnesium Total Bilirubin AST ALT Lactate Dehydrogenase >99113 H Troponin I Total Protein Albumin 01/08/24 06:10 WBC RBC Hgb Hct Plt Count Neutrophils # PT INR APTT ABG pH 7.49 H ABG pCO2 ABG pO2 196 H ABG HCO3 29 H ABG Total CO2 30 H ABG O2 Saturation 99.7 H ABG Lactic Acid Sodium Potassium Chloride Carbon Dioxide BUN Creatinine Glucose POC Glucose (mg/dL) Plasma Lactic Acid Alexander Calcium Phosphorus Magnesium Total Bilirubin AST ALT Lactate Dehydrogenase Troponin I Total Protein Albumin Assessment and Plan Assessment: This is a 63 y/o gentleman with outside hospital cardiopulmonary arrest that is prolonged. He had cardiac cath and showed 100% stenosis in mid LAD and anamolous circumflex. Is on Impella. His creatnine function is worsening, with elevated LFT's and hypotensive episodes. Likely severe Anoxic brain injury due to prolonged cardiopulmonary arrest. On examination has only left corneal reflex. Outside hospital prolonged cardiopulmonary arrest. 100% stenosis in mid LAD and anamolous circumflex and is on Impella device S/P intubation and mechanical ventilatior due to cardiopulmonary arrest OVI due to above Hypotension due to cardiogenic shock Elevated LFT's due to heart failure leading to organ failure/shock. Plan: EEG is ordered by primary team: Preliminary is no cerebral activity appreciated on routine EEG. No focal slowing, epileptiform discharges or seizure I ordered a repeat CT. Ordered ammonia level. Will defer the rest of medical management to primary and other specialist. Patient prognosis appears very poor. The plan is discussed with patient's nurse and primary attending. Thank you for the consultation. Time with Patient: Greater than 30
[2024-01-08 14:15] LABS: Partial Thromboplastin Time 28.4 sec (22.0-30.0)
--- NOTE | 2024-01-08 14:58 | P.PN ---
Subjective Progress Note Date: 01/08/24 Advanced Care Planning: Diagnoses: Out of hospital V fib adn PEA arrest: Total down time is greater than 60 minutes Multiorgan failure NSTEMI s/p PCI to the LAD VF storm Cardiogenic shock s/p Impella Iscemic cardiomyopathy with ejection fraction 15 to 20% lactic acidosis Acute hypoxic, vent dependent respiratory failure Anuric acute kidney injury, suspect ATN Ischemic hepatitis Impella related hemolysis vs DIC P. A. fib Probable anoxic encephalopathy Discussion: Person(s) present and participating in discussion: Daughter and Summary: Patient has multiorgan failure including probable anoxic encephalopathy. Family with prefer him to be comfortable. Comfort care measures will be initiated. A total of 20 minutes of face to face time was spent discussing advanced care planning. Objective - Vital Signs Vital signs: Vital Signs Temp 96.8 F L 01/08/24 12:00 Pulse 57 L 01/08/24 14:00 Resp 16 01/08/24 14:00 BP 114/50 01/08/24 03:00 Pulse Ox 50 L 01/07/24 22:30 FiO2 75 01/08/24 11:59 Intake & Output 01/07/24 01/08/24 01/08/24 18:59 06:59 18:59 Intake Total 6348.733 8651.576 818.777 Output Total 35 12 0 Balance 6425.064 5204.576 818.777 Weight 79.333 kg 79.333 kg Intake: IV 1278 1414 811 CO/CI 70 70 40 Dextrose 5% in Water 1, 1100 1200 300 000 ml @ 100 mls/hr IV . [id number] [facility] with Sodium Bicarb (1 Meq/ml) 150 ml Rx#:[id number] Pressure Bag 108 144 96 Sodium Chloride 0.9% 1, 375 000 ml @ 75 mls/hr IV . [id number] [facility] Rx#:[id number] Intake, IV Titration 655.027 521.576 7.777 Amount EPINEPHrine 4 mg In 79.455 19.026 Dextrose 5% in Water 250 ml @ 0.03 MCG/KG/MIN 8. 291 mls/hr IV .Q24H [facility] Rx#:[id number] Heparin Sod,Pork in 0.45% 132.697 94.213 NaCl 25,000 unit In 0.45 % NaCl 1 250ml.bag @ 12 UNITS/KG/HR 8.844 mls/hr IV .Q24H [facility] Rx#: [id number] Lidocaine-D5w Pmx 2G/ 192.25 208.75 250Ml 2,000 mg In Dextrose/Water 1 250ml. bag @ 2 MG/MIN 15 mls/hr IV .[id number] [facility] Rx#: [id number] Norepinephrine 32 mg In 80.051 Sodium Chloride 0.9% 218 ml @ 0.03 MCG/KG/MIN 1.23 mls/hr IV .Q24H [facility] Rx#: [id number] Norepinephrine 32 mg In 11.948 11.580 Sodium Chloride 0.9% 218 ml @ 0.24 MCG/KG/MIN 8. 291 mls/hr IV .Q24H [facility] Rx#:[id number] Vasopressin 60 unit In 85.221 45.925 7.777 Sodium Chloride 0.9% 150 ml @ 0.03 UNITS/MIN 4.59 mls/hr IV .Q24H [facility] Rx#: [id number] propofoL 1,000 mg In 73.405 142.082 Empty Bag 1 bag @ 15 MCG/ KG/MIN 6.633 mls/hr IV . Q15H5M [facility] Rx#:[id number] Output: Urine 35 12 0 Other: Voiding Method Indwelling Catheter Indwelling Catheter Indwelling Catheter ABP, PAP, CO, CI - Last Documented Arterial Blood Pressure 82/56 Pulmonary Artery Pressure 30/15 Cardiac Output 2.3 Cardiac Index 1.3 - Labs CBC & Chem 7: 01/08/24 03:00 01/08/24 03:00 Labs: Abnormal Lab Results - Last 24 Hours (Table) 01/07/24 01/07/24 01/07/24 Range/Units 15:03 15:03 15:03 WBC 20.7 H (3.8-10.6) k/uL RBC (4.30-5.90) m/uL Hgb 12.6 L (13.0-17.5) gm/dL Hct (39.0-53.0) % Plt Count (150-450) k/uL Neutrophils # (1.3-7.7) k/uL APTT 31.8 H (22.0-30.0) sec ABG pH (7.35-7.45) ABG pO2 (83-108) mmHg ABG HCO3 (21-25) mmol/L ABG Total CO2 (19-24) mmol/L ABG O2 Saturation (94-97) % ABG Lactic Acid (0.5-1.6) mmol/L Sodium (137-145) mmol/L Potassium (3.5-5.1) mmol/L Carbon Dioxide (22-30) mmol/L BUN (9-20) mg/dL Creatinine (0.66-1.25) mg/dL Glucose (74-99) mg/dL POC Glucose (mg/dL) (70-110) mg/dL Plasma Lactic Acid Alexander (0.7-2.0) mmol/L Calcium (8.4-10.2) mg/dL Phosphorus (2.5-4.5) mg/dL Magnesium (1.6-2.3) mg/dL Total Bilirubin (0.2-1.3) mg/dL AST (17-59) U/L ALT (4-49) U/L Lactate Dehydrogenase >27684 H (120-246) U/L Total Protein (6.3-8.2) g/dL Albumin (3.5-5.0) g/dL 01/07/24 01/07/24 01/07/24 Range/Units 16:11 17:24 18:00 WBC (3.8-10.6) k/uL RBC (4.30-5.90) m/uL Hgb (13.0-17.5) gm/dL Hct (39.0-53.0) % Plt Count (150-450) k/uL Neutrophils # (1.3-7.7) k/uL APTT (22.0-30.0) sec ABG pH (7.35-7.45) ABG pO2 (83-108) mmHg ABG HCO3 (21-25) mmol/L ABG Total CO2 (19-24) mmol/L ABG O2 Saturation (94-97) % ABG Lactic Acid (0.5-1.6) mmol/L Sodium (137-145) mmol/L Potassium (3.5-5.1) mmol/L Carbon Dioxide (22-30) mmol/L BUN (9-20) mg/dL Creatinine (0.66-1.25) mg/dL Glucose (74-99) mg/dL POC Glucose (mg/dL) 204 H 151 H (70-110) mg/dL Plasma Lactic Acid Alexander 9.3 H* (0.7-2.0) mmol/L Calcium (8.4-10.2) mg/dL Phosphorus (2.5-4.5) mg/dL Magnesium (1.6-2.3) mg/dL Total Bilirubin (0.2-1.3) mg/dL AST (17-59) U/L ALT (4-49) U/L Lactate Dehydrogenase (120-246) U/L Total Protein (6.3-8.2) g/dL Albumin (3.5-5.0) g/dL 01/07/24 01/07/24 01/07/24 Range/Units 19:03 20:42 20:42 WBC (3.8-10.6) k/uL RBC (4.30-5.90) m/uL Hgb (13.0-17.5) gm/dL Hct (39.0-53.0) % Plt Count (150-450) k/uL Neutrophils # (1.3-7.7) k/uL APTT 38.1 H (22.0-30.0) sec ABG pH (7.35-7.45) ABG pO2 (83-108) mmHg ABG HCO3 (21-25) mmol/L ABG Total CO2 (19-24) mmol/L ABG O2 Saturation (94-97) % ABG Lactic Acid 6.5 H* (0.5-1.6) mmol/L Sodium 136 L (137-145) mmol/L Potassium 5.3 H (3.5-5.1) mmol/L Carbon Dioxide 20 L (22-30) mmol/L BUN 33 H (9-20) mg/dL Creatinine 3.43 H (0.66-1.25) mg/dL Glucose 142 H (74-99) mg/dL POC Glucose (mg/dL) (70-110) mg/dL Plasma Lactic Acid Alexander (0.7-2.0) mmol/L Calcium 7.4 L (8.4-10.2) mg/dL Phosphorus (2.5-4.5) mg/dL Magnesium (1.6-2.3) mg/dL Total Bilirubin (0.2-1.3) mg/dL AST (17-59) U/L ALT (4-49) U/L Lactate Dehydrogenase (120-246) U/L Total Protein (6.3-8.2) g/dL Albumin (3.5-5.0) g/dL 01/07/24 01/07/24 01/07/24 Range/Units 20:42 22:25 23:44 WBC 16.2 H (3.8-10.6) k/uL RBC 4.15 L (4.30-5.90) m/uL Hgb 12.2 L (13.0-17.5) gm/dL Hct 36.5 L (39.0-53.0) % Plt Count 139 L (150-450) k/uL Neutrophils # 14.2 H (1.3-7.7) k/uL APTT (22.0-30.0) sec ABG pH (7.35-7.45) ABG pO2 (83-108) mmHg ABG HCO3 (21-25) mmol/L ABG Total CO2 (19-24) mmol/L ABG O2 Saturation (94-97) % ABG Lactic Acid (0.5-1.6) mmol/L Sodium (137-145) mmol/L Potassium (3.5-5.1) mmol/L Carbon Dioxide (22-30) mmol/L BUN (9-20) mg/dL Creatinine (0.66-1.25) mg/dL Glucose (74-99) mg/dL POC Glucose (mg/dL) 150 H (70-110) mg/dL Plasma Lactic Acid Alexander (0.7-2.0) mmol/L Calcium (8.4-10.2) mg/dL Phosphorus (2.5-4.5) mg/dL Magnesium (1.6-2.3) mg/dL Total Bilirubin (0.2-1.3) mg/dL AST (17-59) U/L ALT (4-49) U/L Lactate Dehydrogenase >39675 H (120-246) U/L Total Protein (6.3-8.2) g/dL Albumin (3.5-5.0) g/dL 04/24/24 04/25/24 04/25/24 Range/Units 23:45 03:00 03:00 WBC (3.8-10.6) k/uL RBC (4.30-5.90) m/uL Hgb (13.0-17.5) gm/dL Hct (39.0-53.0) % Plt Count (150-450) k/uL Neutrophils # (1.3-7.7) k/uL APTT 40.4 H (22.0-30.0) sec ABG pH (7.35-7.45) ABG pO2 (83-108) mmHg ABG HCO3 (21-25) mmol/L ABG Total CO2 (19-24) mmol/L ABG O2 Saturation (94-97) % ABG Lactic Acid 5.5 H* (0.5-1.6) mmol/L Sodium 135 L (137-145) mmol/L Potassium (3.5-5.1) mmol/L Carbon Dioxide (22-30) mmol/L BUN 40 H (9-20) mg/dL Creatinine 3.86 H (0.66-1.25) mg/dL Glucose 128 H (74-99) mg/dL POC Glucose (mg/dL) (70-110) mg/dL Plasma Lactic Acid Alexander (0.7-2.0) mmol/L Calcium 7.1 L (8.4-10.2) mg/dL Phosphorus 6.4 H (2.5-4.5) mg/dL Magnesium 2.5 H (1.6-2.3) mg/dL Total Bilirubin 1.9 H (0.2-1.3) mg/dL AST 96441 H (17-59) U/L ALT 7935 H (4-49) U/L Lactate Dehydrogenase (120-246) U/L Total Protein 4.3 L (6.3-8.2) g/dL Albumin 2.2 L (3.5-5.0) g/dL 01/08/24 01/08/24 01/08/24 Range/Units 03:00 03:00 06:00 WBC 14.4 H (3.8-10.6) k/uL RBC 3.58 L (4.30-5.90) m/uL Hgb 10.9 L (13.0-17.5) gm/dL Hct 31.1 L (39.0-53.0) % Plt Count 98 L (150-450) k/uL Neutrophils # (1.3-7.7) k/uL APTT (22.0-30.0) sec ABG pH (7.35-7.45) ABG pO2 (83-108) mmHg ABG HCO3 (21-25) mmol/L ABG Total CO2 (19-24) mmol/L ABG O2 Saturation (94-97) % ABG Lactic Acid 4.3 H* (0.5-1.6) mmol/L Sodium (137-145) mmol/L Potassium (3.5-5.1) mmol/L Carbon Dioxide (22-30) mmol/L BUN (9-20) mg/dL Creatinine (0.66-1.25) mg/dL Glucose (74-99) mg/dL POC Glucose (mg/dL) (70-110) mg/dL Plasma Lactic Acid Alexander (0.7-2.0) mmol/L Calcium (8.4-10.2) mg/dL Phosphorus (2.5-4.5) mg/dL Magnesium (1.6-2.3) mg/dL Total Bilirubin (0.2-1.3) mg/dL AST (17-59) U/L ALT (4-49) U/L Lactate Dehydrogenase >14110 H (120-246) U/L Total Protein (6.3-8.2) g/dL Albumin (3.5-5.0) g/dL 01/08/24 Range/Units 06:10 WBC (3.8-10.6) k/uL RBC (4.30-5.90) m/uL Hgb (13.0-17.5) gm/dL Hct (39.0-53.0) % Plt Count (150-450) k/uL Neutrophils # (1.3-7.7) k/uL APTT (22.0-30.0) sec ABG pH 7.49 H (7.35-7.45) ABG pO2 196 H (83-108) mmHg ABG HCO3 29 H (21-25) mmol/L ABG Total CO2 30 H (19-24) mmol/L ABG O2 Saturation 99.7 H (94-97) % ABG Lactic Acid (0.5-1.6) mmol/L Sodium (137-145) mmol/L Potassium (3.5-5.1) mmol/L Carbon Dioxide (22-30) mmol/L BUN (9-20) mg/dL Creatinine (0.66-1.25) mg/dL Glucose (74-99) mg/dL POC Glucose (mg/dL) (70-110) mg/dL Plasma Lactic Acid Alexander (0.7-2.0) mmol/L Calcium (8.4-10.2) mg/dL Phosphorus (2.5-4.5) mg/dL Magnesium (1.6-2.3) mg/dL Total Bilirubin (0.2-1.3) mg/dL AST (17-59) U/L ALT (4-49) U/L Lactate Dehydrogenase (120-246) U/L Total Protein (6.3-8.2) g/dL Albumin (3.5-5.0) g/dL Microbiology - Last 24 Hours (Table) 01/06/24 20:27 Gram Stain - Preliminary Sputum Sputum Culture - Preliminary
[2024-01-08] MEDS ORDERED: LORazepam 2 MG/ML INJ IV PRN (17:49)
[2024-01-08] MEDS ORDERED: MORPHINE SULFATE 2 MG/ML SYRINGE IV PRN (17:49)
[2024-01-08] MEDS: SCOPOLAMINE 1 MG/72 HR PATCH TRANSDERM SCH (18:05)
[2024-01-08 18:11] VITALS: PULSE 61
[2024-01-08] MEDS: MORPHINE SULFATE 4 MG/ML SYRINGE IV PRN (18:58)
[2024-01-08 20:04] VITALS: RESP 15
--- NOTE | 2024-01-08 21:29 | P.PN ---
Subjective HISTORY OF PRESENTING ILLNESS This is a pleasant 63-year-old who presents secondary to cardiac arrest. Patient apparently had been doing fine and had gone down to the basement and then the followed him a few minutes later and found him collapsed unresponsive on the floor.patient currently unresponsive and not available to provide more history. Patient then had prolonged cardiac arrest with initial shockable rhythm ventricular fibrillation per EMS/E ER report. Patient had prolonged CPR however good quality with mechanical CPR. Patient has had PEA and eventually had ROSC however is being maintained on norepinephrine with blood p ressures in the 70s over 40s. patient with 3 mm pupils responsive to light and apparently had been breathing over the ventilator. EKG showsloss of P waves, what appears to be A. fib with widening QRS and mild ST elevation in V1 and V2. he did receive Versed for sedation. 01/06 patient seen and examined. Patient underwent left heart catheterization 01/05 with finding of proximal to mid LAD 100% stenosis and underwent PCI of LAD with additional Impella CP placement from a left femoral approach. He had 2 episodes of V. fib requiring cardioversion and second time cardioverted back into sinus r hythm. He was switched from amiodarone to lidocaine given continued frequent ectopy. He has had varying degrees of blood pressures and has more recently required up titration of vasopressors. At approximate 7 AM he lost pulsatility and was started on epinephrine drip. Additionally he was started on norepinephrine and vasopressin. His blood pressures significantly elevated currently with a map in the 90s. We discussed the goal of 65. His lactic acid is also increased up to 11, has become more acidotic and is currently on a bicarbonate drip at 100. He has had issues with hemolysis and initially was decreased on the P7 overnight however became more hypotensive and therefore this was increased up to P8, P9. He has continued to have issues with hemolysis however able to let run blood work. he is currently intubated and sedated however not making any purposeful movements. 01/07 And examined. Patient with white blood cell count 14.4, hemoglobin 10.9, lactic acid slightly down to 4.3, creatinine up to 3.8 and not making much urine with shock liver with liver enzymes up to 12,000, 8000 with AST and ALT respectively. Additionally LVH severely elevated greater than 10,000 and decreasing platelet count 498 and therefore heparin drip was discontinued. He has been weaned off of epinephrine and norepinephrine. Per patient's family's wishes patient have a multi organ failure and prolonged downtime and considering hospice care/comfort measures. PHYSICAL EXAMINATION Vital signs reviewed. CONSTITUTIONAL: ill-appearing, intubated HEENT: Head is normocephalic. Pupils are equal, round. Sclerae anicteric. Mucous membranes of the mouth are moist. No JVD. No carotid bruit. CHEST EXAMINATION: Lungs are clear to auscultation. No chest wall tenderness is noted on palpation or with deep breathing. HEART EXAMINATION: IRRegular rate and rhythm. S1, S2 heard. No murmurs, gallops or rub. ABDOMEN: Soft, nontender. Positive bowel sounds. EXTREMITIES: trace peripheral pulses, no lower extremity edema and no calf tenderness. NEUROLOGIC EXAMINATION: Patient is intubated and sedated ASSESSMENT cardiac arrest Non-STEMI Lactic acidosis Altered mental status, rule out hypoxic encephalopathy A. fib cardiogenic shock CAD status post PCI of LAD Acute kidney injury PLAN continue with current Impella settings with D5 as patient is having significant hemolysis. Additionally however significantly decreased cardiac output/cardiac index and has not had significant recovery and unlikely patient will have significant cardiac recovery or any other multiorgan failure recovery. Patient appears palliative care appropriate. Continue current supportive care. Objective - Vital Signs Vital signs: Vital Signs Temp 96.8 F L 01/08/24 12:00 Pulse 61 01/08/24 19:00 Resp 15 01/08/24 19:00 BP 114/50 01/08/24 03:00 Pulse Ox 50 L 01/07/24 22:30 FiO2 75 01/08/24 15:34 Intake & Output 01/08/24 01/08/24 01/09/24 06:59 18:59 06:59 Intake Total 0900.662 3024.027 Output Total 12 0 Balance 5652.750 8257.027 Weight 79.333 kg 79.333 kg Intake: IV 1414 1179 CO/CI 70 60 Dextrose 5% in Water 1, 1200 300 000 ml @ 100 mls/hr IV . [id number] [facility] with Sodium Bicarb (1 Meq/ml) 150 ml Rx#:[id number] Pressure Bag 144 144 Sodium Chloride 0.9% 1, 675 000 ml @ 75 mls/hr IV . [id number] [facility] Rx#:[id number] Intake, IV Titration 521.576 246.027 Amount EPINEPHrine 4 mg In 19.026 Dextrose 5% in Water 250 ml @ 0.03 MCG/KG/MIN 8. 291 mls/hr IV .Q24H [facility] Rx#:[id number] Heparin Sod,Pork in 0.45% 94.213 NaCl 25,000 unit In 0.45 % NaCl 1 250ml.bag @ 12 UNITS/KG/HR 8.844 mls/hr IV .Q24H [facility] Rx#: [id number] Lidocaine-D5w Pmx 2G/ 208.75 238.25 250Ml 2,000 mg In Dextrose/Water 1 250ml. bag @ 2 MG/MIN 15 mls/hr IV .[id number] [facility] Rx#: [id number] Norepinephrine 32 mg In 11.580 Sodium Chloride 0.9% 218 ml @ 0.24 MCG/KG/MIN 8. 291 mls/hr IV .Q24H [facility] Rx#:[id number] Vasopressin 60 unit In 45.925 7.777 Sodium Chloride 0.9% 150 ml @ 0.03 UNITS/MIN 4.59 mls/hr IV .Q24H [facility] Rx#: [id number] propofoL 1,000 mg In 142.082 Empty Bag 1 bag @ 15 MCG/ KG/MIN 6.633 mls/hr IV . Q15H5M [facility] Rx#:[id number] Output: Urine 12 0 Other: Voiding Method Indwelling Catheter Indwelling Catheter ABP, PAP, CO, CI - Last Documented Arterial Blood Pressure 81/53 Pulmonary Artery Pressure 33/16 Cardiac Output 2.4 Cardiac Index 1.3 - Labs CBC & Chem 7: 01/08/24 03:00 01/08/24 03:00 Labs: Abnormal Lab Results - Last 24 Hours (Table) 01/07/24 01/07/24 01/07/24 Range/Units 20:42 22:25 23:44 WBC (3.8-10.6) k/uL RBC (4.30-5.90) m/uL Hgb (13.0-17.5) gm/dL Hct (39.0-53.0) % Plt Count (150-450) k/uL APTT (22.0-30.0) sec ABG pH (7.35-7.45) ABG pO2 (83-108) mmHg ABG HCO3 (21-25) mmol/L ABG Total CO2 (19-24) mmol/L ABG O2 Saturation (94-97) % ABG Lactic Acid (0.5-1.6) mmol/L Sodium 136 L (137-145) mmol/L Potassium 5.3 H (3.5-5.1) mmol/L Carbon Dioxide 20 L (22-30) mmol/L BUN 33 H (9-20) mg/dL Creatinine 3.43 H (0.66-1.25) mg/dL Glucose 142 H (74-99) mg/dL POC Glucose (mg/dL) 150 H (70-110) mg/dL Plasma Lactic Acid Alexander (0.7-2.0) mmol/L Calcium 7.4 L (8.4-10.2) mg/dL Phosphorus (2.5-4.5) mg/dL Magnesium (1.6-2.3) mg/dL Total Bilirubin (0.2-1.3) mg/dL AST (17-59) U/L ALT (4-49) U/L Lactate Dehydrogenase >00192 H (120-246) U/L Total Protein (6.3-8.2) g/dL Albumin (3.5-5.0) g/dL 01/07/24 01/08/24 01/08/24 Range/Units 23:45 03:00 03:00 WBC (3.8-10.6) k/uL RBC (4.30-5.90) m/uL Hgb (13.0-17.5) gm/dL Hct (39.0-53.0) % Plt Count (150-450) k/uL APTT 40.4 H (22.0-30.0) sec ABG pH (7.35-7.45) ABG pO2 (83-108) mmHg ABG HCO3 (21-25) mmol/L ABG Total CO2 (19-24) mmol/L ABG O2 Saturation (94-97) % ABG Lactic Acid 5.5 H* (0.5-1.6) mmol/L Sodium 135 L (137-145) mmol/L Potassium (3.5-5.1) mmol/L Carbon Dioxide (22-30) mmol/L BUN 40 H (9-20) mg/dL Creatinine 3.86 H (0.66-1.25) mg/dL Glucose 128 H (74-99) mg/dL POC Glucose (mg/dL) (70-110) mg/dL Plasma Lactic Acid Alexander (0.7-2.0) mmol/L Calcium 7.1 L (8.4-10.2) mg/dL Phosphorus 6.4 H (2.5-4.5) mg/dL Magnesium 2.5 H (1.6-2.3) mg/dL Total Bilirubin 1.9 H (0.2-1.3) mg/dL AST 69887 H (17-59) U/L ALT 7935 H (4-49) U/L Lactate Dehydrogenase (120-246) U/L Total Protein 4.3 L (6.3-8.2) g/dL Albumin 2.2 L (3.5-5.0) g/dL 01/08/24 01/08/24 01/08/24 Range/Units 03:00 03:00 06:00 WBC 14.4 H (3.8-10.6) k/uL RBC 3.58 L (4.30-5.90) m/uL Hgb 10.9 L (13.0-17.5) gm/dL Hct 31.1 L (39.0-53.0) % Plt Count 98 L (150-450) k/uL APTT (22.0-30.0) sec ABG pH (7.35-7.45) ABG pO2 (83-108) mmHg ABG HCO3 (21-25) mmol/L ABG Total CO2 (19-24) mmol/L ABG O2 Saturation (94-97) % ABG Lactic Acid 4.3 H* (0.5-1.6) mmol/L Sodium (137-145) mmol/L Potassium (3.5-5.1) mmol/L Carbon Dioxide (22-30) mmol/L BUN (9-20) mg/dL Creatinine (0.66-1.25) mg/dL Glucose (74-99) mg/dL POC Glucose (mg/dL) (70-110) mg/dL Plasma Lactic Acid Alexander (0.7-2.0) mmol/L Calcium (8.4-10.2) mg/dL Phosphorus (2.5-4.5) mg/dL Magnesium (1.6-2.3) mg/dL Total Bilirubin (0.2-1.3) mg/dL AST (17-59) U/L ALT (4-49) U/L Lactate Dehydrogenase >19516 H (120-246) U/L Total Protein (6.3-8.2) g/dL Albumin (3.5-5.0) g/dL 01/08/24 01/08/24 01/08/24 Range/Units 06:10 06:54 13:54 WBC (3.8-10.6) k/uL RBC (4.30-5.90) m/uL Hgb (13.0-17.5) gm/dL Hct (39.0-53.0) % Plt Count (150-450) k/uL APTT (22.0-30.0) sec ABG pH 7.49 H (7.35-7.45) ABG pO2 196 H (83-108) mmHg ABG HCO3 29 H (21-25) mmol/L ABG Total CO2 30 H (19-24) mmol/L ABG O2 Saturation 99.7 H (94-97) % ABG Lactic Acid (0.5-1.6) mmol/L Sodium (137-145) mmol/L Potassium (3.5-5.1) mmol/L Carbon Dioxide (22-30) mmol/L BUN (9-20) mg/dL Creatinine (0.66-1.25) mg/dL Glucose (74-99) mg/dL POC Glucose (mg/dL) (70-110) mg/dL Plasma Lactic Acid Alexander 3.0 H* (0.7-2.0) mmol/L Calcium (8.4-10.2) mg/dL Phosphorus (2.5-4.5) mg/dL Magnesium (1.6-2.3) mg/dL Total Bilirubin (0.2-1.3) mg/dL AST (17-59) U/L ALT (4-49) U/L Lactate Dehydrogenase >73186 H (120-246) U/L Total Protein (6.3-8.2) g/dL Albumin (3.5-5.0) g/dL Microbiology - Last 24 Hours (Table) 01/06/24 20:27 Gram Stain - Preliminary Sputum Sputum Culture - Preliminary
--- NOTE | 2024-01-09 02:27 | EEG ---
ELECTROENCEPHALOGRAM REPORT CLINICAL HISTORY: This is a 63-year-old gentleman with cardiopulmonary arrest who has altered mental status. The video EEG is obtained to evaluate for seizure epileptiform activity. RELEVANT MEDICATION: The patient is not on any antiepileptic drugs. EEG TYPE: A routine 21-channel EEG with video using the 10/20 electrode placement system. DESCRIPTION: Patient is intubated on a ventilator. The background consists there is no appreciable cerebral activity noted over bilateral hemispheres even with lowering the sensitivity down to 3 microvolts. There is no focal slowing. Interictal and ictal is none. ACTIVATION PROCEDURE: Photic stimulation did not evoke a posterior driving response. There is no abnormality during the photic stimulation. Hyperventilation is not performed. CLINICAL INTERPRETATION: This is an abnormal routine EEG. There is no appreciable cerebral activity on this routine EEG, even with lowering the sensitivity down to 3 microvolts. No seizure or epileptiform discharges noted during this study. Clinical correlation is recommended. KYLE / CHUNG: [id number] / MTDEunice
--- NOTE | 2024-01-09 14:34 | CDI ---
Documentation Clarification Form Date: 01/09/2024 02:14:01 PM From: Felicitas Pate Phone: Admit Date: 01/06/2024 12:24:00 PM Patient Name: Josiah Panda Visit Number: [id number] Discharge Date: 01/08/2024 10:00:00 PM ATTENTION: The Clinical Documentation Specialists (CDI) and [facility] Coding Staff appreciate your assistance in clarifying documentation. Please respond to the clarification below the line at the bottom and electronically sign. The CDI & [facility] Coding staff will review the response and follow-up if needed. Please note: Queries are made part of the Legal Health Record. If you have any questions, please contact the author of this message via ITS. Dr. Tonya Salguero Your patient has the documented diagnosis of unspecified heart failure per Consult 01/07. Additional information regarding the type of CHF is requested. History/Risk Factors: 63yo M, Outside hospitalprolonged PEA, NSTEMI, lactic acidosis, AHRF, hypoxic encephalopathy, A. fib, cardiogenic shock, CADstatus post PCI of LAD, ATN, ICM w EF 15 to 20%, Impellarelatedhemolysis, Ischemichepatitis Clinical Indicators: VS/Pulse OX: 95-97 intubated by EMS Echocardiogram Results: 01/05 Severe LVdysfunction. Nopericardial effusion Chest X Ray: 01/05 Lungs/Pleura: Cephalization of pulmonary venous flow interstitialedema. Pulmonary vascularity: Unremarkable. Heart/mediastinum: Cardiomediastinal silhouette is unremarkable. CTA: negative forpulmonary embolism, but did show some groundglass changes, potentially consistent withPNAorfluid overload. Treatment: monitored then Pt made DNR & comfort care. Pt In your professional opinion, can you please clarify the type of heart failure if known? [ ] Acute Systolic Heart Failure (reduced EF) [ ] Acute Diastolic Heart Failure (preserved EF) [ ] Acute Systolic & Diastolic Heart Failure [ ] Other, please specify [ ] Unable to determine (Template Last Revised: October 2020) MTDD
--- NOTE | 2024-01-09 18:26 | P.DS ---
Providers Date of admission: 01/06/24 12:24 Expected date of discharge: 01/09/24 Attending physician: Tonya Salguero DO Consults: 01/06/24 12:22 Consult Physician Stat Consulting Provider: Stuart June Consult Reason/Comments: Cardiac arrest Do you want consulting provider notified?: Yes Consult Physician Urgent Consulting Provider: Homer Hagan Consult Reason/Comments: Status postcardiac arrest Do you want consulting provider notified?: Already Contacted 01/06/24 14:48 Consult Physician Routine Consulting Provider: [facility] Consult Reason/Comments: Post Interventional Patient Do you want consulting provider notified?: Already Contacted 01/07/24 00:29 Consult Physician Routine Consulting Provider: Holly Garcia Consult Reason/Comments: GI bleed Do you want consulting provider notified?: Yes 01/07/24 17:42 Consult Physician Routine Consulting Provider: Pio Etienne Consult Reason/Comments: OVI Do you want consulting provider notified?: Yes 01/08/24 09:19 Consult Physician Routine Consulting Provider: Isauro Hagan Consult Reason/Comments: post cardiac arrest Do you want consulting provider notified?: Yes Primary care physician: Physician Nonstaff Hospital Course: Discharge Diagnosis: Out of hospital V fib adn PEA arrest: Total down time is greater than 60 minutes Multiorgan failure NSTEMI s/p PCI to the LAD VF storm Cardiogenic shock s/p Impella Iscemic cardiomyopathy with ejection fraction 15 to 20% lactic acidosis Acute hypoxic, vent dependent respiratory failure Anuric acute kidney injury, suspect ATN Ischemic hepatitis Impella related hemolysis vs DIC P. A. fib Probable anoxic encephalopathy Hospital Course: Patient is a 63-year-old male with known hypertension and prostate disorder who presented to the emergency department as CPR in progress. From review of EMS records the patient suffered a cardiac arrest at approximately 950 and they arrived within to fire department administering CPR third 3 defibrillations. They obtained ROSC at 1032 and proceeded with transportation to our facility patient was intubated in the field. There was concerns for possible ST segment elevated myocardial infarction on field EKG. During transportation to the emergency department the patient again lost pulses and CPR was administered. The lumen central line placed and was intubated with confirmed ET tube placement. In the emergency department he was noted to remain hypotensive and started on Levophed. After ROSC had been obtained he was transferred to the cardiac [facility] where he underwent 1 stent to the mid LAD. During his stay in [facility] he again went into V-fib requiring defibrillation x 2, amiodarone drip was started and an Impella was placed. He was subsequently transferred to the ICU. The night after admission he had decreasing blood pressures and urine output. He ultimately was started on epinephrine drip in addition to norepinephrine and lidocaine was added due to arrhythmia. He was noted to have significant hemolysis associated with his Impella device, however every time they attempted to wean Impella support patient became hypotensive. By the morning of 01/06 he was noted to have oliguric acute kidney injury, ischemic hepatitis, and continued cardiogenic shock. Nephrology consulted. Patient getting EEG to help with further prognostication. Neurology also consulted. Family agreed for comfort care measures only. Patient was made comfort care. Time of 1917 on 01/08/2024. Patient Condition at Discharge: Stable Plan - Discharge Summary New Discharge Prescriptions: No Action lisinopriL [Zestril] 10 mg PO DAILY #30 tab Tamsulosin HCl [Flomax] 0.4 mg PO HS Discharge Medication List lisinopriL [Zestril] 10 mg PO DAILY #30 tab 11/27/22 [Rx] Tamsulosin HCl [Flomax] 0.4 mg PO HS 01/06/24 [History] Follow up Appointment(s)/Referral(s): Nonstaff,Physician [Primary Care Provider] - 1 Week Discharge Disposition: - Preliminary Cause of Preliminary Cause of : [place]
--- NOTE | 2024-01-12 18:46 | CDI ---
Documentation Clarification Form Date: 01/12/2024 06:38:26 PM From: Felicitas Pate Phone: Admit Date: 01/06/2024 12:24:00 PM Patient Name: Josiah Panda Visit Number: [id number] Discharge Date: 01/08/2024 10:00:00 PM ATTENTION: The Clinical Documentation Specialists (CDI) and [facility] Coding Staff appreciate your assistance in clarifying documentation. Please respond to the clarification below the line at the bottom and electronically sign. The CDI & [facility] Coding staff will review the response and follow-up if needed. Please note: Queries are made part of the Legal Health Record. If you have any questions, please contact the author of this message via ITS. Dr. Tonya Salguero Thank you for acknowledging the previous query; however, it lacked clarification. Your patient has the documented diagnosis of unspecifiedheart failureper Consult 01/07.Additional information regarding the type ofCHFis requested. History/Risk Factors: 63yo M, Outside hospitalprolongedPEA,NSTEMI,lactic acidosis,AHRF,hypoxic encephalopathy,A. fib,cardiogenic shock,CADstatus post PCI of LAD,ATN, ICM w EF 15 to 20%,Impellarelatedhemolysis, Ischemichepatitis Clinical Indicators: VS/Pulse OX: 95-97 intubated by EMS EchocardiogramResults: 01/05 Severe LVdysfunction. Nopericardial effusion Chest X Ray: 01/05 Lungs/Pleura: Cephalization of pulmonary venous flow interstitialedema. Pulmonary vascularity: Unremarkable. Heart/mediastinum: Cardiomediastinal silhouette is unremarkable. CTA:negative forPE, but did show some groundglass changes, potentially consistent withPNAorfluid overload. Treatment: monitored then Pt madeDNRcomradha crept In your professional opinion, can you please clarify the type ofheart failure if known? [ ] Heart Failure ruled out [ ]Acute Systolic Heart Failure(reducedEF) [ ]Acute Diastolic Heart Failure(preserved EF) [ ] Acute SystolicDiastolic Heart Failure [ x] other, please specify cardiogenic shock [ ] Unable to determine (Template LastRevised: October 2020) MTDD
== END 2024-01-08 22:00 | disposition expired | DRG 215 ==
LOC: EC 11:03 → 2SICU 12:24
PROVIDERS: ADMIT Internal Medicine; ATTEND Internal Medicine
PROC: B2161ZZ Fluoroscopy of Right and Left Heart using Low Osmolar Contrast (ICD-10-PCS; 2024-01-06)
PROC: 5A2204Z Restoration of Cardiac Rhythm, Single (ICD-10-PCS; 2024-01-06)
PROC: 06HY33Z Insertion of Infusion Device into Lower Vein, Percutaneous Approach (ICD-10-PCS; 2024-01-06)
PROC: 0BH18EZ Insertion of Endotracheal Airway into Trachea, Via Natural or Artificial Opening Endoscopic (ICD-10-PCS; 2024-01-06)
PROC: 5A1945Z Respiratory Ventilation, 24-96 Consecutive Hours (ICD-10-PCS; 2024-01-06)
PROC: 3E043XZ Introduction of Vasopressor into Central Vein, Percutaneous Approach (ICD-10-PCS; 2024-01-06)
PROC: 03HY32Z Insertion of Monitoring Device into Upper Artery, Percutaneous Approach (ICD-10-PCS; 2024-01-06)
PROC: 4A133B1 Monitoring of Arterial Pressure, Peripheral, Percutaneous Approach (ICD-10-PCS; 2024-01-06)
PROC: 4A133J1 Monitoring of Arterial Pulse, Peripheral, Percutaneous Approach (ICD-10-PCS; 2024-01-06)
PROC: 3E033RZ Introduction of Antiarrhythmic into Peripheral Vein, Percutaneous Approach (ICD-10-PCS; 2024-01-06)
PROC: 02HA3RZ Insertion of Short-term External Heart Assist System into Heart, Percutaneous Approach (ICD-10-PCS; principal; 2024-01-06 11:10)
PROC: 027034Z Dilation of Coronary Artery, One Artery with Drug-eluting Intraluminal Device, Percutaneous Approach (ICD-10-PCS; 2024-01-06 11:10)
PROC: 5A0221D Assistance with Cardiac Output using Impeller Pump, Continuous (ICD-10-PCS; 2024-01-06 11:10)
PROC: B240ZZ3 Ultrasonography of Single Coronary Artery, Intravascular (ICD-10-PCS; 2024-01-06 11:10)
PROC: 4A023N8 Measurement of Cardiac Sampling and Pressure, Bilateral, Percutaneous Approach (ICD-10-PCS; 2024-01-06 11:10)
DX: I21.4 Non-ST elevation (NSTEMI) myocardial infarction (principal); N17.0 Acute kidney failure with tubular necrosis; J96.01 Acute respiratory failure with hypoxia; K72.00 Acute and subacute hepatic failure without coma; G93.1 Anoxic brain damage, not elsewhere classified; I47.20 Ventricular tachycardia, unspecified; T82.897A Other specified complication of cardiac prosthetic devices, implants and grafts, initial encounter; S27.322A Contusion of lung, bilateral, initial encounter; E87.20 Acidosis, unspecified; R57.0 Cardiogenic shock; I49.01 Ventricular fibrillation; I48.91 Unspecified atrial fibrillation; I25.119 Atherosclerotic heart disease of native coronary artery with unspecified angina pectoris; Z86.74 Personal history of sudden cardiac arrest; I10 Essential (primary) hypertension; Z66 Do not resuscitate; Z51.5 Encounter for palliative care; F17.210 Nicotine dependence, cigarettes, uncomplicated; R73.9 Hyperglycemia, unspecified; I25.5 Ischemic cardiomyopathy; E78.5 Hyperlipidemia, unspecified; N42.9 Disorder of prostate, unspecified; Y71.1 Therapeutic (nonsurgical) and rehabilitative cardiovascular devices associated with adverse incidents; Z79.899 Other long term (current) drug therapy; Z88.2 Allergy status to sulfonamides
CPT/HCPCS: 31500; 33990; 36415; 36430; 36556; 70450; 71045; 71275; 76937; 80048; 80053; 82565; 82805; 82810; 83036; 83605; 83615; 83735; 84100; 84132; 84484; 85018; 85025; 85027; 85384; 85610; 85730; 87070; 87205; 92950; 92978; 93005; 93308; 93460; 94002; 94003; 95822; 96365; 96368; 99291; 99292